=== PATIENT | female | born 1950 | race Caucasian/White ===

== ENCOUNTER → 2017-10-21 12:17 | Outpatient (CLI) | payer MEDICARE, OTHER, SELFPAY ==
[2017-10-21 15:00] LABS: Appearance Urine UA CLEAR; Bilirubin Urine UA NEGATIVE (NEGATIVE); Color Urine UA YELLOW; Glucose Urine UA NEGATIVE (Normal); Ketones Urine UA NEGATIVE (NEGATIVE); Leukocyte Esterase Urine UA 1+ (NEGATIVE); Nitrite Urine UA POSITIVE (Negative); Occult Blood Urine UA 1+ (Negative); Protein Urine UA NEGATIVE (Negative); Urobilinogen Urine UA 0.2 E.U./dL (0.2); pH Urine UA 7.5 (4.5-8.0)
[2017-10-21 15:32] LABS: Bacteria Urine Moderate (10-30); Culture Indicated Urine Specimen Cultured; RBC Urine 5-10/HPF (0-5/HPF); WBC Urine 10-30/HPF (0-5/HPF)
== END ==
PROVIDERS: Family Provider Family Medicine; PCP Family Medicine; Visit Provider Internal Medicine
DX: N39.0 Urinary tract infection, site not specified (principal)
CPT/HCPCS: 81001; 87086; 87186

== ENCOUNTER → 2017-11-11 15:23 | Outpatient (CLI) | payer MEDICARE, OTHER, SELFPAY ==
[2017-11-11 19:38] LABS: Bacteria Urine None Seen; RBC Urine None Seen (0-5/HPF); WBC Urine None Seen (0-5/HPF)
[2017-11-11 19:46] LABS: Appearance Urine UA CLEAR; Bilirubin Urine UA NEGATIVE (NEGATIVE); Color Urine UA YELLOW; Glucose Urine UA NEGATIVE (Normal); Ketones Urine UA NEGATIVE (NEGATIVE); Leukocyte Esterase Urine UA NEGATIVE (NEGATIVE); Nitrite Urine UA Negative (Negative); Occult Blood Urine UA NEGATIVE (Negative); Protein Urine UA NEGATIVE (Negative); Specific Gravity Urine UA <=1.005 (1.000-1.035); Urobilinogen Urine UA 0.2 E.U./dL (0.2); pH Urine UA 6.5 (4.5-8.0)
[2017-11-11 19:57] LABS: Culture Indicated Urine Cult Not Indicated; Squamous Epithelial Cell Urine 0-1 /HPF
== END ==
PROVIDERS: Family Provider Family Medicine; PCP Family Medicine; Visit Provider Internal Medicine
DX: N39.0 Urinary tract infection, site not specified (principal)
CPT/HCPCS: 81001

== ENCOUNTER → 2018-03-19 14:42 | Outpatient (CLI) | payer MEDICARE, OTHER, SELFPAY ==
--- NOTE | 2018-03-19 14:51 | DI.MG.S_ITS ---
BILATERAL DIGITAL DIAGNOSTIC MAMMOGRAM 3D/2D: 03/19/2018 CLINICAL: Right breast lump and pain. Comparison is made to exams dated: 04/26/2017 mammogram - [facility], 03/14/2015 mammogram - [facility], and 02/15/2014 mammogram - [facility]. The tissue of both breasts is heterogeneously dense. This may lower the sensitivity of mammography. There is a square marker overlying the skin of the lower inner right breast at the site of the patient's reported focal pain and palpable abnormality. There is no underlying mammographic abnormality. There is a 1.5 cm oval focal asymmetry in the right breast at the 12 o'clock position middle to posterior depth. There is a subcentimeter asymmetry in the right retroareolar region central to the nipple, which largely resolves with spot compression and likely represents superimposed benign fibroglandular tissue. There is a circular mole marker overlying the left breast. IMPRESSION: INCOMPLETE: NEEDS ADDITIONAL IMAGING EVALUATION 1) No mammographic abnormality to correlate with the site of the patient's reported focal breast pain and palpable abnormality. Targeted diagnostic ultrasound recommended for further evaluation, which will be performed immediately following this exam. 2) Right breast asymmetries as described above. Targeted diagnostic ultrasound recommended for further evaluation, which will be performed immediately following this exam. This exam was interpreted at Station ID: [id number]. NOTE: For mammograms, a report in lay terms will be sent to the patient. Approximately 15% of breast malignancies will not be visualized mammographically. In the management of a palpable breast mass, a negative mammogram must not discourage biopsy of a clinically suspicious lesion. Electronically Signed By: Tobi Chow M.D. ecl/:03/20/2018 09:37:59 copy to: MARA GARRISON letter sent: Additional Imaging Needed ACR BI-RADS Category 0: Incomplete [id number]
--- NOTE | 2018-03-19 14:51 | DI.US.S_ITS ---
LIMITED ULTRASOUND OF RIGHT BREAST: 03/19/2018 CLINICAL: Palpable right breast lump and focal pain. Comparison is made to exams dated: 03/19/2018 mammogram, 04/26/2017 mammogram - [facility], and 03/14/2015 mammogram - [facility]. Real-time and Doppler ultrasound of the right breast lower inner quadrant, 12 o'clock, 6 o'clock, and retroareolar regions were performed. Nick scale images of the real-time examination were reviewed. There is no ultrasound correlate for the previously noted 1.5 cm oval focal asymmetry at 12 o'clock position middle to posterior depth seen on comparison screening mammograms. There is no ultrasound correlate for the previously noted suncentimeter asymmetry in the right retroareolar region on comparison screening mammograms, which also resolved on additional diagnostic mammogram views performed earlier today and likely represented benign superimposed tissues. Targeted ultrasound was performed in the region of the patient's reported focal painful palpable abnormality in the right breast lower inner quadrant. No underlying breast mass or abnormality is identified. IMPRESSION: PROBABLY BENIGN 1) No ultrasound correlate for the 1.5 cm oval focal asymmetry in the right breast seen on screening and diagnostic mammography. A follow-up mammogram and possible ultrasound in 6 months is recommended to demonstrate stability. The patient is advised to monitor her breasts and to return sooner for re-evaluation should she feel anything grow or change. 2) No ultrasound findings to explain patient's reported focal painful palpable abnormality in the right lower inner quadrant. Recommend clinical follow-up for further evaluation and management of the patient's reported symptoms. This area can also be reevaluated on the follow-up imaging recommended above. Electronically Signed By: Tobi Chow M.D. ecl/:03/20/2018 09:46:27 copy to: MARA GARRISON letter sent: Followup Recommended Ultrasound BI-RADS: 3 Probably benign
== END ==
PROVIDERS: Family Provider Family Medicine; PCP Family Medicine
DX: R92.8 Other abnormal and inconclusive findings on diagnostic imaging of breast (principal); N64.4 Mastodynia; N64.89 Other specified disorders of breast
CPT/HCPCS: 76642; 77066; G0279

== ENCOUNTER 2018-03-25 07:02 | Day surgery (SDC) | payer MEDICARE, OTHER, SELFPAY ==
[2018-03-25 07:32] VITALS: BP 105/74; PULSE 74; RESP 14; TEMP 36.3; O2SAT 96; BMI 20.6
[2018-03-25] MEDS: PROPARACAINE 0.5% OPHTH SOL 2 DROPS EYE-RIGHT (07:46)
--- NOTE | 2018-03-25 07:55 | SUR.PREOP ---
Confirmed with patient that her hearing aids are removed and secured.
--- NOTE | 2018-03-25 08:11 | PM.PREOP ---
Pre-operative Note Interval Note History & Physical reviewed/Exam performed by Physician: No Changes to H&P: No
--- NOTE | 2018-03-25 08:11 | PM.OP.1 ---
Operative Date/Time/Diagnoses Pre-op diagnosis: Nuclear cataract right eye Procedure & Clinicians Procedure: Cataract Surgery Same procedure as scheduled: Yes Surgeon: Sumanth Tellez Anesthesia Type: MAC +/- and Sedation Operative Notes Procedure in detail: Patient brought to the operating suite. Tetracaine drops placed in the right eye. The marking instrument was used to luna the vertical and horizontal meridian. Patient was prepped and draped in sterile manner. Wire lid speculum was placed in the eye. The 60 degree meridian was marked. Betadine drops were placed on the eye. This was irrigated. Lidocaine jelly was placed on the eye. A paracentesis port was created with a side-port blade. 0.1 mL 1% preservative free lidocaine was injected into the anterior chamber. The anterior chamber was deepened with viscoelastic. 2.6 mm keratome was used to create a temporal clear corneal incision. Cystotome and Utrata forceps were used to create continuous tear capsulorrhexis. Balanced salt solution was used to hydro dissect the nucleus. The phacoemulsification handpiece was inserted and the nucleus was removed using the stop and chop technique. The irrigation aspiration handpiece was inserted and the remaining cortex was removed. Anterior chamber was deepened with viscoelastic. An Felix [id number] intraocular lens with a power of 25.5 was injected into the capsular bag. Irrigation aspiration handpiece was inserted and the remaining viscoelastic was removed. The lens was rotated to the 60 degree meridian. Incision was hydrated with balanced salt solution and found to be leak free with pressure with Weck-Hillary sponges. 0.1 mL Vigamox injected anterior chamber. 0.3 mL Kenalog 10 mg was injected subconjunctivally. Lid speculum was removed. The patient left the operating room in excellent condition. Complications: none Condition: stable Disposition: same day surgery
[2018-03-25] MEDS: CATARACT EYE COMPOUND (10 DROPS/SYRINGE) 3 DROPS EYE-OP (08:13)
[2018-03-25] MEDS: MOXIFLOXACIN OPHTH DROPS 3 ML BOTTLE 2 DROPS INJ (08:19)
[2018-03-25] MEDS: PHENYLEPHRINE/LIDOCAINE VIAL (OR) 0.2 ML EYE-OP (08:19)
[2018-03-25] MEDS: TRIAMCINOLONE 50 MG/5 ML VIAL INJ (08:19)
[2018-03-25] MEDS: CHONDROIDTIN/SOD HYALURONATE 1.05 ML SYRINGE INTRAOCULA (08:20)
[2018-03-25] MEDS: LIDOCAINE JELLY 2% 5 ML 1 APPLIC TOP (08:20)
[2018-03-25] MEDS: BALANCED SALT IRRIG SOLN NO.2 500 ML, EPINEPHrine 1 MG IRR (08:21)
[2018-03-25] MEDS: TETRACAINE 0.5% OPHTH DROPS 4 ML 2 DROPS EYE-OP (08:21)
[2018-03-25 08:45] VITALS: BP 98/64; PULSE 68; RESP 18; TEMP 36.4; O2SAT 95
== END 2018-03-25 09:03 ==
PROVIDERS: Family Provider Family Medicine; PCP Family Medicine; Visit Provider Ophthalmology
DX: H25.11 Age-related nuclear cataract, right eye (principal)
CPT/HCPCS: J0171; J2250; J3010; J3301; V2787

== ENCOUNTER 2018-04-08 08:59 | Day surgery (SDC) | payer MEDICARE, OTHER, SELFPAY ==
[2018-04-08] MEDS: PROPARACAINE 0.5% OPHTH SOL 2 DROPS EYE-OP (09:47)
[2018-04-08] MEDS: CATARACT EYE COMPOUND (10 DROPS/SYRINGE) 3 DROPS EYE-OP (09:50)
[2018-04-08 09:52] VITALS: BP 117/71; PULSE 64; RESP 15; TEMP 36.6; O2SAT 98; BMI 20.6
--- NOTE | 2018-04-08 10:22 | PM.PREOP ---
Pre-operative Note Interval Note History & Physical reviewed/Exam performed by Physician: No Changes to H&P: No
--- NOTE | 2018-04-08 10:23 | PM.OP.1 ---
Operative Date/Time/Diagnoses Pre-op diagnosis: Nuclear Cataract Left eye Post-op diagnosis: same Procedure & Clinicians Surgeon: Sumanth Tellez Anesthesia Type: MAC +/- and Sedation Operative Notes Procedure in detail: Patient brought to the operating suite. Tetracaine drops placed in the left eye. The marking instrument was used to luna the vertical and horizontal meridians. Patient was prepped and draped in sterile manner. Wire lid speculum was placed in the eye. Betadine drops were placed on the eye. This was irrigated. Lidocaine jelly was placed on the eye. A paracentesis port was created with a side-port blade. 0.1 mL 1% preservative free lidocaine was injected into the anterior chamber. The anterior chamber was deepened with viscoelastic. 2.6 mm keratome was used to create a temporal clear corneal incision. Cystotome and Utrata forceps were used to create continuous tear capsulorrhexis. Balanced salt solution was used to hydro dissect the nucleus. The phacoemulsification handpiece was inserted and the nucleus was removed using the stop and chop technique. The irrigation aspiration handpiece was inserted and the remaining cortex was removed. Anterior chamber was deepened with viscoelastic. An Felix [id number] intraocular lens with a power of 26.5 was injected into the capsular bag. Irrigation aspiration handpiece was inserted and the remaining viscoelastic was removed. The lens was rotated to the 90 degree meridian. Incision was hydrated with balanced salt solution and found to be leak free with pressure with Weck-Hillary sponges. 0.1 mL Vigamox injected anterior chamber. 0.3 mL Kenalog 10 mg was injected subconjunctivally. Lid speculum was removed. The patient left the operating room in excellent condition. Complications: none Condition: stable Disposition: same day surgery
[2018-04-08] MEDS: MOXIFLOXACIN OPHTH DROPS 3 ML BOTTLE 2 DROPS INJ (10:34)
[2018-04-08] MEDS: PHENYLEPHRINE/LIDOCAINE VIAL (OR) 0.2 ML EYE-OP (10:34)
[2018-04-08] MEDS: CHONDROIDTIN/SOD HYALURONATE 1.05 ML SYRINGE INTRAOCULA (10:34)
[2018-04-08] MEDS: TRIAMCINOLONE 50 MG/5 ML VIAL INJ (10:34)
[2018-04-08] MEDS: TETRACAINE 0.5% OPHTH DROPS 4 ML 2 DROPS EYE-OP (10:35)
[2018-04-08] MEDS: LIDOCAINE JELLY 2% 5 ML 1 APPLIC TOP (10:35)
[2018-04-08] MEDS: BALANCED SALT IRRIG SOLN NO.2 500 ML, EPINEPHrine 1 MG IRR (10:35)
[2018-04-08 10:50] VITALS: BP 102/69; PULSE 73; RESP 18; O2SAT 95
== END 2018-04-08 11:18 ==
PROVIDERS: Family Provider Family Medicine; PCP Family Medicine; Visit Provider Ophthalmology
DX: H25.12 Age-related nuclear cataract, left eye (principal)
CPT/HCPCS: J0171; J2250; J3301; V2787

== ENCOUNTER → 2018-09-30 11:49 | Outpatient (CLI) | payer MEDICARE, OTHER, SELFPAY ==
--- NOTE | 2018-09-30 11:52 | DI.RAD.S_ITS ---
PROCEDURE: XR LUMBAR SPINE MIN 4V INDICATIONS: New onset low back pain TECHNIQUE: 5 views of the lumbar spine acquired. COMPARISON: [facility], , L-SPINE WITHOUT CONTRAST, 03/05/2014, 11:12. FINDINGS: Bones: 5 [id number] vertebrae are present. There is severe levoscoliosis. No vertebral body compression fractures. No suspicious bony lesions. Severe degenerative disc disease is present at L1-L2, L2-L3, and L3-L4. There is moderate to severe facet arthropathy at L4-L5 and L5-S1. On flexion and extension, there is limited range of motion. There is osteopenia. Soft tissues: Overlying bowel gas pattern is normal. No suspicious soft tissue calcifications. Flexion/extension: There is normal range of motion, with preserved normal alignment. IMPRESSION: 1. Severe levoscoliosis. 2. Severe degenerative disc disease. 3. Moderate to severe facet arthropathy in the lower lumbar spine. 4. Reduced range of motion on flexion and extension. 5. Osteopenia. Dictated by: Med Butt M.D. on 09/30/2018 at 17:00 Approved by: Med Butt M.D. on 09/30/2018 at 17:03
== END ==
PROVIDERS: Family Provider Family Medicine; PCP Family Medicine; Visit Provider Family Medicine
DX: M54.5 Low back pain (principal); M41.86 Other forms of scoliosis, lumbar region; M51.36 Other intervertebral disc degeneration, lumbar region; M47.816 Spondylosis without myelopathy or radiculopathy, lumbar region; M85.88 Other specified disorders of bone density and structure, other site; Z78.0 Asymptomatic menopausal state; M81.0 Age-related osteoporosis without current pathological fracture
CPT/HCPCS: 72110; 77080

== ENCOUNTER → 2018-11-26 13:54 | Outpatient (CLI) | payer MEDICARE, OTHER, SELFPAY ==
--- NOTE | 2018-11-26 13:59 | DI.MRI.S_ITS ---
PROCEDURE: MR LUMBAR SPINE WO CON INDICATIONS: Low back pain TECHNIQUE: Noncontrast sagittal T1 spin echo and T2 fast echo, sagittal STIR, axial T1 and T2 fast spin echo through the lumbar spine. In cases with scoliosis, additional coronal T2 fast spin echo may be performed. COMPARISON: [facility], MR, L-SPINE WITHOUT CONTRAST, 03/05/2014, 11:12. [facility], CR, XR LUMBAR SPINE MIN 4V, 09/30/2018, 12:04. FINDINGS: Image quality: Excellent. Alignment and Curvature: There is severe leftward curvature of the upper lumbar spine, as before. 5 lumbar type vertebral bodies are present by plain film. Mild grade 1 retrolisthesis of T12 on L1, L1 on L2 and L2 on L3. Mild grade 1 anterolisthesis of L3 on L4. Mild grade 1 retrolisthesis of L4 on L5. Mild grade 1 anterolisthesis of L5 on S1. Bone Marrow: Marrow is of normal overall signal. No acute vertebral body compression fractures. Mild reactive signal within the endplates adjacent to the T9-T10, T10-T11, T11-T12, and L4-L5 intervertebral discs. There is moderate reactive signal within the endplates adjacent to the 1 L2, L2-L3, and L3-L4 intervertebral discs. Spinal Cord: Conus medullaris terminates at the L1-L2 disc space level. Visualized cord demonstrates normal signal and size. Paraspinous Soft Tissues: No paravertebral masses. T10-T11: Mild disc height loss and desiccation. Mild diffuse disc bulge. Mild bilateral facet hypertrophy. Mild canal stenosis. Moderate left and mild right foraminal stenosis. No change. T11-T12: Mild disc height loss and desiccation. Mild diffuse disc bulge. Mild facet hypertrophy and ligament flavum hypertrophy bilaterally. Mild canal stenosis. Mild bilateral foraminal stenosis. T12-L1: Moderate disc desiccation. Mild disc height loss. Mild diffuse disc bulge. Mild facet and ligament flavum hypertrophy bilaterally. Mild canal stenosis. Mild bilateral foraminal stenosis. No change. L1-L2: Severe disc height loss and desiccation. Mild diffuse disc bulge with small superimposed right far lateral protrusion. Mild bilateral facet and ligamentum flavum hypertrophy. Mild canal stenosis. Mild right greater than left foraminal stenosis. No change. L2-L3: Severe disc height loss and desiccation. Mild diffuse disc bulge/osteophyte. Mild facet and ligament flavum hypertrophy. Mild canal stenosis. Mild right greater than left foraminal stenosis. No change. L3-L4: Severe disc height loss and desiccation. Mild diffuse disc bulge/osteophyte. Mild facet hypertrophy bilaterally. Mild canal stenosis. Moderate right and mild left foraminal stenosis. No change. L4-L5: Mild disc height loss. Moderate disc desiccation. Moderate diffuse disc bulge with superimposed left far lateral broad-based protrusion. Moderate bilateral facet hypertrophy. Moderate ligament flavum hypertrophy. Increased, mild canal stenosis. Increased, severe left foraminal stenosis. No change in mild right foraminal stenosis. There is new compression of the left L4 nerve root. There is increased left lateral recess stenosis with left L5 nerve root compression. L5-S1: Mild disc height loss. Moderate disc desiccation. Mild diffuse disc bulge. Mild bilateral facet hypertrophy. Mild canal stenosis. Mild subarticular foraminal stenosis bilaterally. No change. IMPRESSION: 1. Severe leftward curvature of the upper lumbar spine. 2. Multilevel degenerative disc and facet disease, as well as ligamentum flavum hypertrophy and epidural lipomatosis. 3. Mild multilevel canal stenoses. 4. Multilevel foraminal stenoses, worst at L4-L5 on the left, where there is associated L4 nerve root compression. 5. Increased left lateral recess stenosis L4-L5 associated with left L5 nerve root compression. 6. Recommend correlation with clinical symptoms to ascertain relevance of these findings. Dictated by: Luigi Haley M.D. on 11/26/2018 at 16:35 Approved by: Luigi Haley M.D. on 11/26/2018 at 16:43
--- NOTE | 2018-11-26 13:59 | DI.MG.S_ITS ---
UNILATERAL RIGHT DIGITAL DIAGNOSTIC MAMMOGRAM 3D/2D: 11/26/2018 CLINICAL: Short term follow up right breast. Comparison is made to exams dated: 03/19/2018 mammogram, 04/26/2017 mammogram - [facility], 03/14/2015 mammogram - [facility], and 03/19/2018 ultrasound - [facility]. The tissue of right breast is heterogeneously dense. This may lower the sensitivity of mammography. Previously identified 1.5 cm oval focal asymmetry in the right breast at the 12 o'clock position middle to posterior depth remains stable. This demonstrated no ultrasound correlate on comparison right breast ultrasound of 03/19/2018. Previously identified subcentimeter asymmetry in the right retroareolar region central to the nipple remains stable. This demonstrated no ultrasound correlate on comparison right breast ultrasound of 03/19/2018. IMPRESSION: PROBABLY BENIGN 1) Previously identified 1.5 cm oval focal asymmetry in the right breast at the 12 o'clock position middle to posterior depth remains stable. A follow-up diagnostic mammogram (with possible ultrasound if indicated) in 6 months is recommended to demonstrate continued stability. The patient is advised to monitor her breasts and to return sooner for reevaluation if she feels anything grow or change in her breasts. 2) Previously identified subcentimeter asymmetry in the right retroareolar region central to the nipple remains stable. This demonstrated no ultrasound correlate on comparison right breast ultrasound of 03/19/2018. A follow-up diagnostic mammogram (with possible ultrasound if indicated) in 6 months is recommended to demonstrate continued stability. The patient is advised to monitor her breasts and to return sooner for reevaluation if she feels anything grow or change in her breasts. This exam was interpreted at Station ID: [id number]. NOTE: For mammograms, a report in lay terms will be sent to the patient. Approximately 15% of breast malignancies will not be visualized mammographically. In the management of a palpable breast mass, a negative mammogram must not discourage biopsy of a clinically suspicious lesion. Electronically Signed By: Tobi Chow M.D. ecl/:11/26/2018 15:32:54 copy to: MARA GARRISON letter sent: Followup Recommended ACR BI-RADS Category 3: Probably benign [id number]
== END ==
PROVIDERS: Family Provider Family Medicine; PCP Family Medicine; Visit Provider Physical Medicine & Rehabilitation
DX: R92.8 Other abnormal and inconclusive findings on diagnostic imaging of breast (principal); N64.89 Other specified disorders of breast; M54.5 Low back pain; M51.16 Intervertebral disc disorders with radiculopathy, lumbar region; M51.17 Intervertebral disc disorders with radiculopathy, lumbosacral region; M48.061 Spinal stenosis, lumbar region without neurogenic claudication; M48.07 Spinal stenosis, lumbosacral region; M47.27 Other spondylosis with radiculopathy, lumbosacral region; E88.2 Lipomatosis, not elsewhere classified
CPT/HCPCS: 72148; 77065; G0279

== ENCOUNTER 2019-02-05 12:12 | Outpatient (CLI) | payer MEDICARE, OTHER, SELFPAY ==
[2019-02-05] VITALS (9 sets, daily range): BP systolic 102–161; BP diastolic 62–93; PULSE 71–121; RESP 16; O2SAT 96–98
--- NOTE | 2019-02-05 12:15 | DI.RAD.S_ITS ---
PROCEDURE: PAIN L/S FACET INJ/BLK 1ST MALIK COMPARISON: None. INDICATIONS: SPONDYLOSIS FINDINGS: 6 intraoperative fluoroscopy images demonstrate needle localization at L2-L3 and L3-L4 facet joints bilaterally. Note is made of moderate to severe levoscoliosis. Large bridging osteophytes are present. IMPRESSION: Fluoroscopy for pain management. Dictated by: Med Butt M.D. on 02/05/2019 at 14:30 Approved by: Med Butt M.D. on 02/05/2019 at 14:31
[2019-02-05] MEDS: MIDAZOLAM 5 MG/5 ML VIAL IV (13:42)
[2019-02-05] MEDS: fentaNYL 100 MCG/2 ML INJ 50 MCG IV (13:42)
[2019-02-05] MEDS: BETAMETHASONE 30 MG/5 ML MDV 6 MG INJ (13:47)
[2019-02-05] MEDS: LIDOCAINE 1% 20 ML 10 ML INJ (13:47)
[2019-02-05] MEDS: IOPAMIDOL 15 ML VIAL 3 ML INJ (13:47)
[2019-02-05] MEDS: BUPIVACAINE 0.5% (PF) VIAL 2 ML INJ (13:47)
--- NOTE | 2019-02-05 14:00 | P.PCN_ITS ---
Procedures Date/Time Date of procedure: 02/05/19 Time of procedure: 14:00 General Procedure description: PREOP DIAGNOSIS 1. FACET ARTHROPATHY, 2. AXIAL LBP, 3. MULTILEVEL DDD, POST OP DIAGNOSIS 1. FACET ARTHROPATHY, 2. AXIAL LBP, 3. MULTILEVEL DDD, PROCEDURES 1. FLUORSCOPICALLY GUIDED CONTRAST CONTROLLED FACET JOINT INJECTIONS BILATERAL L2/3, L3/4 SURGEON: Paul Knight, INDICATION Abby is referred by Dr. Pinto is referred for treatment of Axial LBP FINDINGS Multilevel Facet Arthropathy with Clinically significant axial LBP DESCRIPTION OF PROCEDURE Fluoroscopically guided, contrast-controlled bilateral L2/3, L3/4 facet joint injections. Following review of allergy and review of potential side effects and complications, including, but not necessarily limited to, infection, allergic reaction, local tissue breakdown, stroke, temporary or permanent nerve injury, paralysis, and possible , the patient indicated that the patient understood and agreed to proceed. An informed consent document was signed by the patient, witnessed by a nurse, and placed in the patient's chart. Additionally, other treatment options including medications, modalities, and physical therapy were reviewed with the patient. After review of previous anaesthesic history and IV conscious sedation the patient was deemed safe to proceed with todays procedure with IV conscious sedation as ASA class II designation. Safety time-out was performed to confirm patient ID, procedure to be performed and site of procedure. IV sedation was accomplished with a combination of 4mg of Versed and 50mcg of Fentanyl administered by the RN after DO order, titrated to patient comfort during the course of the procedure while the patient remained responsive to all verbal commands In the prone position, following sterile prep and drape of the lumbar region, the posterior aspect of the L2/3, L3/4 facet joints were identified fluoroscopically. The skin was anesthetized via a 25-gauge 1.5-inch needle with 1% lidocaine solution into the corresponding facet joints. At this point, a 22- gauge 3.5-inch spinal needle was atraumatically introduced and advanced under fluoroscopic guidance into the corresponding facet joints. Following negative aspiration, injections of approximately 0.2-cc of Isovue 200 confirmed interarticular placement without vascular uptake. The identical procedure was then performed at the L2/3, L3/4 facet joints on the left. Radiological data, including multiple fluoroscopic views of the lumbosacral spine, reveal a spinal needle at the L2/3, L3/4 facet joints bilaterally. Subsequent views show flow of contrast material both superiorly and inferiorly within the joint space without vascular or intrathecal uptake. At this point, a total of 0.5 cc including a mixture of 0.25cc Marcaine and 0.25cc betamethasone was injected without complication into each of the corresponding facet joints. The patient tolerated the procedure well without signs or symptoms of complications prior to transfer to the recovery area continued monitoring without incident. The patient was then transferred to the recovery area where they were observed for an appropriate period of time after the injection. The patient reported a VAS score of 7 prior to the procedure and a post-procedure VAS of 0. Total Fluoroscopy Time: 20.3 seconds Total Conscious Sedation Time: 24min POST OP INSTRUCTIONS The patient was provided a Pain Log to continue to record their response to the target-specific procedure prior to follow-up visit with their referring physician. Additionally, specific post-injection care instructions and a contact number to our office were provided if concerns arise regarding possible complications associated with the procedure are suspected. Paul Knight DO Complications: none
--- NOTE | 2019-02-05 14:48 | PC.NURSE ---
Post procedure note: Medicated per providers orders. Patient tolerated procedure well. VSS throughout. Able to sit up and transfer to /c without any difficulties. Handoff report given to Regis Jones RN @[id number] Pain level 0/10. No unusual numbness or tingling to lower extremities.
== END 2019-02-05 14:32 | disposition home or self-care (01) ==
LOC: RAD 12:14
PROVIDERS: Family Provider Family Medicine; PCP Family Medicine; Visit Provider Physical Medicine & Rehabilitation
DX: M47.816 Spondylosis without myelopathy or radiculopathy, lumbar region (principal); M54.5 Low back pain; M51.36 Other intervertebral disc degeneration, lumbar region
CPT/HCPCS: 64493; 64494; 99152; J0702; J2250; J3010

== ENCOUNTER → 2019-02-11 14:33 | Outpatient (CLI) | payer MEDICARE, OTHER, SELFPAY ==
--- NOTE | 2019-02-11 14:35 | DI.RAD.S_ITS ---
PROCEDURE: XR ANKLE RT MIN 3V INDICATIONS: R ankle injury/pain TECHNIQUE: 3 views of the ankle were acquired. COMPARISON: None. FINDINGS: Bones: No fractures or dislocations. Ankle mortise is normally aligned. No suspicious bony lesions. Soft tissues: No tibiotalar joint effusion. Achilles tendon appears normal. IMPRESSION: No trauma found. Incidental note is made of a partially visualized osteotomy fixation screw first metatarsal distally. Dictated by: Dick Pugh M.D. on 02/11/2019 at 15:02 Approved by: Dick Pugh M.D. on 02/11/2019 at 15:03
== END ==
PROVIDERS: PCP Family Medicine; Visit Provider Family Medicine
DX: M25.571 Pain in right ankle and joints of right foot (principal); S99.911A Unspecified injury of right ankle, initial encounter; X58.XXXA Exposure to other specified factors, initial encounter
CPT/HCPCS: 73610

== ENCOUNTER → 2019-04-21 16:14 | Outpatient (CLI) | payer MEDICARE, OTHER, SELFPAY ==
--- NOTE | 2019-04-21 16:16 | DI.MRI.S_ITS ---
PROCEDURE: MR ANKLE RT WO CON INDICATIONS: right ankle injury/pain TECHNIQUE: Noncontrast sagittal T1 spin echo and T2 fast spin echo with fat saturation, axial proton density fast spin echo and T2 fast spin echo with fat saturation, coronal T1 spin echo and T2 fast spin echo with fat saturation through the ankle/hindfoot. COMPARISON: [facility], CR, XR ANKLE RT MIN 3V, 02/11/2019, 14:32. FINDINGS: Image quality: Diagnostic. Bones and joints: No acute fracture, dislocation, or suspicious osseous lesion is identified involving the osseous structures of the midfoot or hindfoot. The alignment of the ankle mortise is anatomic. There are no osteochondral defects identified involving the tibial plafond toward the talar dome. There are mild degenerative changes identified involving the posterior subtalar joint. No significant joint effusions of the midfoot or hindfoot are appreciated. Medial structures: The deltoid and spring ligaments appear to be intact. The posterior tibialis tendon demonstrates moderate focal enlargement along the medial aspect of the body of the talus with associated moderate grade intrasubstance partial thickness tearing and fluid contained within its corresponding tendon sheath. The flexor digitorum longus and flexor hallucis longus tendons appear to be within normal limits. The posterior tibial nerve through the region of the tarsal tunnel is unremarkable. Lateral structures: The anterior and posterior distal tibiofibular ligaments are intact. The anterior and posterior talofibular ligaments are also intact. The calcaneofibular ligament is not well-seen, but probably is intact. The peroneus brevis and peroneus longus tendons are noted to be intact. There is mild flattening involving the peroneus brevis tendon and slight increased signal involving the peroneus longus tendon. No significant fluid is contained within their corresponding tendon sheaths. Normal fatty signal is seen within the sinus tarsi. Anterior structures: The tibialis anterior, extensor hallucis longus, and extensor digitorum longus tendons appear intact. Posterior and plantar structures: Achilles tendon is intact. Medial and lateral bands of the plantar fascia are of normal thickness. IMPRESSION: 1. Moderate grade intrasubstance partial thickness tearing and tendinopathy of the tibialis posterior tendon with corresponding tenosynovitis. 2. Probable mild peroneus brevis and peroneus longus tendinopathy without significant tearing. 3. Mild degenerative changes involving the posterior subtalar joint. Dictated by: David Casper M.D. on 04/21/2019 at 16:27 Approved by: David Casper M.D. on 04/21/2019 at 16:30
== END ==
PROVIDERS: PCP Family Medicine; Referring Provider Family Medicine; Visit Provider Family Medicine
DX: S99.911A Unspecified injury of right ankle, initial encounter (principal); S96.811A Strain of other specified muscles and tendons at ankle and foot level, right foot, initial encounter; M25.571 Pain in right ankle and joints of right foot; M65.871 Other synovitis and tenosynovitis, right ankle and foot
CPT/HCPCS: 73721

== ENCOUNTER 2019-04-24 13:33 | Outpatient (CLI) | payer MEDICARE, OTHER, SELFPAY ==
[2019-04-24] VITALS (10 sets, daily range): BP systolic 114–139; BP diastolic 78–95; PULSE 65–81; RESP 16; TEMP 36.4; O2SAT 97–99
--- NOTE | 2019-04-24 13:36 | DI.RAD.S_ITS ---
PROCEDURE: PAIN L/S FACET INJ/BLK 1ST MALIK COMPARISON: [facility], XA, PAIN L/S FACET INJ/BLK 1ST MALIK, 02/05/2019, 13:39. INDICATIONS: SPONDYLOSIS FINDINGS: Needle tip localizations are appropriate for L2, L3, and L4 bilateral medial branch blocks. IMPRESSION: Normal needle tip positioning for medial branch block procedures, 6 total, discussed above. Dictated by: Dick Pugh M.D. on 04/24/2019 at 15:42 Approved by: Dick Pugh M.D. on 04/24/2019 at 15:43
[2019-04-24] MEDS: MIDAZOLAM 5 MG/5 ML VIAL IV (14:07)
[2019-04-24] MEDS: fentaNYL 100 MCG/2 ML INJ 50 MCG IV (14:08)
[2019-04-24] MEDS: LIDOCAINE 1% 20 ML 5 ML INJ (14:17)
[2019-04-24] MEDS: IOPAMIDOL 15 ML VIAL 3 ML INJ (14:17)
[2019-04-24] MEDS: BUPIVACAINE 0.5% (PF) VIAL 2 ML INJ (14:17)
--- NOTE | 2019-04-24 14:25 | PC.NURSE ---
ASSISTING PT OFF TABLE AND TRANSPORTING TO POST PROC AREA IN STABLE CONDITION. PASSING RN CARE OF PT OFF TO KIMBERLY Iglesias RN.
--- NOTE | 2019-04-24 14:30 | PM.PROC.1 ---
Procedures Date/Time Date of procedure: 04/24/19 Time of procedure: 14:30 General Procedure description: POST OP DIAGNOSIS 1. FACET ARTHROPATHY PROCEDURES 1. BILATERAL L2, L3, L4 DIAGNOSTIC MB BLOCKS PHYSICIAN: DO ADOLFO Ding Abby is referred by Dr. Pinto for treatment of Bilateral Axial LBP. DESCRIPTION OF PROCEDURE Fluoroscopically guided, contrast-controlled bilateral L2, L3, L4 medial branch blocks with 0.5cc of 0.5% Marcaine. Following review of allergy and review of potential side effects and complications, including, but not necessarily limited to, infection, allergic reaction, local tissue breakdown, nerve injury, paralysis, stroke and possible , the patient indicated that the patient understood and agreed to proceed. An informed consent document was signed by the patient, witnessed by a nurse, and placed in the patient's chart. After review of previous anaesthesic history and IV conscious sedation the patient was deemed safe to proceed with todays procedure with IV conscious sedation as ASA class II designation. Safety time-out was performed to confirm patient ID, procedure to be performed and site of procedure. IV sedation was accomplished with a combination of 2mg of Versed and 50mcg of Fentantyl was administered by the RN after DO order, titrated to patient comfort during the course of the procedure while the patient remained responsive to all verbal commands In the prone position, following sterile prep and drape of the lumbar region, the right L2, L3, L4 anatomical location of the medial branch of the dorsal ramus was identified fluoroscopically. Subsequently an anesthetic skin wheal using 1% lidocaine solution was initiated at each of the anatomical spots. Subsequently then a 22-gauge 3.5-inch spinal needle was atraumatically introduced and advanced under fluoroscopic guidance at each of the corresponding sites at the right L2, L3, L4 MB. After negative aspiration, 0.2cc of Isovue 200 was injected, confirming placement without vascular or intrathecal uptake. Subsequently then 0.5cc of 0.5% Marcaine solution was injected at each of the corresponding sites at the right L2, L3, L4 medial branch locations. The identical procedure was replicated on the left. The patient tolerated the procedure well without signs or symptoms of complications. The patient tolerated the procedure well without signs or symptoms of complications prior to transfer to the recovery area continued monitoring without incident. Post-procedure, the patient was monitored initiating provocative activities to measure the amount of relief from block of the facetogenic pain. The patient reported a VAS of 7 prior to the procedure and a post-procedure VAS of 1. It has been a pleasure to assist in the diagnostic and therapeutic care of your patient. Total Fluoroscopy Time: 12 seconds Total Conscious Sedation Time: 24min POST OP INSTRUCTIONS The patient was provided with a Pain Log to complete over the next several hours and subsequent days prior to the patient's follow up with the ordering physician. If the patient has kaiako kura kaupapa maori relief to the solution applied, then they may be a candidate for medial branch rhizotomy. The patient is aware, was provided, once again, with a Pain Log and will follow up with the referring physician for review and clinical correlation Paul Knight DO Complications: none
--- NOTE | 2019-04-24 15:02 | PC.NURSE ---
patient arrived at 1429 via w/c from procedure, able to transfer self to chair, pt states pain free at this time, snacks and water given and tolerated. Assuming care from Maria Del Carmen
== END 2019-04-24 14:57 | disposition home or self-care (01) ==
LOC: RAD 13:36
PROVIDERS: PCP Family Medicine; Referring Provider Physical Medicine & Rehabilitation; Visit Provider Physical Medicine & Rehabilitation
DX: M47.816 Spondylosis without myelopathy or radiculopathy, lumbar region (principal); M54.5 Low back pain
CPT/HCPCS: 64493; 64494; 99152; J2250; J3010

== ENCOUNTER → 2019-07-25 09:58 | Outpatient (CLI) | payer MEDICARE, OTHER, SELFPAY ==
[2019-07-26 08:19] LABS: COVID19 Sendout Not Detected (Not Detect)
== END ==
PROVIDERS: PCP Family Medicine; Visit Provider Physician Assistant
DX: Z01.818 Encounter for other preprocedural examination (principal)
CPT/HCPCS: 87635

== ENCOUNTER 2019-07-28 09:53 | Outpatient (CLI) | payer MEDICARE, OTHER, SELFPAY ==
[2019-07-28] VITALS (14 sets, daily range): BP systolic 123–155; BP diastolic 69–94; PULSE 67–84; RESP 14–16; TEMP 36.4; O2SAT 96–100
--- NOTE | 2019-07-28 09:56 | DI.RAD.S_ITS ---
PROCEDURE: PAIN L/S MED/LAT N RFA BILAT INDICATIONS: SPONDYLOSIS FINDINGS: Fluoroscopic spot filming was performed to verify placement of spinal needles at the L2, L3, L4 level(s), as labeled on the films. Appropriate location(s) of the needle tip(s) was confirmed by injection of iodinated contrast. Dictated by: Colton Souza M.D. on 07/28/2019 at 14:52 Approved by: Colton Souza M.D. on 07/28/2019 at 14:52
[2019-07-28] MEDS: fentaNYL 100 MCG/2 ML INJ 50 MCG IV (11:34)
[2019-07-28] MEDS: MIDAZOLAM 5 MG/5 ML VIAL IV (11:50)
[2019-07-28] MEDS: LIDOCAINE 1% 20 ML 10 ML INJ (11:51)
[2019-07-28] MEDS: BUPIVACAINE 0.5% (PF) VIAL 5 ML INJ (11:51)
--- NOTE | 2019-07-28 12:20 | PC.NURSE ---
ASSISTING PT OFF TABLE AND TRANSPORTING TO POST PROC AREA IN STABLE CONDITION. PASSING RN CARE OF PT OFF TO STEVEN MCGOWAN.
--- NOTE | 2019-07-28 12:26 | P.PCN_ITS ---
Procedures Date/Time Date of procedure: 07/28/19 Time of procedure: 12:26 General Procedure description: PREOP DIAGNOSIS 1. RECALCITRANT FACET ARTHROPATHY, POST OP DIAGNOSIS 1. RECALCITRANT FACET ARTHROPATHY PROCEDURES 1. BILATERAL L2, L3 AND L4 MEDIAL BRANCH RADIOFREQUENCY NEUROTOMY PHYSICIAN: Paul Knight DO INDICATIONS: Abby is referred by for treatment of facet arthropathy. DESCRIPTION OF PROCEDURE Bilateral L2, L3 and L4 medial branch radio-frequency neurotomy The patient is well known to this clinic having undergone previous facet injections with good but temporary relief. The patient has experienced appropriate, concordant relief with previous facet and median branch blocks but the patient's pain has been recalcitrant to further conservative measures. Therefore, based upon the patient's relief and persistent symptoms, the patient is considered an appropriate candidate for facet rhizotomy. All of the patient's questions regarding the risks versus benefits of the procedure, including, but not limited to, bleeding, infection, temporary as well as lasting nerve injury, paralysis, stroke, and , as well treatment alternatives were answered to satisfaction. After obtaining informed consent, denial of pertinent drug allergies, as well as being made aware of the potential risks of bleeding, infection, spinal cord trauma, paralysis, temporary and permanent nerve damage, seizure, stroke, and possible , the patient was brought to the fluoroscopy suite and positioned prone on the fluoroscopy table. The lumbar region was prepped with Betadine and covered with a fenestrated drape in the usual sterile fashion. Appropriate monitors applied including pulse oximeter, pulse, and blood pressure for regular monitoring throughout the procedure. After review of previous anaesthesic history and IV conscious sedation the patient was deemed safe to proceed with todays procedure with IV conscious sedation as ASA class II designation. Safety time-out was performed to confirm patient ID, procedure to be performed and site of procedure. IV sedation was accomplished with a combination of 5mg of Versed and 50mcg of Fentanyl administered by the RN after DO order, titrated to patient comfort during the course of the procedure while the patient remained responsive to all verbal commands. After local infiltration using 1% lidocaine, under fluoroscopic guidance, a 10- cm RF insulated needle with a 10-mm active tip was positioned parallel to the junction of the left the superior articulating process where the L2 medial branch resides. Needle placement was confirmed with sensory stimulation at 50 Hz, with motor stimulation of .5v on the left which produced local stimulation without radicular component. The stimulation was then increased to 1.5v with, once again, only local multifidus stimulation without radicular component. This was then followed by two discreet lesions performed at 80 degrees Celsius for 90 seconds each. The needle was then removed and the identical procedure was performed along the length of the left L3 medial branch with motor stimulation at .7v on the left. The needle was then removed and identical procedure was once again performed along the length of the left [id number] branch with motor stimulation of .5v. Attention was then refocused to the right where the identical procedure was replicated. The patient tolerated the procedure well without signs or symptoms of complications prior to transfer to the recovery area continued monitoring without incident. The patient was then transferred to the recovery area where they were observed for an appropriate period of time after the injection. The patient reported a VAS score of 7 prior to the procedure and a post-procedure VAS of 1. Total Fluoroscopy Time: 26 seconds Total Conscious Sedation Time: 34min POST OP INSTRUCTIONS The patient was provided a Pain Log to continue to record the patient's response to the target-specific procedure prior to the patient's follow-up visit with the referring physician. Additionally, specific post-injection care instructions and a contact number to our office were provided if concerns arise regarding possible complications associated with the procedure are suspected. Paul Knight DO Complications: none
--- NOTE | 2019-07-28 12:40 | PC.NURSE ---
Returned to post procedural room via . Stable transfer from to chair with only 1PA. Resumed monitoring from STEVEN Joyce
== END 2019-07-28 12:43 | disposition home or self-care (01) ==
LOC: RAD 09:54
PROVIDERS: PCP Family Medicine; Referring Provider Physical Medicine & Rehabilitation; Visit Provider Physical Medicine & Rehabilitation
DX: M47.816 Spondylosis without myelopathy or radiculopathy, lumbar region (principal)
CPT/HCPCS: 64635; 64636; 99152; 99153; J2250; J3010

== ENCOUNTER → 2019-09-23 17:49 | Outpatient (CLI) | payer MEDICARE, OTHER, SELFPAY ==
--- NOTE | 2019-09-23 | DI.MRI.S_ITS ---
PROCEDURE: MR KNEE LT WO CON INDICATIONS: Unilateral primary osteoarthritis, left knee TECHNIQUE: Noncontrast sagittal PD fast spin echo and T2 fast spin echo with fat saturation, sagittal 3-D FLASH with fat saturation; coronal T1 spin echo and PD fast spin echo with fat saturation, and axial PD fast spin echo with fat saturation through the knee. COMPARISON: [facility], CR, XR KNEE ARTHRITIC SERIES LT, 03/11/2019, 10:20. FINDINGS: Image quality: Excellent. Menisci: Ill-defined macerated tear of the medial meniscal body is seen. There is marked truncation of the free margin. Lateral meniscus tear also noted with involvement of the body, anterior and posterior horns. There is abnormal signal extending to the free margin and inferior articular surface, and partial extrusion. Cruciate ligaments: Anterior cruciate ligament appears intact. Posterior cruciate ligament appears intact. Medial structures: The medial collateral ligament appears intact. Semimembranosus tendon appears intact. Visualized portions of the pes anserinus tendons appear normal. No abnormal bursal fluid. Lateral structures: The lateral collateral ligament intact. Biceps femoris tendon appears intact. Popliteus tendon grossly unremarkable. Iliotibial band appears intact. Anterior structures: Quadriceps tendon intact. Medial and lateral patellofemoral ligaments intact. Mild patellar tendinopathy. Ill-defined T2 hyperintensity present within Hoffa's fat pad. There is also prominent curvilinear structure extending from the inferior pole of the patella to the intercondylar notch possibly the cruciate ligaments suggestive of incidental ligamentum mucosum. Bones and cartilage: No focal marrow contusion or discrete low signal fracture line. Within the medial compartment, no focal cartilage defect identified. Within the lateral compartment, diffuse partial thickness loss of the femoral cartilage. There is also surface fraying mild partial thickness loss of the tibial cartilage. Within the patellofemoral compartment, diffuse partial-thickness loss of the patellar and femoral trochlear cartilage with areas of full-thickness involvement at the median patellar ridge Joint space: Small joint effusion. No Messina's cyst. No specific evidence of intra-articular loose body. IMPRESSION: Medial meniscal tear involving the body. Circumferential macerated lateral meniscal tear with partial extrusion as above Osteoarthritis, most pronounced in the lateral and patellofemoral compartments Small joint effusion Hoffa's fat pad T2 hyperintensity/edema, raising the possibility of Hoffa's syndrome. Prominent curvilinear structure within Hoffa's fat pad could represent incidental ligamentum mucosum. Recommend correlation to clinical exam to determine actual significance Dictated by: Colton Souza M.D. on 09/24/2019 at 9:31 Approved by: Colton Souza M.D. on 09/24/2019 at 9:51
== END ==
PROVIDERS: PCP Family Medicine; Referring Provider Orthopaedic Surgery; Visit Provider Orthopaedic Surgery
DX: M17.12 Unilateral primary osteoarthritis, left knee (principal); S83.282A Other tear of lateral meniscus, current injury, left knee, initial encounter; S83.242A Other tear of medial meniscus, current injury, left knee, initial encounter; M25.462 Effusion, left knee
CPT/HCPCS: 73721

== ENCOUNTER → 2019-11-02 15:34 | Outpatient (CLI) | payer MEDICARE, OTHER, SELFPAY ==
[2019-11-03 10:13] LABS: COVID19 Sendout Not Detected (Not Detect)
== END ==
PROVIDERS: PCP Family Medicine; Visit Provider Physician Assistant
DX: Z11.59 Encounter for screening for other viral diseases (principal)
CPT/HCPCS: 87635

== ENCOUNTER 2019-11-05 12:34 | Outpatient (CLI) | payer MEDICARE, OTHER, SELFPAY ==
[2019-11-05] VITALS (9 sets, daily range): BP systolic 133–158; BP diastolic 70–94; PULSE 65–78; RESP 10–17; TEMP 36.4; O2SAT 97–100
--- NOTE | 2019-11-05 12:37 | DI.RAD.S_ITS ---
PROCEDURE: PAIN L INTERLAMINAR/CAUDAL INJ INDICATIONS: SPONDYLOSIS COMPARISON: None. FINDINGS: Fluoroscopic spot filming was performed to verify placement of spinal needles at the L4-L5 level(s), as labeled on the films. Appropriate location(s) of the needle tip(s) was confirmed by injection of iodinated contrast. IMPRESSION: Successful needle tip localization for interlaminar L4-5 injection presumably for steroid administration. Dictated by: Dick Pugh M.D. on 11/05/2019 at 14:05 Approved by: Dick Pugh M.D. on 11/05/2019 at 14:05
[2019-11-05] MEDS: fentaNYL 100 MCG/2 ML INJ 50 MCG IV (13:22)
[2019-11-05] MEDS: MIDAZOLAM 5 MG/5 ML VIAL IV (13:25)
[2019-11-05] MEDS: DEXAMETHASONE 10 MG/ML VIAL 20 MG INJ (13:28)
[2019-11-05] MEDS: BETAMETHASONE 30 MG/5 ML MDV 6 MG INJ (13:28)
[2019-11-05] MEDS: BUPIVACAINE 0.25% (PF) VIAL 2 ML INJ (13:28)
[2019-11-05] MEDS: IOPAMIDOL 15 ML VIAL 3 ML INJ (13:28)
--- NOTE | 2019-11-05 13:40 | P.PCN_ITS ---
Date/Time/Diagnoses Date of procedure: 11/05/19 Time of procedure: 13:40 Pre-procedure diagnosis: 1. HNP WITH RADICULAR FEATURES, 2. MULTILEVEL CENTRAL STENOSIS, Post-procedure diagnosis: same Procedure Notes Procedure: 1. FLUOROSCOPICALLY GUIDED CONTRAST CONTROLLED INTERLAMINAR EPIDURAL STEROID INJECTION -L4/5 Indications: Abby is referred by Dr. Pinto for treatment of Bilateral Foraminal Stenosis R>L LE symptoms. Physician: Paul Knight Total Fluoroscopy time (seconds): 7 Total sedation minutes: 12 Complications: none Procedure in detail & Post-procedure care: FINDINGS Multilevel Central Spinal Stenosis with Nerve Root Compression DESCRIPTION OF PROCEDURE Fluoroscopically guided, contrast-controlled L4/5 translaminar epidural steroid injection. Following review of allergy and review of potential side effects and complications, including, but not necessarily limited to, infection, allergic reaction, local tissue breakdown, temporary as well as permanent nerve injury, paralysis, stroke and possible , the patient indicated that the patient understood and agreed to proceed. An informed consent document was signed by the patient, witnessed by a nurse, and placed in the patient's chart. Additionally, other treatment options including modalities, medications, and physical therapy were reviewed with the patient. After review of previous anaesthesic history and IV conscious sedation the patient was deemed safe to proceed with today?s procedure with IV conscious sedation as ASA class II designation. Safety time-out was performed to confirm patient ID, procedure to be performed and site of procedure. IV sedation was accomplished with a combination of 3mg of Versed and 50mcg of Fentanyl was administered by the RN after DO order, titrated to patient comfort during the course of the procedure while the patient remained responsive to all verbal commands In the prone position, following sterile prep and drape of the lumbar region, the L4/5 translaminar space was identified fluoroscopically. The skin was anesthetized via a 25-gauge, 1.5inch needle with 1% lidocaine solution. At this point, a 22-gauge short bevel spinal needle was atraumatically introduced and advanced under fluoroscopic guidance into the region of the L4/5 translaminar space. Depth was confirmed on lateral view. Radiological data, including multiple fluoroscopic views of the lumbar spine, reveal a spinal needle at the L4/5 translaminar space. Lateral views then show placement of the needle in the epidural space. Subsequent views show contrast material flowing superiorly and inferiorly in the epidural space. No vascular or intrathecal uptake is observed. At this point, using loss of resistance technique with saline and air, the epidural space was entered. This was confirmed following negative aspiration with injection of approximately 1.5cc of Isovue 200, showing excellent epidural flow without vascular or intrathecal uptake. At this point, 1cc of 1% lidocaine solution combined with 3cc or 20mg of dexamethasone and 6mg betamethasone was injected without incident. The patient tolerated the procedure well without signs or symptoms of complic ations prior to transfer to the recovery area continued monitoring without incident. The patient was then transferred to the recovery area where they were observed for an appropriate period of time after the injection. The patient reported a VAS score of 6 prior to the procedure and a post- procedure VAS of 0. POST OP INSTRUCTIONS The patient was provided a Pain Log to continue to record their response to the target-specific procedure prior to follow-up visit with their referring physician. Additionally, specific post-injection care instructions and a contact number to our office were provided if concerns arise regarding possible complications associated with the procedure are suspected.
== END 2019-11-05 14:00 | disposition home or self-care (01) ==
LOC: RAD 12:37
PROVIDERS: PCP Family Medicine; Referring Provider Physical Medicine & Rehabilitation; Visit Provider Physical Medicine & Rehabilitation
DX: M51.16 Intervertebral disc disorders with radiculopathy, lumbar region (principal); M48.061 Spinal stenosis, lumbar region without neurogenic claudication
CPT/HCPCS: 62323; 99152; J0702; J1100; J2250; J3010

== ENCOUNTER → 2019-11-28 14:48 | Outpatient (CLI) | payer MEDICARE, OTHER, SELFPAY ==
--- NOTE | 2019-11-28 | DI.MG.S_ITS ---
BILATERAL DIGITAL SCREENING MAMMOGRAM 3D/2D WITH CAD: 11/28/2019 CLINICAL: Routine screening. Comparison is made to exams dated: 11/26/2018 mammogram, 04/26/2017 mammogram - [facility], 03/14/2015 mammogram - [facility], and 02/15/2014 mammogram - [facility]. The tissue of both breasts is heterogeneously dense. This may lower the sensitivity of mammography. Current study was also evaluated with a Computer Aided Detection (CAD) system. Focal asymmetry in the right breast at the 12 o'clock posterior depth is less prominent. No prior ultrasound correlate. Finding first evaluated on 03/19/2018. Asymmetry in the right retroareolar breast is less prominent. No prior ultrasound correlate. Finding first evaluated on 03/19/2018. No significant masses, calcifications, or other findings are seen in either breast. Prior breast reduction. IMPRESSION: INCOMPLETE: NEEDS ADDITIONAL IMAGING EVALUATION Diagnostic mammogram was previously recommended on 11/26/2018. Patient requested screening mammogram which was preformed. 1) Focal asymmetry in the right breast at the 12 o'clock posterior depth is less prominent. This may represent overlapping fibroglandular tissue. -Additional views are recommended as before. Finding would demonstrate 2 year stability in March 2020. 2) Asymmetry in the right retroareolar breast is less prominent. This may represent overlapping fibroglandular tissue. -Additional views are recommended as before. Finding would demonstrate 2 year stability in March 2020. 3) No new mammographic findings. Patient should technically come back for additional views to complete diagnostic mammogram. Alternatively, if the patient does not want to complete diagnostic mammogram, the patient can return in approximately 6 months for diagnostic mammogram given the low suspicion for the prior mammographic findings and previously demonstrated 18 months stability. Situation was explained to the medical receptionist in Dr. Idania Pinto's office by Dr. Torres. This exam was interpreted at Station ID: [id number]. NOTE: For mammograms, a report in lay terms will be sent to the patient. Approximately 15% of breast malignancies will not be visualized mammographically. In the management of a palpable breast mass, a negative mammogram must not discourage biopsy of a clinically suspicious lesion. Electronically Signed By: Dean Torres M.D. [facility] [place]:11/30/2019 10:29:25 copy to: MARA P. MELI letter sent: Additional Imaging Needed ACR BI-RADS Category 0: Incomplete 8110F
== END ==
PROVIDERS: Family Provider Family Medicine; PCP Family Medicine; Referring Provider Family Medicine; Visit Provider Family Medicine
DX: Z12.31 Encounter for screening mammogram for malignant neoplasm of breast (principal)
CPT/HCPCS: 77063; 77067

== ENCOUNTER → 2019-12-07 15:12 | Outpatient (CLI) | payer MEDICARE, OTHER, SELFPAY ==
--- NOTE | 2019-12-07 15:14 | DI.MG.S_ITS ---
UNILATERAL RIGHT DIGITAL DIAGNOSTIC MAMMOGRAM 3D/2D WITH ADDITIONAL VIEWS: 12/07/2019 CLINICAL: Additional evaluation requested from prior study. Comparison is made to exams dated: 11/28/2019 mammogram, 11/26/2018 mammogram, 03/19/2018 ultrasound, 03/19/2018 mammogram, and 04/26/2017 mammogram - [facility]. The tissue of right breast is heterogeneously dense. This may lower the sensitivity of mammography. No significant masses, calcifications, or other findings are seen in the breast. IMPRESSION: BENIGN The asymmetries on the previous mammogram likely represent superimposed breast tissue and are benign. There is no mammographic evidence of malignancy. A 1 year screening mammogram is recommended. This exam was interpreted at Station ID: [id number]. NOTE: For mammograms, a report in lay terms will be sent to the patient. Approximately 15% of breast malignancies will not be visualized mammographically. In the management of a palpable breast mass, a negative mammogram must not discourage biopsy of a clinically suspicious lesion. Electronically Signed By: Rosa Rasmussen M.D. lk/:12/07/2019 15:39:58 copy to: MARA GARRISON letter sent: Normal Exam ACR BI-RADS Category 2: Benign Finding(s) [id number]
== END ==
PROVIDERS: Family Provider Family Medicine; PCP Family Medicine; Referring Provider Family Medicine; Visit Provider Family Medicine
DX: R92.8 Other abnormal and inconclusive findings on diagnostic imaging of breast (principal); N64.89 Other specified disorders of breast
CPT/HCPCS: 77065; G0279

== ENCOUNTER → 2020-01-15 15:10 | Outpatient (CLI) | payer MEDICARE, OTHER, SELFPAY ==
--- NOTE | 2020-01-15 15:11 | DI.RAD.S_ITS ---
PROCEDURE: XR LUMBAR SPINE MIN 4V INDICATIONS: update imaging TECHNIQUE: 5 views of the lumbar spine were acquired. COMPARISON: [facility], , XR LUMBAR SPINE MIN 4V, 09/30/2018, 12:04. FINDINGS: Bones: No fracture. Severe levoscoliosis. Multilevel degenerative endplate sclerosis and spurring. Diffuse facet arthropathy. Moderate narrowing of the T12-L1, L4-L5 and L5-S1 disc spaces. There is severe narrowing of the remaining lumbar disc spaces. Moderate bilateral hip joint degeneration. Soft tissues: Overlying bowel gas pattern is normal. No suspicious soft tissue calcifications. Oblique images: No pars defects. IMPRESSION: Severe levoscoliosis slightly progressed since the prior study. Severe lumbar spondylosis and facet arthropathy, grossly unchanged. Dictated by: Colton Souza M.D. on 01/15/2020 at 16:41 Approved by: Colton Souza M.D. on 01/15/2020 at 16:43
== END ==
PROVIDERS: Family Provider Family Medicine; PCP Family Medicine; Referring Provider Physical Medicine & Rehabilitation; Visit Provider Physical Medicine & Rehabilitation
DX: M47.27 Other spondylosis with radiculopathy, lumbosacral region (principal); M51.26 Other intervertebral disc displacement, lumbar region; M41.80 Other forms of scoliosis, site unspecified
CPT/HCPCS: 72110

== ENCOUNTER → 2020-01-26 11:28 | Outpatient (CLI) | payer MEDICARE, OTHER, SELFPAY ==
[2020-01-26 12:43] LABS: Add Manual Diff / Slide Review NO; Basophils Absolute Auto 0 /uL (0-100); Basophils Percent Auto 0.5 % (0-2); Eosinophils Absolute Auto 100 /uL (0-450); Eosinophils Percent Auto 1.6 % (2-4); Hematocrit 43.5 % (36-46); Hemoglobin 14.8 g/dL (12.0-16.0); Lymphocytes Absolute Auto 1400 /uL (1100-4500); Lymphocytes Percent Auto 26.5 % (25-40); Mean Corpuscular HGB Conc 34.1 % (30-36); Mean Corpuscular Hemoglobin 31.1 PG (26-34); Mean Corpuscular Volume 91.5 fL (80-100); Monocytes Absolute Auto 500 /uL (0-900); Monocytes Percent Auto 9.1 % (3-14); Neutrophils Absolute Auto 3200 /uL (1500-7000); Neutrophils Percent Auto 62.3 % (50-75); Platelet Count 258 X10^3/uL (150-400); Red Blood Cell Count 4.76 X10^6/uL (4.0-5.2); Red Cell Distribution Width 12.7 % (11.6-14.8); White Blood Cell Count 5.1 X10^3/uL (4.5-11.0)
[2020-01-26 13:33] LABS: Free T3, Triiodothyronine Free 7.87 pg/mL (2.77-5.27); Free T4, Direct Thyroxine 0.75 ng/dL (0.78-2.19)
[2020-01-26 13:46] LABS: TSH w/ Reflex to FT4 0.09 uIU/mL (0.47-4.68)
== END ==
PROVIDERS: Family Provider Family Medicine; PCP Family Medicine; Referring Provider Family Medicine; Visit Provider Family Medicine
DX: E03.9 Hypothyroidism, unspecified (principal); R59.1 Generalized enlarged lymph nodes
CPT/HCPCS: 36415; 84439; 84443; 84481; 85025

== ENCOUNTER → 2020-02-02 10:16 | Outpatient (CLI) | payer MEDICARE, OTHER, SELFPAY ==
[2020-02-02 11:31] LABS: COVID19 -Nasal RAPID Negative (Negative)
== END ==
PROVIDERS: Family Provider Family Medicine; PCP Family Medicine; Visit Provider Physical Medicine & Rehabilitation
DX: Z01.812 Encounter for preprocedural laboratory examination (principal); Z11.59 Encounter for screening for other viral diseases
CPT/HCPCS: 87635; C9803

== ENCOUNTER 2020-02-04 12:37 | Outpatient (CLI) | payer MEDICARE, OTHER, SELFPAY ==
[2020-02-04] VITALS (11 sets, daily range): BP systolic 113–165; BP diastolic 73–87; PULSE 69–87; RESP 12–21; TEMP 36.2; O2SAT 95–100
--- NOTE | 2020-02-04 12:38 | DI.RAD.S_ITS ---
PROCEDURE: PAIN L/SI FACET INJ/BLK 1STL INDICATIONS: BILATERAL L4/5, L5/S1 PSEUDOARTHROSIS INJECTION COMPARISON: None. FINDINGS: Fluoroscopic spot filming was performed to verify placement of spinal needles at the right L4-5 and L5-S1 level(s), as labeled on the films. Appropriate location(s) of the needle tip(s) was confirmed by injection of iodinated contrast. IMPRESSION: Successful needle tip localization on the right at the L4-5 and L5-S1 neural foramen levels. Dictated by: Dick Pugh M.D. on 02/04/2020 at 14:07 Approved by: Dick Pugh M.D. on 02/04/2020 at 14:08
[2020-02-04] MEDS: MIDAZOLAM 5 MG/5 ML VIAL IV (13:26)
[2020-02-04] MEDS: fentaNYL 100 MCG/2 ML INJ 50 MCG IV (13:26)
[2020-02-04] MEDS: IOPAMIDOL 15 ML VIAL 3 ML INJ (13:32)
[2020-02-04] MEDS: BETAMETHASONE 30 MG/5 ML MDV 12 MG INJ (13:32)
[2020-02-04] MEDS: BUPIVACAINE 0.5% (PF) VIAL 5 ML INJ (13:32)
[2020-02-04] MEDS: LIDOCAINE 1% 20 ML 10 ML INJ (13:32)
--- NOTE | 2020-02-04 13:50 | P.PCN_ITS ---
Date/Time/Diagnoses Date of procedure: 02/04/20 Time of procedure: 13:50 Pre-procedure diagnosis: 1. FACET ARTHROPATHY 2. AXIAL LBP 3. MULTILEVEL DDD Post-procedure diagnosis: same Procedure Notes Procedure: 1. FLUOROSCOPICALLY GUIDED CONTRAST CONTROLLED FACET JOINT INJECTIONS BILATERAL L4/5, L5/S1 and Left L5/S1 Pseudoarthrosis Indications: Abby is referred by Dr. Louis for treatment of Axial LBP Physician: Paul Knight Total Fluoroscopy time (seconds): 22 Total sedation minutes: 22 Complications: none Procedure in detail & Post-procedure care: FINDINGS Multilevel Facet Arthropathy with Clinically significant axial LBP DESCRIPTION OF PROCEDURE Fluoroscopically guided, contrast-controlled bilateral L4/5, L5/S1 facet joint and left L5/S1 pseudoarthosis injections. Following review of allergy and review of potential side effects and complications, including, but not necessarily limited to, infection, allergic reaction, local tissue breakdown, stroke, temporary or permanent nerve injury, paralysis, and possible , the patient indicated that the patient understood and agreed to proceed. An informed consent document was signed by the patient, witnessed by a nurse, and placed in the patient's chart. Additionally, other treatment options including medications, modalities, and physical therapy were reviewed with the patient. After review of previous anaesthesic history and IV conscious sedation the patient was deemed safe to proceed with today?s procedure with IV conscious sedation as ASA class II designation. Safety time-out was performed to confirm patient ID, procedure to be performed and site of procedure. IV sedation was accomplished with a combination of 2mg of Versed and 50mcg of Fentanyl was administered by the RN after DO order, titrated to patient comfort during the course of the procedure while the patient remained responsive to all verbal commands In the prone position, following sterile prep and drape of the lumbar region, th e posterior aspect of the L4/5, L5/S1 facet joints were identified fluoroscopically. The skin was anesthetized via a 25-gauge 1.5inch needle with 1% lidocaine solution into the corresponding facet joints. At this point, a 22- gauge 3.5-inch spinal needle was atraumatically introduced and advanced under fluoroscopic guidance into the corresponding facet joints. Following negative aspiration, injections of approximately 0.2cc of Isovue 200 confirmed interarticular placement without vascular uptake. The identical procedure was then performed at the L4/5, L5/S1 facet joints on the left as well as the left L5/S1 pseudoarthrosis. Radiological data, including multiple fluoroscopic views of the lumbosacral spine, reveal a spinal needle at the L4/5, L5/S1 facet joints bilaterally and left L5/S1 pseudoarthrosis. Subsequent views show flow of contrast material both superiorly and inferiorly within the joint space without vascular or intrathecal uptake. At this point, a total of 0.5cc including a mixture of 0.25cc Marcaine and 0.25cc betamethasone was injected without complication into each of the corresponding facet joints. The patient tolerated the procedure well without signs or symptoms of complications prior to transfer to the recovery area continued monitoring without incident. The patient was then transferred to the recovery area where they were observed for an appropriate period of time after the injection. The patient reported a VAS score of 7 prior to the procedure and a post- procedure VAS of 0. POST OP INSTRUCTIONS The patient was provided a Pain Log to continue to record their response to the target-specific procedure prior to follow-up visit with their referring physician. Additionally, specific post-injection care instructions and a contact number to our office were provided if concerns arise regarding possible complications associated with the procedure are suspected.
== END 2020-02-04 14:24 | disposition home or self-care (01) ==
LOC: RAD 12:38
PROVIDERS: Family Provider Family Medicine; PCP Family Medicine; Referring Provider Family Medicine; Visit Provider Physical Medicine & Rehabilitation
DX: M47.816 Spondylosis without myelopathy or radiculopathy, lumbar region (principal); M47.817 Spondylosis without myelopathy or radiculopathy, lumbosacral region; M54.5 Low back pain; M51.36 Other intervertebral disc degeneration, lumbar region; M51.37 Other intervertebral disc degeneration, lumbosacral region
CPT/HCPCS: 64493; 64494; 99152; J0702; J2250; J3010

== ENCOUNTER → 2020-04-11 13:13 | Outpatient (CLI) | payer MEDICARE, OTHER, SELFPAY ==
[2020-04-11 15:38] LABS: COVID19 -Nasal RAPID Negative (Negative)
== END ==
PROVIDERS: Family Provider Family Medicine; PCP Family Medicine; Visit Provider Physical Medicine & Rehabilitation
DX: Z20.822 Contact with and (suspected) exposure to COVID-19 (principal)
CPT/HCPCS: 87635; C9803

== ENCOUNTER 2020-04-12 10:40 | Outpatient (CLI) | payer MEDICARE, OTHER, SELFPAY ==
[2020-04-12] VITALS (13 sets, daily range): BP systolic 111–139; BP diastolic 65–86; PULSE 60–88; RESP 10–18; TEMP 36.8; O2SAT 97–100
--- NOTE | 2020-04-12 10:43 | DI.RAD.S_ITS ---
PROCEDURE: PAIN L/S MED/LAT N RFA BILAT INDICATIONS: SPONDYLOSIS COMPARISON: [facility], , PAIN L/S MED/LAT N RFA BILAT, 07/28/2019, 10:34. FINDINGS: Fluoroscopic spot filming was performed to verify placement of spinal needles at the L4, L5, and S1 levels on both sides, as labeled on the films. IMPRESSION: Intraprocedural examination within normal limits. Dictated by: Jd Austin M.D. on 04/12/2020 at 12:35 Approved by: Jd Austin M.D. on 04/12/2020 at 12:40
[2020-04-12] MEDS: fentaNYL 100 MCG/2 ML INJ 50 MCG IV (11:42)
[2020-04-12] MEDS: LIDOCAINE 1% 20 ML INJ (11:46)
[2020-04-12] MEDS: BUPIVACAINE 0.5% (PF) VIAL 5 ML INJ (11:46)
[2020-04-12] MEDS: MIDAZOLAM 5 MG/5 ML VIAL IV (11:51)
--- NOTE | 2020-04-12 12:26 | P.PCN_ITS ---
Date/Time/Diagnoses Date of procedure: 04/12/20 Time of procedure: 12:26 Pre-procedure diagnosis: 1. RECALCITRANT FACET ARTHROPATHY Post-procedure diagnosis: same Procedure Notes Procedure: 1. BILATERAL L4 AND L5 MEDIAL BRANCH RADIOFREQUENCY NEUROTOMY AND S1 DORSAL RAMUS BRANCH RADIOFREQUENCY NEUROTOMY Indications: Abby is referred by Dr. Louis for treatment of facet arthropathy. Physician: Paul Knight Total Fluoroscopy time (seconds): 24 Total sedation minutes: 36 Complications: none Procedure in detail & Post-procedure care: DESCRIPTION OF PROCEDURE Bilateral L4 and L5 medial branch radiofrequency neurotomy and bilateral S1 dorsal ramus radiofrequency neurotomy under fluoroscopy with conscious sedation. The patient is well known to this clinic having undergone previous facet injections with good but temporary relief. The patient has experienced appropriate, concordant relief with previous facet and median branch blocks but the patient's pain has been recalcitrant to further conservative measures. Therefore, based upon the patient's relief and persistent symptoms, the patient is considered an appropriate candidate for facet rhizotomy. All of the patient's questions regarding the risks versus benefits of the procedure, including, but not limited to, bleeding, infection, temporary as well as lasting nerve injury, paralysis, stroke, and , as well treatment alternatives were answered to satisfaction. After obtaining informed consent, denial of pertinent drug allergies, as well as being made aware of the potential risks of bleeding, infection, spinal cord trauma, paralysis, temporary and permanent nerve damage, seizure, stroke, and possible , the patient was brought to the fluoroscopy suite and positioned prone on the fluoroscopy table. The lumbar region was prepped with chlorhexadine and covered with a fenestrated drape in the usual sterile fashion. Appropriate monitors applied including pulse oximeter, pulse, and blood pressure for regular monitoring throughout the procedure. After review of previous anaesthesic history and IV conscious sedation the patient was deemed safe to proceed with today's procedure with IV conscious sedation as ASA class II designation. Safety time-out was performed to confirm patient ID, procedure to be performed and site of procedure. IV sedation was accomplished with a combination of 4mg of Versed and 50mcg of Fentanyl administered by the RN after DO order, titrated to patient comfort during the course of the procedure while the patient remained responsive to all verbal commands. After local infiltration using 1% lidocaine, under fluoroscopic guidance, a 10- cm RF insulated needle with a 10-mm active tip was positioned parallel to the junction of the right sacral ala and the superior articulating process where the S1 dorsal ramus resides. Needle placement was confirmed with motor stimulation of .5v on the right which produced local stimulation without radicular component. The stimulation was then increased to 2v with, once again, only local multifidus stimulation without radicular component. The needle was then removed and the identical procedure was performed along the length of the right L5 medial branch with motor stimulation at .7v on the right. The identical procedure was once again performed along the length of the right L4 medial branch with motor stimulation of .5v on the right. The medial branches were then anesthetised with 0.5% Marcaine. This was then followed by two discreet lesions performed at 80 degrees Celsius for 90 seconds each. The identical procedure was repeated on the left. The patient tolerated the procedure well without signs or symptoms of complications prior to transfer to the recovery area continued monitoring without incident. The patient was then transferred to the recovery area where they were observed for an appropriate period of time after the injection. The patient reported a VAS score of 9 prior to the procedure and a post-procedure VAS of 0. POST OP INSTRUCTIONS The patient was provided a Pain Log to continue to record the patient's response to the target-specific procedure prior to the patient's follow-up visit with the referring physician. Additionally, specific post-injection care instructions and a contact number to our office were provided if concerns arise regarding possible complications associated with the procedure are suspected.
== END 2020-04-12 12:57 | disposition home or self-care (01) ==
LOC: RAD 10:42
PROVIDERS: Family Provider Family Medicine; PCP Family Medicine; Referring Provider Physical Medicine & Rehabilitation; Visit Provider Physical Medicine & Rehabilitation
DX: M47.816 Spondylosis without myelopathy or radiculopathy, lumbar region (principal); M47.817 Spondylosis without myelopathy or radiculopathy, lumbosacral region
CPT/HCPCS: 64635; 64636; 99152; 99153; J2250; J3010

== ENCOUNTER → 2020-05-10 11:55 | Outpatient (CLI) | payer MEDICARE, OTHER, SELFPAY ==
[2020-05-10 13:10] LABS: C-Reactive Protein Quant 0.5 mg/dL (<1.0); Cholesterol 239 mg/dL (140-199); HDL Cholesterol 78 mg/dL (40-60); LDL Cholesterol Calculated 149 mg/dL (<100); Triglycerides 62 mg/dL (35-150)
[2020-05-10 13:47] LABS: TSH w/ Reflex to FT4 0.49 uIU/mL (0.47-4.68)
[2020-05-10 16:14] LABS: Estradiol, Total 26.7 pg/mL
[2020-05-14 15:08] LABS: Percent Free Testosterone 1.22 % (0.50-2.80); Testosterone Free 0.15 ng/dL (0.10-0.85); Testosterone Total 12.4 ng/dL (7.0-40.0)
[2020-05-15 15:22] LABS: Estrogen 51 pg/mL (.)
[2020-05-18 17:33] LABS: % Free Progesterone 2.4 % (.); Progesterone, Serum 25 ng/dL (.)
== END ==
PROVIDERS: Family Provider Family Medicine; PCP Family Medicine; Referring Provider Family Medicine; Visit Provider Family Medicine
DX: M81.0 Age-related osteoporosis without current pathological fracture (principal); Z78.0 Asymptomatic menopausal state; E03.9 Hypothyroidism, unspecified; Z13.220 Encounter for screening for lipoid disorders; M54.40 Lumbago with sciatica, unspecified side; G89.29 Other chronic pain
CPT/HCPCS: 36415; 77080; 80061; 82670; 82672; 84144; 84402; 84403; 84443; 84999; 86140

== ENCOUNTER 2020-06-23 16:00 | Outpatient (RCR) | payer MEDICARE, OTHER, SELFPAY ==
--- NOTE | 2020-01-10 13:39 | PT.OIE ---
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) Cataract (lens) fragments in eye following cataract surgery, right eye (Acute) Chronic back pain (Chronic 1998) Colon polyps (Resolved 1995) Degenerative joint disease of both hips (Acute) Depression (Resolved 2007) GERD (gastroesophageal reflux disease) (Resolved 1995) Hearing loss (Chronic 2009) Herniated nucleus pulposus, L4-5 (Acute) Hypothyroidism (Resolved 2011) 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 (Acute) Lumbosacral spondylosis with radiculopathy (Acute) Measles (Resolved 1957) Osteoporosis (Acute) Scarlet fever (Resolved 1955) Scoliosis (Chronic 1948) Past Surgical History (Last Reviewed 09/14/19 @ 12:42 by Paul Knight DO) Anesthesia (Resolved) Finger joint replacement of left hand (Resolved 2011) History of lung surgery (Resolved 06/2009) History of meniscectomy of left knee (Resolved 06/18/16) Visit Care Team Role Provider Type Andre Louis MD Primary Care Provider Physician Specialty: Family Practice Address: [address] [place] [address] Email: [email or web address] Idania Pinto MD Family Provider Physician Other Providers Specialty: Family Practice Address: [address] [place] [address], [facility] Email: [email or web address] Attending Provider Referring Provider Specialty: Address: Phone: Fax: Email: Physical Therapy Initial Evaluation PT-OP-A Visit Information Start: 01/05/20 08:58 Freq: Status: Active Protocol: Document 01/05/20 18:06 [facility] (Rec: 01/05/20 18:07 [facility] [id number]) Out-Patient Physical Therapy Visit Information Visit Information Visit Type Initial Evaluation Visit Start Time 11:15 Visit Stop Time 12:00 Total Visit Minutes 45 Visit Number 1 Evaluation Information Evaluation Date 01/05/20 PT-OP-B Current Condition Start: 01/05/20 08:58 Freq: Status: Active Protocol: Document 01/05/20 13:08 [facility] (Rec: 01/10/20 13:25 [facility] [email or web address]) Current Condition History of Current Condition Onset Date 5 years Current Complaints dyspareunia History of Current Condition Abby is a 69 year old female who is here with c/o dyspareunia. Abby reports she hasn't been able to have intercourse since her pain began 5 years ago. She has been using a dialator called a ngoc vaginal dilator in which she pumps it up to tolerance. Abby notes she does not like to use the dilator and she doesn't feel she is making progress. She is referred to PT to help stretch her tissue and decrease tightness prior to trying a laser treatment in February. Past medical history includes history of lumbar pain and L2-3 and 4 medial branch rhizotomy 2019, bronchiolo-alveolar carcinoma, scoliosis, osteoporosis, DJD both hips, left meniscal tear. Abby has been seen in PT previously . Treatment included manual therapy techniques to decrease tightnesss in the pelvic floor and introitus, stretches for pelvic pain, vaginal dilator instructions. She is using a estriol cream. Treatment Goals Patient/Caregiver Goals Abby's goals include decreasing tightness in her pelvic floor to be able to have intercourse with her PT-OP-C Subjective Start: 01/05/20 08:58 Freq: Status: Active Protocol: Document 01/05/20 13:08 [facility] (Rec: 01/10/20 13:25 [facility] [email or web address]) OP-PT Pain Assessment Pain Assessment Grid Paper Pain Assessment Grid Completed Yes Location pelvic floor Pain Location Details pelvic floor introitus Intensity 9 Scale Used Numeric (0 - 10) PT-OP-I Pelvic Floor Start: 01/05/20 08:58 Freq: Status: Active Protocol: Document 01/05/20 13:08 [facility] (Rec: 01/10/20 13:25 [facility] [email or web address]) Pelvic Floor Assessment Urine Pelvic Floor Surgery No Pelvic Clock Pelvic Clock 12-3 Guarding Pelvic Clock 3-6 Guarding Pelvic Clock 6-9 Guarding Pelvic Clock 9-12 Atrophy Pelvic Clock Other pain with pelvic floor examination in the introitus, muscle guarding and tightness in the lateral teixeira of the levator ani Prolapse Uterine Prolapse Grade 2 Comments Pelvic Floor Comments Tightness noted at the introital opening and guarding of the lateral teixeira of the levator ani PT-OP-J Posture/Palpation/Skin Start: 01/05/20 08:58 Freq: Status: Active Protocol: Document 01/05/20 13:08 [facility] (Rec: 01/10/20 13:25 [facility] [email or web address]) Palpation Assessment Location adductors B Palpation Location adductors bilaterally Palpation Findings Soft Tissue Tightness,Muscle Guarding PT-OP-Q Treatments Start: 01/05/20 08:58 Freq: Status: Active Protocol: Document 01/05/20 13:08 [facility] (Rec: 01/10/20 13:25 [facility] [email or web address]) Therapeutic Exercises Supine Exercises adductor stretch with strap Supine Exercise Name adductor stretch with strap Other Exercises happy baby Other Exercise Name happy baby stretch Manual Therapy Treatment Soft Tissue Mobilization manual release of the levator ani Body Location levator ani Mobilization Type Myofascial Release Comments Cross body MFR of the levator ani PT-OP-T Assessment and Plan Start: 01/05/20 08:58 Freq: Status: Active Protocol: Document 01/05/20 13:25 [facility] (Rec: 01/10/20 13:38 [facility] [email or web address]) Physical Therapy Assessment Rehab Potential Rehabilitation Potential Good Evaluation Complexity Number of Personal Factors/Comorbidities 0 Number of Body Systems Impaired 1-2 Clinical Presentation at Evaluation Stable Impairments Impairments Activity Tolerance,Pain,Soft Tissue Mobility,Tone Goals adductor tightness B Impairment Adductor tightness bilaterally Short Term Goal (STG) Abby is given a home exercise program for her adductors and levator ani to improve muscle flexiblity and decrease pain STG Duration 4 weeks Tightness of the levator ani Impairment tightness of the levator ani B Prison Goal (LTG) With manual therapy techniques we are able to relax the lateral teixeira of the levator ani and reduce pelvic floor tightness and pain. Abby is able to demonstrate resting tone at 0 on EMG biofeedback LTG Duration 8 weeks pain with intercourse Impairment c/o dyspareunia and unable to have intercourse with her Sewage Reticulation Drafting Officer Goal (LTG) [place] manual therapy techniques, dilator use, stretches, and laser treatment Abby is able to resume intercourse with her LTG Duration 8 weeks Assessment Summary Assessment Abby is a 69 year old female who presents to Physical therapytoday with chief complaints of dyspareunia. She has been seen in our clinic before for relaxation of her pelvic floor muscles and she has a dilator at home. She has been experiencing her pain for 5 years and previous PT did not help with reducing pain with intercourse . At this time she is awaiting a laser treatment in her vaginal wall to improve circulation and decrease pain. SHe is being referred to PT for 12 weeks for pelvic floor relaxation. Abby is using a ngoc dilator that inflates to help stretch her vaginal wall . She reports she does not like using the dilator but is trying to use it a few times per week. With examination today Abby is tight at the introitus. She has guarding of the levator ani on the lateral teixeira. She is also tight and guarded in the adductor musculature B. Past medical history includes leftward curvature of the upper lumbar spine, multilevel DDD and facet disease, mild multi level foraminal stenosis , increased left lateral recess stenosis of L4-5 associated weith left nerve root compression. She has undergone a L2-3 and 4 medial branch rhizotomy. I reviewed dilator instructions to and educated Abby in stretches for her adductors and pelvic floor. Manual therapy/MFR was initiated for the levator ani and Abby tolerated this well. She is a good candidate for PT. Physical Therapy Plan Frequency and Duration Frequency of Treatment 1x/Week Duration of Treatment 12 Plan of Care Start Date 01/05/20 Plan of Care End Date 03/29/20 Therapeutic Interventions Therapeutic Interventions Home Exercise Program,Manual Therapy,Neuromuscular Re- education,Patient/Caregiver Education,Self-Care/Home Management,Soft Tissue Mobilization,Therapeutic Exercises Modalities Biofeedback Next Visit Focus/Plan Next Note Type Treatment Note Next Visit Plan review stretches for pelvic pain, manual therapy techniques to reduce tightness of the levator ani, gentle contract and relax exercises for the pelvic floor.
--- NOTE | 2020-01-10 13:40 | PT.OPPOC ---
Physical, Occupational & Speech Therapy At [facility] Current Diagnoses Unspecified dyspareunia (01/05/20) Visit Care Team Role Provider Type Andre Louis MD Primary Care Provider Physician Specialty: Family Practice Address: [address] [place] [address] Email: [email or web address] Idania Pinto MD Family Provider Physician Other Providers Specialty: Family Practice Address: [address] [place] [address], [id number] Email: [email or web address] Attending Provider Referring Provider Specialty: Address: Phone: Fax: Email: Plan Of Care PT-OP-T Assessment and Plan Start: 01/05/20 08:58 Freq: Status: Active Protocol: Document 01/05/20 13:25 [facility] (Rec: 01/10/20 13:38 [facility] [email or web address]) Physical Therapy Assessment Rehab Potential Rehabilitation Potential Good Evaluation Complexity Number of Personal Factors/Comorbidities 0 Number of Body Systems Impaired 1-2 Clinical Presentation at Evaluation Stable Impairments Impairments Activity Tolerance,Pain,Soft Tissue Mobility,Tone Goals adductor tightness B Impairment Adductor tightness bilaterally Short Term Goal (STG) Abby is given a home exercise program for her adductors and levator ani to improve muscle flexibility and decrease pain STG Duration 4 weeks Tightness of the levator ani Impairment tightness of the levator ani B Bioinformatics Programmer Goal (LTG) With manual therapy techniques we are able to relax the lateral teixeira of the levator ani and reduce pelvic floor tightness and pain. Abby is able to demonstrate resting tone at 0 on EMG biofeedback LTG Duration 8 weeks pain with intercourse Impairment c/o dyspareunia and unable to have intercourse with her Bioinformatics Programmer Goal (LTG) With manual therapy techniques, dilator use, stretches, and laser treatment Abby is able to resume intercourse with her LTG Duration 8 weeks Assessment Summary Assessment Abby is a 69 year old female who presents to Physical therapy today with chief complaints of dyspareunia. She has been seen in our clinic before for relaxation of her pelvic floor muscles and she has a dilator at home. She has been experiencing her pain for 5 years and previous PT did not help with reducing pain with intercourse . At this time she is awaiting a laser treatment in her vaginal wall to improve circulation and decrease pain. She is being referred to PT for 12 weeks for pelvic floor relaxation. Abby is using a ngoc dilator that inflates to help stretch her vaginal wall . She reports she does not like using the dilator but is trying to use it a few times per week. With examination today Abby is tight at the introitus. She has guarding of the levator ani on the lateral teixeira. She is also tight and guarded in the adductor musculature B. Past medical history includes leftward curvature of the upper lumbar spine, multilevel DDD and facet disease, mild multi level foraminal stenosis , increased left lateral recess stenosis of L4-5 associated with left nerve root compression. She has undergone a L2-3 and 4 medial branch rhizotomy. I reviewed dilator instructions to and educated Abby in stretches for her adductors and pelvic floor. Manual therapy/MFR was initiated for the levator ani and Abby tolerated this well. She is a good candidate for PT. Physical Therapy Plan Frequency and Duration Frequency of Treatment 1x/Week Duration of Treatment 12 Plan of Care Start Date 01/05/20 Plan of Care End Date 03/29/20 Therapeutic Interventions Therapeutic Interventions Home Exercise Program,Manual Therapy,Neuromuscular Re- education,Patient/Caregiver Education,Self-Care/Home Management,Soft Tissue Mobilization,Therapeutic Exercises Modalities Biofeedback Next Visit Focus/Plan Next Note Type Treatment Note Next Visit Plan review stretches for pelvic pain, manual therapy techniques to reduce tightness of the levator ani, gentle contract and relax exercises for the pelvic floor. Plan of Care Dates Plan of Care Start Date 01/05/20 Plan of Care End Date 03/29/20 Electronically Signed by: Larisa Sepulveda, PT 01/10/20 9730 Please Sign and Return: I have reviewed this Plan of Care and certify that the skilled therapy services above are required to meet the patient?s needs. Physician Signature Date Printed Name and Credentials Clinical Instructor Signature Printed Name and Credentials
--- NOTE | 2020-01-21 11:07 | PT.OTN ---
Current Diagnoses Unspecified dyspareunia (01/19/20) Physical Therapy Treatment Note PT-OP-A Visit Information Start: 01/05/20 08:58 Freq: Status: Active Protocol: Document 01/19/20 11:20 [facility] (Rec: 01/21/20 11:02 [facility] [email or web address]) Out-Patient Physical Therapy Visit Information Visit Information Visit Type Treatment Note Visit Start Time 11:20 Visit Stop Time 12:00 Total Visit Minutes 40 Visit Number 2 PT-OP-B Current Condition Start: 01/05/20 08:58 Freq: Status: Active Protocol: Document 01/05/20 13:08 [facility] (Rec: 01/10/20 13:25 [facility] [email or web address]) Current Condition History of Current Condition Onset Date 5 years Current Complaints dyspareunia History of Current Condition Abby is a 69 year old female who is here with c/o dyspareunia. Abby reports she hasn't been able to have intercourse since her pain began 5 years ago. She has been using a dialator called a ngoc vaginal dilator in which she pumps it up to tolerance. Abby notes she does not like to use the dilator and she doesn't feel she is making progress. She is referred to PT to help stretch her tissue and decrease tightness prior to trying a laser treatment in February. Past medical history includes history of lumbar pain and L2-3 and 4 medial branch rhizotomy 2019, bronchiolo-alveolar carcinoma, scoliosis, osteoporosis, DJD both hips, left meniscal tear. Abby has been seen in PT previously . Treatment included manual therapy techniques to decrease tightnesss in the pelvic floor and introitus, stretches for pelvic pain, vaginal dilator instructions. She is using a estriol cream. Treatment Goals Patient/Caregiver Goals Abby's goals include decreasing tightness in her pelvic floor to be able to have intercourse with her PT-OP-C Subjective Start: 01/05/20 08:58 Freq: Status: Active Protocol: Document 01/19/20 11:20 [facility] (Rec: 01/21/20 11:02 [facility] [email or web address]) OP-PT Subjective Patient Comments Patient Comments Pt reports her dialator that inflates is not working so she hasn't been able to use it. PT-OP-I Pelvic Floor Start: 01/05/20 08:58 Freq: Status: Active Protocol: Document 01/05/20 13:08 [facility] (Rec: 01/10/20 13:25 [facility] [email or web address]) Pelvic Floor Assessment Urine Pelvic Floor Surgery No Pelvic Clock Pelvic Clock 12-3 Guarding Pelvic Clock 3-6 Guarding Pelvic Clock 6-9 Guarding Pelvic Clock 9-12 Atrophy Pelvic Clock Other pain with pelvic floor examination in the introitus, muscle guarding and tightness in the lateral teixeira of the levator ani Prolapse Uterine Prolapse Grade 2 Comments Pelvic Floor Comments Tightness noted at the introital opening and guarding of the lateral teixeira of the levator ani PT-OP-J Posture/Palpation/Skin Start: 01/05/20 08:58 Freq: Status: Active Protocol: Document 01/05/20 13:08 [facility] (Rec: 01/10/20 13:25 [facility] [email or web address]) Palpation Assessment Location adductors B Palpation Location adductors bilaterally Palpation Findings Soft Tissue Tightness,Muscle Guarding PT-OP-Q Treatments Start: 01/05/20 08:58 Freq: Status: Active Protocol: Document 01/19/20 11:20 [facility] (Rec: 01/21/20 11:02 [facility] [email or web address]) Therapeutic Exercises Supine Exercises EMG biofeedback Supine Exercise Name Pelvic floor long holds x 10 reps Side bilateral Reps/Minutes 10 reps x 10 second holds Other Exercises happy baby Other Exercise Name happy baby Side bilateral Manual Therapy Treatment Soft Tissue Mobilization tissue work at the introitus Body Location introutis Mobilization Type Myofascial Release Comments worked on the tissue near the introitus as it appears D Rugated and tight manual release of the levator ani Body Location levator ani left side Mobilization Type Myofascial Release Comments Cross body MFR of the levator ani on the left side of the pelvic clock PT-OP-T Assessment and Plan Start: 01/05/20 08:58 Freq: Status: Active Protocol: Document 01/19/20 11:20 [facility] (Rec: 01/21/20 11:02 [facility] [email or web address]) Physical Therapy Assessment Assessment Summary Assessment Vaginal tissue appears D Rugated and I worked on the introitus with stretching today as well as worked into the left levator ani. We began EMG biofeedback to help with pelvic floor strengthening and improved blood flow. Physical Therapy Plan Frequency and Duration Frequency of Treatment 1x/Week Duration of Treatment 12 Plan of Care Start Date 01/05/20 Plan of Care End Date 03/29/20 Therapeutic Interventions Therapeutic Interventions Home Exercise Program,Manual Therapy,Neuromuscular Re- education,Patient/Caregiver Education,Self-Care/Home Management,Soft Tissue Mobilization,Therapeutic Exercises Modalities Biofeedback Next Visit Focus/Plan Next Note Type Treatment Note Next Visit Plan review stretches for pelvic pain, manual therapy techniques to reduce tightness of the levator ani, gentle contract and relax exercises for the pelvic floor.
--- NOTE | 2020-01-26 13:19 | PT.OTN ---
Current Diagnoses Unspecified dyspareunia (01/26/20) Physical Therapy Treatment Note PT-OP-A Visit Information Start: 01/05/20 08:58 Freq: Status: Active Protocol: Document 01/26/20 10:33 [facility] (Rec: 01/26/20 10:40 [facility] [id number]) Out-Patient Physical Therapy Visit Information Visit Information Visit Type Treatment Note Visit Start Time 10:33 Visit Stop Time 11:15 Total Visit Minutes 42 Visit Number 3 PT-OP-B Current Condition Start: 01/05/20 08:58 Freq: Status: Active Protocol: Document 01/05/20 13:08 [facility] (Rec: 01/10/20 13:25 [facility] [email or web address]) Current Condition History of Current Condition Onset Date 5 years Current Complaints dyspareunia History of Current Condition Abby is a 69 year old female who is here with c/o dyspareunia. Abby reports she hasn't been able to have intercourse since her pain began 5 years ago. She has been using a dialator called a ngoc vaginal dilator in which she pumps it up to tolerance. Abby notes she does not like to use the dilator and she doesn't feel she is making progress. She is referred to PT to help stretch her tissue and decrease tightness prior to trying a laser treatment in February. Past medical history includes history of lumbar pain and L2-3 and 4 medial branch rhizotomy 2019, bronchiolo-alveolar carcinoma, scoliosis, osteoporosis, DJD both hips, left meniscal tear. Abby has been seen in PT previously . Treatment included manual therapy techniques to decrease tightnesss in the pelvic floor and introitus, stretches for pelvic pain, vaginal dilator instructions. She is using a estriol cream. Treatment Goals Patient/Caregiver Goals Abby's goals include decreasing tightness in her pelvic floor to be able to have intercourse with her PT-OP-C Subjective Start: 01/05/20 08:58 Freq: Status: Active Protocol: Document 01/26/20 10:33 [facility] (Rec: 01/26/20 10:40 [facility] [id number]) OP-PT Subjective Patient Comments Patient Comments pt reports the dilator worked well this past week. She was able to use it. PT-OP-I Pelvic Floor Start: 01/05/20 08:58 Freq: Status: Active Protocol: Document 01/05/20 13:08 [facility] (Rec: 01/10/20 13:25 [facility] [email or web address]) Pelvic Floor Assessment Urine Pelvic Floor Surgery No Pelvic Clock Pelvic Clock 12-3 Guarding Pelvic Clock 3-6 Guarding Pelvic Clock 6-9 Guarding Pelvic Clock 9-12 Atrophy Pelvic Clock Other pain with pelvic floor examination in the introitus, muscle guarding and tightness in the lateral teixeira of the levator ani Prolapse Uterine Prolapse Grade 2 Comments Pelvic Floor Comments Tightness noted at the introital opening and guarding of the lateral teixeira of the levator ani PT-OP-J Posture/Palpation/Skin Start: 01/05/20 08:58 Freq: Status: Active Protocol: Document 01/05/20 13:08 [facility] (Rec: 01/10/20 13:25 [facility] [email or web address]) Palpation Assessment Location adductors B Palpation Location adductors bilaterally Palpation Findings Soft Tissue Tightness,Muscle Guarding PT-OP-Q Treatments Start: 01/05/20 08:58 Freq: Status: Active Protocol: Document 01/26/20 13:13 [facility] (Rec: 01/26/20 13:19 [facility] [email or web address]) Therapeutic Exercises Supine Exercises pelvic floor quick contractions Reps/Minutes x 10 reps 2 seconds on 2 seconds off EMG biofeedback Supine Exercise Name Pelvic floor long holds x 10 reps Side bilateral Reps/Minutes 10 reps x 10 second holds Manual Therapy Treatment Soft Tissue Mobilization tissue work at the introitus Body Location introutis Mobilization Type Myofascial Release Comments worked on the tissue near the introitus as it appears D Rugated and tight manual release of the levator ani Body Location levator ani left side Mobilization Type Myofascial Release Comments Cross body MFR of the levator ani on the left side of the pelvic clock PT-OP-T Assessment and Plan Start: 01/05/20 08:58 Freq: Status: Active Protocol: Document 01/26/20 13:13 [facility] (Rec: 01/26/20 13:19 [facility] [email or web address]) Physical Therapy Assessment Assessment Summary Assessment Abby is tolerating tissue work well and has been using her dilator. She has a good resting tone on EMG biofeedback. I worked primarily on the introitus and the left side of the levator ani Physical Therapy Plan Frequency and Duration Frequency of Treatment 1x/Week Duration of Treatment 12 Plan of Care Start Date 01/05/20 Plan of Care End Date 03/29/20 Therapeutic Interventions Therapeutic Interventions Home Exercise Program,Manual Therapy,Neuromuscular Re- education,Patient/Caregiver Education,Self-Care/Home Management,Soft Tissue Mobilization,Therapeutic Exercises Modalities Biofeedback Next Visit Focus/Plan Next Note Type Treatment Note Next Visit Plan continue working on tissue work to allow Abby to move up in size of dilators.
--- NOTE | 2020-02-02 16:44 | PT.OTN ---
Current Diagnoses Unspecified dyspareunia (02/02/20) Physical Therapy Treatment Note PT-OP-A Visit Information Start: 01/05/20 08:58 Freq: Status: Active Protocol: Document 02/02/20 11:23 [facility] (Rec: 02/02/20 11:26 [facility] [id number]) Out-Patient Physical Therapy Visit Information Visit Information Visit Type Re-Evaluation Visit Start Time 11:22 Visit Stop Time 12:00 Total Visit Minutes 38 Visit Number 4 PT-OP-B Current Condition Start: 01/05/20 08:58 Freq: Status: Active Protocol: Document 01/05/20 13:08 [facility] (Rec: 01/10/20 13:25 [facility] [id number]) Current Condition History of Current Condition Onset Date 5 years Current Complaints dyspareunia History of Current Condition Abby is a 69 year old female who is here with c/o dyspareunia. Abby reports she hasn't been able to have intercourse since her pain began 5 years ago. She has been using a dialator called a ngoc vaginal dilator in which she pumps it up to tolerance. Abby notes she does not like to use the dilator and she doesn't feel she is making progress. She is referred to PT to help stretch her tissue and decrease tightness prior to trying a laser treatment in February. Past medical history includes history of lumbar pain and L2-3 and 4 medial branch rhizotomy 2019, bronchiolo-alveolar carcinoma, scoliosis, osteoporosis, DJD both hips, left meniscal tear. Abby has been seen in PT previously . Treatment included manual therapy techniques to decrease tightnesss in the pelvic floor and introitus, stretches for pelvic pain, vaginal dilator instructions. She is using a estriol cream. Treatment Goals Patient/Caregiver Goals Abby's goals include decreasing tightness in her pelvic floor to be able to have intercourse with her PT-OP-C Subjective Start: 01/05/20 08:58 Freq: Status: Active Protocol: Document 02/02/20 11:23 [facility] (Rec: 02/02/20 11:26 [facility] [id number]) OP-PT Subjective Patient Comments Patient Comments Only used the dilator one time this week, ended up massaging the areas the areas that were tight with her finger and the estrogen cream PT-OP-I Pelvic Floor Start: 01/05/20 08:58 Freq: Status: Active Protocol: Document 01/05/20 13:08 [facility] (Rec: 01/10/20 13:25 [facility] [email or web address]) Pelvic Floor Assessment Urine Pelvic Floor Surgery No Pelvic Clock Pelvic Clock 12-3 Guarding Pelvic Clock 3-6 Guarding Pelvic Clock 6-9 Guarding Pelvic Clock 9-12 Atrophy Pelvic Clock Other pain with pelvic floor examination in the introitus, muscle guarding and tightness in the lateral teixeira of the levator ani Prolapse Uterine Prolapse Grade 2 Comments Pelvic Floor Comments Tightness noted at the introital opening and guarding of the lateral teixeira of the levator ani PT-OP-J Posture/Palpation/Skin Start: 01/05/20 08:58 Freq: Status: Active Protocol: Document 01/05/20 13:08 [facility] (Rec: 01/10/20 13:25 [facility] [email or web address]) Palpation Assessment Location adductors B Palpation Location adductors bilaterally Palpation Findings Soft Tissue Tightness,Muscle Guarding PT-OP-Q Treatments Start: 01/05/20 08:58 Freq: Status: Active Protocol: Document 02/02/20 16:38 [facility] (Rec: 02/02/20 16:44 [facility] [id number]) Therapeutic Exercises Other Exercises 1 Other Exercise Name modified pigeon pose figure 4 stretch Other Exercise Name figure 4 stretch happy baby Other Exercise Name happy baby Side bilateral Manual Therapy Treatment Soft Tissue Mobilization tissue work at the introitus Body Location introutis Mobilization Type Myofascial Release Comments worked on the tissue near the introitus as it appears D Rugated and tight manual release of the levator ani Body Location levator ani left side Mobilization Type Myofascial Release Comments Cross body MFR of the levator ani on the left side of the pelvic clock PT-OP-T Assessment and Plan Start: 01/05/20 08:58 Freq: Status: Active Protocol: Document 02/02/20 16:38 [facility] (Rec: 02/02/20 16:44 [facility] [id number]) Physical Therapy Assessment Assessment Summary Assessment I moved Abby up to the size medium dilator today. The laser treatment probe is a little bigger than the large size dilator so she needs to work up to this Physical Therapy Plan Frequency and Duration Frequency of Treatment 1x/Week Duration of Treatment 12 Plan of Care Start Date 01/05/20 Plan of Care End Date 03/29/20 Therapeutic Interventions Therapeutic Interventions Home Exercise Program,Manual Therapy,Neuromuscular Re- education,Patient/Caregiver Education,Self-Care/Home Management,Soft Tissue Mobilization,Therapeutic Exercises Modalities Biofeedback Next Visit Focus/Plan Next Note Type Treatment Note Next Visit Plan continue working on tissue work to allow Abby to move up in size of dilators.
--- NOTE | 2020-02-09 18:06 | PT.OTN ---
Current Diagnoses Unspecified dyspareunia (02/09/20) Physical Therapy Treatment Note PT-OP-A Visit Information Start: 01/05/20 08:58 Freq: Status: Active Protocol: Document 02/09/20 18:03 [facility] (Rec: 02/09/20 18:06 [facility] [email or web address]) Out-Patient Physical Therapy Visit Information Visit Information Visit Type Treatment Note Visit Start Time 11:20 Visit Stop Time 12:00 Total Visit Minutes 40 Visit Number 5 PT-OP-B Current Condition Start: 01/05/20 08:58 Freq: Status: Active Protocol: Document 01/05/20 13:08 [facility] (Rec: 01/10/20 13:25 [facility] [id number]) Current Condition History of Current Condition Onset Date 5 years Current Complaints dyspareunia History of Current Condition Abby is a 69 year old female who is here with c/o dyspareunia. Abby reports she hasn't been able to have intercourse since her pain began 5 years ago. She has been using a dialator called a ngoc vaginal dilator in which she pumps it up to tolerance. Abby notes she does not like to use the dilator and she doesn't feel she is making progress. She is referred to PT to help stretch her tissue and decrease tightness prior to trying a laser treatment in February. Past medical history includes history of lumbar pain and L2-3 and 4 medial branch rhizotomy 2019, bronchiolo-alveolar carcinoma, scoliosis, osteoporosis, DJD both hips, left meniscal tear. Abby has been seen in PT previously . Treatment included manual therapy techniques to decrease tightnesss in the pelvic floor and introitus, stretches for pelvic pain, vaginal dilator instructions. She is using a estriol cream. Treatment Goals Patient/Caregiver Goals Abby's goals include decreasing tightness in her pelvic floor to be able to have intercourse with her PT-OP-C Subjective Start: 01/05/20 08:58 Freq: Status: Active Protocol: Document 02/09/20 11:18 [facility] (Rec: 02/09/20 11:29 [facility] [id number]) OP-PT Subjective Patient Comments Patient Comments pt reports she used the medium saturday night and stretched the vaginal canal a little bit . She has experienced some leakage. She also had her cortisone injection on and wonders if it had anything to do with it. PT-OP-I Pelvic Floor Start: 01/05/20 08:58 Freq: Status: Active Protocol: Document 01/05/20 13:08 [facility] (Rec: 01/10/20 13:25 [facility] [email or web address]) Pelvic Floor Assessment Urine Pelvic Floor Surgery No Pelvic Clock Pelvic Clock 12-3 Guarding Pelvic Clock 3-6 Guarding Pelvic Clock 6-9 Guarding Pelvic Clock 9-12 Atrophy Pelvic Clock Other pain with pelvic floor examination in the introitus, muscle guarding and tightness in the lateral teixeira of the levator ani Prolapse Uterine Prolapse Grade 2 Comments Pelvic Floor Comments Tightness noted at the introital opening and guarding of the lateral teixeira of the levator ani PT-OP-J Posture/Palpation/Skin Start: 01/05/20 08:58 Freq: Status: Active Protocol: Document 01/05/20 13:08 [facility] (Rec: 01/10/20 13:25 [facility] [email or web address]) Palpation Assessment Location adductors B Palpation Location adductors bilaterally Palpation Findings Soft Tissue Tightness,Muscle Guarding PT-OP-Q Treatments Start: 01/05/20 08:58 Freq: Status: Active Protocol: Document 02/09/20 18:03 [facility] (Rec: 02/09/20 18:06 [facility] [email or web address]) Therapeutic Exercises Supine Exercises pelvic floor quick contractions Reps/Minutes x 10 reps 2 seconds on 2 seconds off EMG biofeedback Supine Exercise Name Pelvic floor long holds x 10 reps Side bilateral Reps/Minutes 10 reps x 10 second holds Manual Therapy Treatment Soft Tissue Mobilization tissue work at the introitus Body Location introutis Mobilization Type Myofascial Release Comments worked on the tissue near the introitus as it appears D Rugated and tight manual release of the levator ani Body Location levator ani left side Mobilization Type Myofascial Release Comments Cross body MFR of the levator ani on the left side of the pelvic clock PT-OP-T Assessment and Plan Start: 01/05/20 08:58 Freq: Status: Active Protocol: Document 02/09/20 18:03 [facility] (Rec: 02/09/20 18:06 [facility] [email or web address]) Physical Therapy Assessment Assessment Summary Assessment I talked with Abby about how the constipation may have contributed to her leakage. She had difficulty with bowel movements for a few days after her cortisone injection last week. Recheck in with this next visit Physical Therapy Plan Frequency and Duration Frequency of Treatment 1x/Week Duration of Treatment 12 Plan of Care Start Date 01/05/20 Plan of Care End Date 03/29/20 Therapeutic Interventions Therapeutic Interventions Home Exercise Program,Manual Therapy,Neuromuscular Re- education,Patient/Caregiver Education,Self-Care/Home Management,Soft Tissue Mobilization,Therapeutic Exercises Modalities Biofeedback
--- NOTE | 2020-02-16 17:23 | PT.OTN ---
Current Diagnoses Unspecified dyspareunia (02/16/20) Physical Therapy Treatment Note PT-OP-A Visit Information Start: 01/05/20 08:58 Freq: Status: Active Protocol: Document 02/16/20 17:21 [facility] (Rec: 02/16/20 17:23 [facility] [email or web address]) Out-Patient Physical Therapy Visit Information Visit Information Visit Type Treatment Note Visit Start Time 11:15 Visit Stop Time 12:00 Total Visit Minutes 45 Visit Number 6 PT-OP-B Current Condition Start: 01/05/20 08:58 Freq: Status: Active Protocol: Document 01/05/20 13:08 [facility] (Rec: 01/10/20 13:25 [facility] [email or web address]) Current Condition History of Current Condition Onset Date 5 years Current Complaints dyspareunia History of Current Condition Abby is a 69 year old female who is here with c/o dyspareunia. Abby reports she hasn't been able to have intercourse since her pain began 5 years ago. She has been using a dialator called a ngoc vaginal dilator in which she pumps it up to tolerance. Abby notes she does not like to use the dilator and she doesn't feel she is making progress. She is referred to PT to help stretch her tissue and decrease tightness prior to trying a laser treatment in February. Past medical history includes history of lumbar pain and L2-3 and 4 medial branch rhizotomy 2019, bronchiolo-alveolar carcinoma, scoliosis, osteoporosis, DJD both hips, left meniscal tear. Abby has been seen in PT previously . Treatment included manual therapy techniques to decrease tightnesss in the pelvic floor and introitus, stretches for pelvic pain, vaginal dilator instructions. She is using a estriol cream. Treatment Goals Patient/Caregiver Goals Abby's goals include decreasing tightness in her pelvic floor to be able to have intercourse with her PT-OP-C Subjective Start: 01/05/20 08:58 Freq: Status: Active Protocol: Document 02/16/20 17:21 [facility] (Rec: 02/16/20 17:23 [facility] [email or web address]) OP-PT Subjective Patient Comments Patient Comments pt reports she did not experience any leaking this past week. She has used only the size small dilator PT-OP-I Pelvic Floor Start: 01/05/20 08:58 Freq: Status: Active Protocol: Document 01/05/20 13:08 [facility] (Rec: 01/10/20 13:25 [facility] [email or web address]) Pelvic Floor Assessment Urine Pelvic Floor Surgery No Pelvic Clock Pelvic Clock 12-3 Guarding Pelvic Clock 3-6 Guarding Pelvic Clock 6-9 Guarding Pelvic Clock 9-12 Atrophy Pelvic Clock Other pain with pelvic floor examination in the introitus, muscle guarding and tightness in the lateral teixeira of the levator ani Prolapse Uterine Prolapse Grade 2 Comments Pelvic Floor Comments Tightness noted at the introital opening and guarding of the lateral teixeira of the levator ani PT-OP-J Posture/Palpation/Skin Start: 01/05/20 08:58 Freq: Status: Active Protocol: Document 01/05/20 13:08 [facility] (Rec: 01/10/20 13:25 [facility] [email or web address]) Palpation Assessment Location adductors B Palpation Location adductors bilaterally Palpation Findings Soft Tissue Tightness,Muscle Guarding PT-OP-Q Treatments Start: 01/05/20 08:58 Freq: Status: Active Protocol: Document 02/16/20 17:21 [facility] (Rec: 02/16/20 17:23 [facility] [email or web address]) Manual Therapy Treatment Soft Tissue Mobilization tissue work at the introitus Body Location introutis Mobilization Type Myofascial Release Comments worked on the tissue near the introitus as it appears D Rugated and tight manual release of the levator ani Body Location levator ani left side Mobilization Type Myofascial Release Comments Cross body MFR of the levator ani on the left side of the pelvic clock PT-OP-T Assessment and Plan Start: 01/05/20 08:58 Freq: Status: Active Protocol: Document 02/16/20 17:21 [facility] (Rec: 02/16/20 17:23 [facility] [email or web address]) Physical Therapy Assessment Assessment Summary Assessment left side of the levator ani was sore today. I encouraged Abby to continue with the size medium dilator for home. Physical Therapy Plan Frequency and Duration Frequency of Treatment 1x/Week Duration of Treatment 12 Plan of Care Start Date 01/05/20 Plan of Care End Date 03/29/20 Therapeutic Interventions Therapeutic Interventions Home Exercise Program,Manual Therapy,Neuromuscular Re- education,Patient/Caregiver Education,Self-Care/Home Management,Soft Tissue Mobilization,Therapeutic Exercises Modalities Biofeedback Next Visit Focus/Plan Next Note Type Treatment Note Next Visit Plan continue working on tissue work to allow Abby to move up in size of dilators.
--- NOTE | 2020-02-23 17:18 | PT.OTN ---
Current Diagnoses Unspecified dyspareunia (02/23/20) Physical Therapy Treatment Note PT-OP-A Visit Information Start: 01/05/20 08:58 Freq: Status: Active Protocol: Document 02/23/20 16:50 [facility] (Rec: 02/23/20 16:51 [facility] [id number]) Out-Patient Physical Therapy Visit Information Visit Information Visit Type Treatment Note Visit Start Time 11:20 Visit Stop Time 12:00 Total Visit Minutes 45 PT-OP-B Current Condition Start: 01/05/20 08:58 Freq: Status: Active Protocol: Document 01/05/20 13:08 [facility] (Rec: 01/10/20 13:25 [facility] [email or web address]) Current Condition History of Current Condition Onset Date 5 years Current Complaints dyspareunia History of Current Condition Abby is a 69 year old female who is here with c/o dyspareunia. Abby reports she hasn't been able to have intercourse since her pain began 5 years ago. She has been using a dialator called a ngoc vaginal dilator in which she pumps it up to tolerance. Abby notes she does not like to use the dilator and she doesn't feel she is making progress. She is referred to PT to help stretch her tissue and decrease tightness prior to trying a laser treatment in February. Past medical history includes history of lumbar pain and L2-3 and 4 medial branch rhizotomy 2019, bronchiolo-alveolar carcinoma, scoliosis, osteoporosis, DJD both hips, left meniscal tear. Abby has been seen in PT previously . Treatment included manual therapy techniques to decrease tightnesss in the pelvic floor and introitus, stretches for pelvic pain, vaginal dilator instructions. She is using a estriol cream. Treatment Goals Patient/Caregiver Goals Abby's goals include decreasing tightness in her pelvic floor to be able to have intercourse with her PT-OP-C Subjective Start: 01/05/20 08:58 Freq: Status: Active Protocol: Document 02/23/20 17:15 [facility] (Rec: 02/23/20 17:16 [facility] [id number]) OP-PT Subjective Patient Comments Patient Comments Abby reports she has used the dilator x 3 times this past week PT-OP-I Pelvic Floor Start: 01/05/20 08:58 Freq: Status: Active Protocol: Document 01/05/20 13:08 [facility] (Rec: 01/10/20 13:25 [facility] [email or web address]) Pelvic Floor Assessment Urine Pelvic Floor Surgery No Pelvic Clock Pelvic Clock 12-3 Guarding Pelvic Clock 3-6 Guarding Pelvic Clock 6-9 Guarding Pelvic Clock 9-12 Atrophy Pelvic Clock Other pain with pelvic floor examination in the introitus, muscle guarding and tightness in the lateral teixeira of the levator ani Prolapse Uterine Prolapse Grade 2 Comments Pelvic Floor Comments Tightness noted at the introital opening and guarding of the lateral teixeira of the levator ani PT-OP-J Posture/Palpation/Skin Start: 01/05/20 08:58 Freq: Status: Active Protocol: Document 01/05/20 13:08 [facility] (Rec: 01/10/20 13:25 [facility] [email or web address]) Palpation Assessment Location adductors B Palpation Location adductors bilaterally Palpation Findings Soft Tissue Tightness,Muscle Guarding PT-OP-Q Treatments Start: 01/05/20 08:58 Freq: Status: Active Protocol: Document 02/23/20 16:52 [facility] (Rec: 02/23/20 16:52 [facility] [id number]) Manual Therapy Treatment Soft Tissue Mobilization tissue work at the introitus Body Location introutis Mobilization Type Myofascial Release Comments worked on the tissue near the introitus as it appears D Rugated and tight manual release of the levator ani Body Location levator ani left side Mobilization Type Myofascial Release Comments Cross body MFR of the levator ani on the left side of the pelvic clock PT-OP-T Assessment and Plan Start: 01/05/20 08:58 Freq: Status: Active Protocol: Document 02/23/20 16:53 [facility] (Rec: 02/23/20 16:55 [facility] [id number]) Physical Therapy Assessment Assessment Summary Assessment Abby has been able to use the size medium dillator now successfully. We will work her up to the size large to enable her to be able to use the laser by the end of March 
--- NOTE | 2020-04-05 13:26 | PT.OTN ---
Current Diagnoses Unspecified dyspareunia (04/05/20) Physical Therapy Treatment Note PT-OP-A Visit Information Start: 01/05/20 08:58 Freq: Status: Active Protocol: Document 04/05/20 11:19 [facility] (Rec: 04/05/20 11:28 [facility] [id number]) Out-Patient Physical Therapy Visit Information Visit Information Visit Type Progress Note Visit Start Time 11:20 Visit Stop Time 12:00 Total Visit Minutes 40 PT-OP-B Current Condition Start: 01/05/20 08:58 Freq: Status: Active Protocol: Document 01/05/20 13:08 [facility] (Rec: 01/10/20 13:25 [facility] [id number]) Current Condition History of Current Condition Onset Date 5 years Current Complaints dyspareunia History of Current Condition Abby is a 69 year old female who is here with c/o dyspareunia. Abby reports she hasn't been able to have intercourse since her pain began 5 years ago. She has been using a dialator called a ngoc vaginal dilator in which she pumps it up to tolerance. Abby notes she does not like to use the dilator and she doesn't feel she is making progress. She is referred to PT to help stretch her tissue and decrease tightness prior to trying a laser treatment in February. Past medical history includes history of lumbar pain and L2-3 and 4 medial branch rhizotomy 2019, bronchiolo-alveolar carcinoma, scoliosis, osteoporosis, DJD both hips, left meniscal tear. Abby has been seen in PT previously . Treatment included manual therapy techniques to decrease tightnesss in the pelvic floor and introitus, stretches for pelvic pain, vaginal dilator instructions. She is using a estriol cream. Treatment Goals Patient/Caregiver Goals Abby's goals include decreasing tightness in her pelvic floor to be able to have intercourse with her PT-OP-C Subjective Start: 01/05/20 08:58 Freq: Status: Active Protocol: Document 04/05/20 11:19 [facility] (Rec: 04/05/20 11:28 [facility] [id number]) OP-PT Subjective Patient Comments Patient Comments Pt is here after her ankle surgery. She is in a walking boot and crutches. 04/28/20 is the date she will get her laser. Mar 01 was her ankle surgery. She hasn't used the diator since then. PT-OP-I Pelvic Floor Start: 01/05/20 08:58 Freq: Status: Active Protocol: Document 01/05/20 13:08 [facility] (Rec: 01/10/20 13:25 [facility] [email or web address]) Pelvic Floor Assessment Urine Pelvic Floor Surgery No Pelvic Clock Pelvic Clock 12-3 Guarding Pelvic Clock 3-6 Guarding Pelvic Clock 6-9 Guarding Pelvic Clock 9-12 Atrophy Pelvic Clock Other pain with pelvic floor examination in the introitus, muscle guarding and tightness in the lateral teixeira of the levator ani Prolapse Uterine Prolapse Grade 2 Comments Pelvic Floor Comments Tightness noted at the introital opening and guarding of the lateral teixeira of the levator ani PT-OP-J Posture/Palpation/Skin Start: 01/05/20 08:58 Freq: Status: Active Protocol: Document 01/05/20 13:08 [facility] (Rec: 01/10/20 13:25 [facility] [email or web address]) Palpation Assessment Location adductors B Palpation Location adductors bilaterally Palpation Findings Soft Tissue Tightness,Muscle Guarding PT-OP-Q Treatments Start: 01/05/20 08:58 Freq: Status: Active Protocol: Document 04/05/20 13:11 [facility] (Rec: 04/05/20 13:16 [facility] [email or web address]) Manual Therapy Treatment Soft Tissue Mobilization tissue work at the introitus Body Location introutis Mobilization Type Myofascial Release Comments worked on the tissue near the introitus as it appears D Rugated and tight manual release of the levator ani Body Location levator ani left side Mobilization Type Myofascial Release Comments Cross body MFR of the levator ani on the left side of the pelvic clock PT-OP-T Assessment and Plan Start: 01/05/20 08:58 Freq: Status: Active Protocol: Document 04/05/20 13:11 [facility] (Rec: 04/05/20 13:16 [facility] [email or web address]) Physical Therapy Assessment Goals adductor tightness B Impairment Adductor tightness bilaterally Short Term Goal (STG) Abby is given a home exercise program for her adductors and levator ani to improve muscle flexiblity and decrease pain GOOD PROGRESS STG Duration 4 weeks Tightness of the levator ani Impairment tightness of the levator ani B [employer] Operator Goal (LTG) With manual therapy techniques we are able to relax the lateral teixeira of the levator ani and reduce pelvic floor tightness and pain. Abby is able to demonstrate resting tone at 0 on EMG biofeedback Good progress. Abby has been able to rest to baseline on EMG biofeedback. LTG Duration 8 weeks pain with intercourse Impairment c/o dyspareunia and unable to have intercourse with her Intermediate Goal (LTG) [place] manual therapy techniques, dilator use, stretches, and laser treatment Abby is able to resume intercourse with her Good progress, on size medium dilator LTG Duration 8 weeks Assessment Summary Assessment Abby had ankle surgery so hasn't been back to PT and she moved her appointment for her laser to the end of April. She reports she has not used the dilator since her surgery or the estrogen cream. We talked about returning to the dilator today . She is still in a walking boot and it was difficult for her to lay with right leg in a comfortable position. I did work on releasing the introitus and levator ani. I did talk to Abby about resuming her estrogen cream. She would benefit from continued PT to work up to her laser treatment. Physical Therapy Plan Frequency and Duration Frequency of Treatment 1x/Week Duration of Treatment 8 Plan of Care Start Date 04/05/20 Plan of Care End Date 05/31/20
--- NOTE | 2020-04-05 13:27 | PT.OPPOC ---
Physical, Occupational & Speech Therapy At [facility] Current Diagnoses Unspecified dyspareunia (04/05/20) Visit Care Team Role Provider Type Andre Louis MD Primary Care Provider Physician Specialty: Family Practice Address: [address] [place] [address], [facility] Email: [email or web address] Idania Pinto MD Family Provider Physician Other Providers Specialty: Family Practice Address: [address] [place] [address], [place], [address] Email: [email or web address] Daina Yan ND Attending Provider Non-Staff Referring Provider Specialty: Naturopathy Address: [address] [place] [address], [facility] Email: Plan Of Care PT-OP-T Assessment and Plan Start: 01/05/20 08:58 Freq: Status: Active Protocol: Document 04/05/20 13:11 [facility] (Rec: 04/05/20 13:16 [facility] [email or web address]) Physical Therapy Assessment Goals adductor tightness B Impairment Adductor tightness bilaterally Short Term Goal (STG) Abby is given a home exercise program for her adductors and levator ani to improve muscle flexibility and decrease pain GOOD PROGRESS STG Duration 4 weeks Tightness of the levator ani Impairment tightness of the levator ani B Halfway Goal (LTG) With manual therapy techniques we are able to relax the lateral teixeira of the levator ani and reduce pelvic floor tightness and pain. Abby is able to demonstrate resting tone at 0 on EMG biofeedback Good progress. Abby has been able to rest to baseline on EMG biofeedback. LTG Duration 8 weeks pain with intercourse Impairment c/o dyspareunia and unable to have intercourse with her Halfway Goal (LTG) [place] manual therapy techniques, dilator use, stretches, and laser treatment Abby is able to resume intercourse with her Good progress, on size medium dilator LTG Duration 8 weeks Assessment Summary Assessment Abby had ankle surgery so hasn't been back to PT and she moved her appointment for her laser to the end of April. She reports she has not used the dilator since her surgery or the estrogen cream. We talked about returning to the dilator today . She is still in a walking boot and it was difficult for her to lay with right leg in a comfortable position. I did work on releasing the introitus and levator ani. I did talk to Abby about resuming her estrogen cream. She would benefit from continued PT to work up to her laser treatment. Physical Therapy Plan Frequency and Duration Frequency of Treatment 1x/Week Duration of Treatment 8 Plan of Care Start Date 04/05/20 Plan of Care End Date 05/31/20 Plan of Care Dates Plan of Care Start Date 04/05/20 Plan of Care End Date 05/31/20 Electronically Signed by: Larisa Sepulveda, PT 04/05/20 2771 Please Sign and Return: I have reviewed this Plan of Care and certify that the skilled therapy services above are required to meet the patient?s needs. Physician Signature Date Printed Name and Credentials Clinical Instructor Signature Printed Name and Credentials
--- NOTE | 2020-04-19 15:53 | PT.OTN ---
Current Diagnoses Unspecified dyspareunia (04/19/20) Physical Therapy Treatment Note PT-OP-A Visit Information Start: 01/05/20 08:58 Freq: Status: Active Protocol: Document 04/19/20 11:29 [facility] (Rec: 04/19/20 11:34 [facility] [id number]) Out-Patient Physical Therapy Visit Information Visit Information Visit Type Treatment Note Visit Start Time 11:25 Visit Stop Time 12:10 Total Visit Minutes 45 Visit Number 9 PT-OP-B Current Condition Start: 01/05/20 08:58 Freq: Status: Active Protocol: Document 01/05/20 13:08 [facility] (Rec: 01/10/20 13:25 [facility] [email or web address]) Current Condition History of Current Condition Onset Date 5 years Current Complaints dyspareunia History of Current Condition Abby is a 69 year old female who is here with c/o dyspareunia. Abby reports she hasn't been able to have intercourse since her pain began 5 years ago. She has been using a dialator called a ngoc vaginal dilator in which she pumps it up to tolerance. Abby notes she does not like to use the dilator and she doesn't feel she is making progress. She is referred to PT to help stretch her tissue and decrease tightness prior to trying a laser treatment in February. Past medical history includes history of lumbar pain and L2-3 and 4 medial branch rhizotomy 2019, bronchiolo-alveolar carcinoma, scoliosis, osteoporosis, DJD both hips, left meniscal tear. Abby has been seen in PT previously . Treatment included manual therapy techniques to decrease tightnesss in the pelvic floor and introitus, stretches for pelvic pain, vaginal dilator instructions. She is using a estriol cream. Treatment Goals Patient/Caregiver Goals Abby's goals include decreasing tightness in her pelvic floor to be able to have intercourse with her PT-OP-C Subjective Start: 01/05/20 08:58 Freq: Status: Active Protocol: Document 04/19/20 11:29 [facility] (Rec: 04/19/20 11:34 [facility] [id number]) OP-PT Subjective Patient Comments Patient Comments Pt reports she got her walking boot off just yesterday. She gets her laser on may 01. The medium dilator is comfotable now. PT-OP-I Pelvic Floor Start: 01/05/20 08:58 Freq: Status: Active Protocol: Document 01/05/20 13:08 [facility] (Rec: 01/10/20 13:25 [facility] [email or web address]) Pelvic Floor Assessment Urine Pelvic Floor Surgery No Pelvic Clock Pelvic Clock 12-3 Guarding Pelvic Clock 3-6 Guarding Pelvic Clock 6-9 Guarding Pelvic Clock 9-12 Atrophy Pelvic Clock Other pain with pelvic floor examination in the introitus, muscle guarding and tightness in the lateral teixeira of the levator ani Prolapse Uterine Prolapse Grade 2 Comments Pelvic Floor Comments Tightness noted at the introital opening and guarding of the lateral teixeira of the levator ani PT-OP-J Posture/Palpation/Skin Start: 01/05/20 08:58 Freq: Status: Active Protocol: Document 01/05/20 13:08 [facility] (Rec: 01/10/20 13:25 [facility] [email or web address]) Palpation Assessment Location adductors B Palpation Location adductors bilaterally Palpation Findings Soft Tissue Tightness,Muscle Guarding PT-OP-Q Treatments Start: 01/05/20 08:58 Freq: Status: Active Protocol: Document 04/19/20 15:49 [facility] (Rec: 04/19/20 15:53 [facility] [email or web address]) Manual Therapy Treatment Soft Tissue Mobilization tissue work at the introitus Body Location introutis Mobilization Type Myofascial Release Comments worked on the tissue near the introitus as it appears D Rugated and tight manual release of the levator ani Body Location levator ani left side Mobilization Type Myofascial Release Comments Cross body MFR of the levator ani on the left side of the pelvic clock Self-Care/Home Management Treatment Education Patient Education Home Exercise Program Other Education pt was given a size large dilator to work up to PT-OP-T Assessment and Plan Start: 01/05/20 08:58 Freq: Status: Active Protocol: Document 04/19/20 15:49 [facility] (Rec: 04/19/20 15:53 [facility] [email or web address]) Physical Therapy Assessment Assessment Summary Assessment Abby was a little guarded left side of the levator ani today but it could also be due to her gait right now after her ankle surgery. I worked on the tissue at the introitus which still feels restricted. She has been able to move to the size medium dilator and this feels comfortable now. I gave her a large dialator for home use today. Physical Therapy Plan Frequency and Duration Frequency of Treatment 1x/Week Duration of Treatment 8 Plan of Care Start Date 04/05/20 Plan of Care End Date 05/31/20
--- NOTE | 2020-05-05 09:17 | PT.OTN ---
Current Diagnoses Unspecified dyspareunia (05/03/20) Physical Therapy Treatment Note PT-OP-A Visit Information Start: 01/05/20 08:58 Freq: Status: Active Protocol: Document 05/03/20 13:50 [facility] (Rec: 05/03/20 13:51 [facility] [id number]) Out-Patient Physical Therapy Visit Information Visit Information Visit Type Treatment Note Visit Start Time 13:45 Visit Stop Time 14:30 Total Visit Minutes 45 Visit Number 10 PT-OP-B Current Condition Start: 01/05/20 08:58 Freq: Status: Active Protocol: Document 01/05/20 13:08 [facility] (Rec: 01/10/20 13:25 [facility] [email or web address]) Current Condition History of Current Condition Onset Date 5 years Current Complaints dyspareunia History of Current Condition Abby is a 69 year old female who is here with c/o dyspareunia. Abby reports she hasn't been able to have intercourse since her pain began 5 years ago. She has been using a dialator called a ngoc vaginal dilator in which she pumps it up to tolerance. Abby notes she does not like to use the dilator and she doesn't feel she is making progress. She is referred to PT to help stretch her tissue and decrease tightness prior to trying a laser treatment in February. Past medical history includes history of lumbar pain and L2-3 and 4 medial branch rhizotomy 2019, bronchiolo-alveolar carcinoma, scoliosis, osteoporosis, DJD both hips, left meniscal tear. Abby has been seen in PT previously . Treatment included manual therapy techniques to decrease tightnesss in the pelvic floor and introitus, stretches for pelvic pain, vaginal dilator instructions. She is using a estriol cream. Treatment Goals Patient/Caregiver Goals Abby's goals include decreasing tightness in her pelvic floor to be able to have intercourse with her PT-OP-C Subjective Start: 01/05/20 08:58 Freq: Status: Active Protocol: Document 05/03/20 13:50 [facility] (Rec: 05/03/20 13:51 [facility] [id number]) OP-PT Subjective Patient Comments Patient Comments reports she is in a lot of pain from her back today. She has her appt for her laser next week. Still working on the dilator but not up to size large yet PT-OP-I Pelvic Floor Start: 01/05/20 08:58 Freq: Status: Active Protocol: Document 01/05/20 13:08 [facility] (Rec: 01/10/20 13:25 [facility] [email or web address]) Pelvic Floor Assessment Urine Pelvic Floor Surgery No Pelvic Clock Pelvic Clock 12-3 Guarding Pelvic Clock 3-6 Guarding Pelvic Clock 6-9 Guarding Pelvic Clock 9-12 Atrophy Pelvic Clock Other pain with pelvic floor examination in the introitus, muscle guarding and tightness in the lateral teixeira of the levator ani Prolapse Uterine Prolapse Grade 2 Comments Pelvic Floor Comments Tightness noted at the introital opening and guarding of the lateral teixeira of the levator ani PT-OP-J Posture/Palpation/Skin Start: 01/05/20 08:58 Freq: Status: Active Protocol: Document 01/05/20 13:08 [facility] (Rec: 01/10/20 13:25 [facility] [email or web address]) Palpation Assessment Location adductors B Palpation Location adductors bilaterally Palpation Findings Soft Tissue Tightness,Muscle Guarding PT-OP-Q Treatments Start: 01/05/20 08:58 Freq: Status: Active Protocol: Document 05/03/20 10:30 [facility] (Rec: 05/05/20 09:17 [facility] [email or web address]) Manual Therapy Treatment Soft Tissue Mobilization tissue work at the introitus Body Location introutis Mobilization Type Myofascial Release Comments worked on the tissue near the introitus as it appears D Rugated and tight manual release of the levator ani Body Location levator ani B release Mobilization Type Myofascial Release Comments Cross body MFR of the levator ani on the left side of the pelvic clock. Pt has been using one crutch and this has changed her gait. She was tighter in her pelvic floor today. PT-OP-T Assessment and Plan Start: 01/05/20 08:58 Freq: Status: Active Protocol: Document 05/03/20 10:30 [facility] (Rec: 05/05/20 09:17 [facility] [email or web address]) Physical Therapy Assessment Goals adductor tightness B Impairment Adductor tightness bilaterally Short Term Goal (STG) Abby is given a home exercise program for her adductors and levator ani to improve muscle flexiblity and decrease pain GOOD PROGRESS STG Duration 4 weeks Tightness of the levator ani Impairment tightness of the levator ani B [employer] Coupler Goal (LTG) With manual therapy techniques we are able to relax the lateral teixeira of the levator ani and reduce pelvic floor tightness and pain. Abby is able to demonstrate resting tone at 0 on EMG biofeedback Good progress. Abby has been able to rest to baseline on EMG biofeedback. LTG Duration 8 weeks pain with intercourse Impairment c/o dyspareunia and unable to have intercourse with her Mcfp Goal (LTG) [place] manual therapy techniques, dilator use, stretches, and laser treatment Abby is able to resume intercourse with her Good progress, on size medium dilator LTG Duration 8 weeks Assessment Summary Assessment Abby was still guarded today and she is in a lot of back pain. The ankle surgery and walking with one crutch has changed her gait. She has her appt next week with her MD in [place] for the laser Physical Therapy Plan Frequency and Duration Frequency of Treatment 1x/Week Duration of Treatment 8 Plan of Care Start Date 04/05/20 Plan of Care End Date 05/31/20 Next Visit Focus/Plan Next Note Type Treatment Note Next Visit Plan continue working on tissue work to allow Abby to move up in size of dilators. Check in on laser treatment next visit
--- NOTE | 2020-05-11 11:58 | PT.OTN ---
Current Diagnoses Unspecified dyspareunia (05/10/20) Physical Therapy Treatment Note PT-OP-A Visit Information Start: 01/05/20 08:58 Freq: Status: Active Protocol: Document 05/10/20 18:19 [facility] (Rec: 05/10/20 18:19 [facility] [email or web address]) Out-Patient Physical Therapy Visit Information Visit Information Visit Type Treatment Note Visit Start Time 13:45 Visit Stop Time 14:30 Total Visit Minutes 45 Visit Number 11 Evaluation Information Evaluation Date 01/05/20 PT-OP-B Current Condition Start: 01/05/20 08:58 Freq: Status: Active Protocol: Document 01/05/20 13:08 [facility] (Rec: 01/10/20 13:25 [facility] [email or web address]) Current Condition History of Current Condition Onset Date 5 years Current Complaints dyspareunia History of Current Condition Abby is a 69 year old female who is here with c/o dyspareunia. Abby reports she hasn't been able to have intercourse since her pain began 5 years ago. She has been using a dialator called a ngoc vaginal dilator in which she pumps it up to tolerance. Abby notes she does not like to use the dilator and she doesn't feel she is making progress. She is referred to PT to help stretch her tissue and decrease tightness prior to trying a laser treatment in February. Past medical history includes history of lumbar pain and L2-3 and 4 medial branch rhizotomy 2019, bronchiolo-alveolar carcinoma, scoliosis, osteoporosis, DJD both hips, left meniscal tear. Abby has been seen in PT previously . Treatment included manual therapy techniques to decrease tightnesss in the pelvic floor and introitus, stretches for pelvic pain, vaginal dilator instructions. She is using a estriol cream. 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 The massage did help her lower back a bit. She has her appt next week in [place] for her laser treatment for the pelvic floor Patient Reported Progress Improving PT-OP-I Pelvic Floor Start: 01/05/20 08:58 Freq: Status: Active Protocol: Document 01/05/20 13:08 [facility] (Rec: 01/10/20 13:25 [facility] [email or web address]) Pelvic Floor Assessment Urine Pelvic Floor Surgery No Pelvic Clock Pelvic Clock 12-3 Guarding Pelvic Clock 3-6 Guarding Pelvic Clock 6-9 Guarding Pelvic Clock 9-12 Atrophy Pelvic Clock Other pain with pelvic floor examination in the introitus, muscle guarding and tightness in the lateral teixeira of the levator ani Prolapse Uterine Prolapse Grade 2 Comments Pelvic Floor Comments Tightness noted at the introital opening and guarding of the lateral teixeira of the levator ani PT-OP-J Posture/Palpation/Skin Start: 01/05/20 08:58 Freq: Status: Active Protocol: Document 01/05/20 13:08 [facility] (Rec: 01/10/20 13:25 [facility] [email or web address]) Palpation Assessment Location adductors B Palpation Location adductors bilaterally Palpation Findings Soft Tissue Tightness,Muscle Guarding PT-OP-Q Treatments Start: 01/05/20 08:58 Freq: Status: Active Protocol: Document 05/10/20 13:45 [facility] (Rec: 05/11/20 11:57 AM[facility] [email or web address]) Manual Therapy Treatment Soft Tissue Mobilization tissue work at the introitus Body Location introutis Mobilization Type Myofascial Release Comments worked on the tissue near the introitus as it appears D Rugated and tight manual release of the levator ani Body Location levator ani B release Mobilization Type Myofascial Release Comments Cross body MFR of the levator ani on the left side of the pelvic clock. Pt has been using one crutch and this has changed her gait. She was tighter in her pelvic floor today. Self-Care/Home Management Treatment Activities Self-Care/Home Management Activities we discussed water walking and using walking poles for walking on land to minimize her limp and decrease strain up to the levator ani. PT-OP-T Assessment and Plan Start: 01/05/20 08:58 Freq: Status: Active Protocol: Document 05/10/20 13:45 [facility] (Rec: 05/11/20 11:57 [facility] [email or web address]) Physical Therapy Assessment Assessment Summary Assessment Abby is doing better with her back this week. I encouraged her to use walking sticks and /or consider pool therapy to help with her gait. Her pelvic floor was not as tight today and she was not as guarded. Physical Therapy Plan Frequency and Duration Frequency of Treatment 1x/Week Duration of Treatment 8 Plan of Care Start Date 04/05/20 Plan of Care End Date 05/31/20 Therapeutic Interventions Therapeutic Interventions Home Exercise Program,Manual Therapy,Neuromuscular Re- education,Patient/Caregiver Education,Self-Care/Home Management,Soft Tissue Mobilization,Therapeutic Exercises Modalities Biofeedback Next Visit Focus/Plan Next Note Type Treatment Note Next Visit Plan continue working on tissue work to allow Abby to move up in size of dilators. Check in on laser treatment next visit
--- NOTE | 2020-05-17 18:04 | PT.OTN ---
Current Diagnoses Unspecified dyspareunia (05/17/20) Physical Therapy Treatment Note PT-OP-A Visit Information Start: 01/05/20 08:58 Freq: Status: Active Protocol: Document 05/17/20 13:45 [facility] (Rec: 05/17/20 18:04 AM[facility] [email or web address]) Out-Patient Physical Therapy Visit Information Visit Information Visit Type Treatment Note Visit Start Time 13:45 Visit Stop Time 14:30 Total Visit Minutes 45 Visit Number 12 PT-OP-B Current Condition Start: 01/05/20 08:58 Freq: Status: Active Protocol: Document 01/05/20 13:08 AM[facility] (Rec: 01/10/20 13:25 AM[facility] [email or web address]) Current Condition History of Current Condition Onset Date 5 years Current Complaints dyspareunia History of Current Condition Abby is a 69 year old female who is here with c/o dyspareunia. Abby reports she hasn't been able to have intercourse since her pain began 5 years ago. She has been using a dialator called a ngoc vaginal dilator in which she pumps it up to tolerance. Abby notes she does not like to use the dilator and she doesn't feel she is making progress. She is referred to PT to help stretch her tissue and decrease tightness prior to trying a laser treatment in February. Past medical history includes history of lumbar pain and L2-3 and 4 medial branch rhizotomy 2019, bronchiolo-alveolar carcinoma, scoliosis, osteoporosis, DJD both hips, left meniscal tear. Abby has been seen in PT previously . Treatment included manual therapy techniques to decrease tightnesss in the pelvic floor and introitus, stretches for pelvic pain, vaginal dilator instructions. She is using a estriol cream. Treatment Goals Patient/Caregiver Goals Abby's goals include decreasing tightness in her pelvic floor to be able to have intercourse with her PT-OP-C Subjective Start: 01/05/20 08:58 Freq: Status: Active Protocol: Document 05/17/20 13:56 [facility] (Rec: 05/17/20 13:57 AMH [id number]) OP-PT Subjective Patient Comments Patient Comments able to get to 15 this past week with the dilator, it felt tight. She has gotten it as high as 16. Sees saturday. Patient Reported Progress Improving PT-OP-I Pelvic Floor Start: 01/05/20 08:58 Freq: Status: Active Protocol: Document 01/05/20 13:08 AM[facility] (Rec: 01/10/20 13:25 AMH [email or web address]) Pelvic Floor Assessment Urine Pelvic Floor Surgery No Pelvic Clock Pelvic Clock 12-3 Guarding Pelvic Clock 3-6 Guarding Pelvic Clock 6-9 Guarding Pelvic Clock 9-12 Atrophy Pelvic Clock Other pain with pelvic floor examination in the introitus, muscle guarding and tightness in the lateral teixeira of the levator ani Prolapse Uterine Prolapse Grade 2 Comments Pelvic Floor Comments Tightness noted at the introital opening and guarding of the lateral teixeira of the levator ani PT-OP-J Posture/Palpation/Skin Start: 01/05/20 08:58 Freq: Status: Active Protocol: Document 01/05/20 13:08 AMH (Rec: 01/10/20 13:25 AMH [email or web address]) Palpation Assessment Location adductors B Palpation Location adductors bilaterally Palpation Findings Soft Tissue Tightness,Muscle Guarding PT-OP-Q Treatments Start: 01/05/20 08:58 Freq: Status: Active Protocol: Document 05/17/20 13:45 AM[facility] (Rec: 05/17/20 18:04 AMH [email or web address]) Manual Therapy Treatment Soft Tissue Mobilization tissue work at the introitus Body Location introutis Mobilization Type Myofascial Release Comments worked on the tissue near the introitus as it appears D Rugated and tight manual release of the levator ani Body Location levator ani B release Mobilization Type Myofascial Release Comments Cross body MFR of the levator ani on the left side of the pelvic clock. Pt has been using one crutch and this has changed her gait. She was tighter in her pelvic floor today. PT-OP-T Assessment and Plan Start: 01/05/20 08:58 Freq: Status: Active Protocol: Document 05/17/20 13:45 AMH (Rec: 05/17/20 18:04 AMH [email or web address]) Physical Therapy Assessment Assessment Summary Assessment able to progress to increased size of inflatable dialator. Pt is doing better this week with her low back and has been able to work on more stretches for the pelvic floor . Physical Therapy Plan Frequency and Duration Frequency of Treatment 1x/Week Duration of Treatment 8 Plan of Care Start Date 04/05/20 Plan of Care End Date 05/31/20 Next Visit Focus/Plan Next Note Type Treatment Note Next Visit Plan continue working on tissue work to allow Abby to move up in size of dilators. Check in on laser treatment next visit
--- NOTE | 2020-06-26 17:41 | PT.OPPOC ---
Physical, Occupational & Speech Therapy At [facility] Current Diagnoses Unspecified dyspareunia (06/23/20) Visit Care Team Role Provider Type Andre Louis MD Primary Care Provider Physician Specialty: Family Practice Address: [address] [place] [address], [facility] Email: [email or web address] Idania Pinto MD Family Provider Physician Other Providers Specialty: Family Practice Address: [address] [place] [address], [id number] Email: [email or web address] Daina Yan [place] Attending Provider Non-Staff Referring Provider Specialty: Naturopathy Address: [address] [place] [address], [facility] Email: Plan Of Care PT-OP-T Assessment and Plan Start: 01/05/20 08:58 Freq: Status: Active Protocol: Document 06/23/20 16:00 AMH (Rec: 06/26/20 17:40 AMH [email or web address]) Physical Therapy Assessment Goals adductor tightness B Impairment Adductor tightness bilaterally Short Term Goal (STG) Abby is given a home exercise program for her adductors and levator ani to improve muscle flexiblity and decrease pain GOAL MET STG Duration 4 weeks Tightness of the levator ani Impairment tightness of the levator ani B Correction Goal (LTG) With manual therapy techniques we are able to relax the lateral teixeira of the levator ani and reduce pelvic floor tightness and pain. Abby is able to demonstrate resting tone at 0 on EMG biofeedback Good progress. Abby has been able to rest to baseline on EMG biofeedback. LTG Duration 8 weeks pain with intercourse Impairment c/o dyspareunia and unable to have intercourse with her Correction Goal (LTG) With manual therapy techniques, dilator use, stretches, and laser treatment Abby is able to resume intercourse with her Good progress, on size medium dilator LTG Duration 8 weeks Assessment Summary Assessment Abby is still working on increasing to her size large dilator. She did not undergo the laser therapy as it was very expensive and she was under the understanding it was more affordable. I did talk to her about the therawand for working on the introitus as well as julvia cream for self massage to her tissue. At this point she will continue working on her own with stretching. Physical Therapy Plan Frequency and Duration Frequency of Treatment 1x/Week Duration of Treatment 1 Plan of Care Start Date 05/17/20 Plan of Care End Date 06/23/20 Discharge Physical Therapy Discharge Reasons Plateau in Progress Plan of Care Dates Plan of Care Start Date 05/17/20 Plan of Care End Date 06/23/20 Electronically Signed by: Larisa Sepulveda, PT 06/26/20 [id number] Please Sign and Return: I have reviewed this Plan of Care and certify that the skilled therapy services above are required to meet the patient?s needs. Physician Signature Date Printed Name and Credentials Clinical Instructor Signature Printed Name and Credentials
--- NOTE | 2020-06-26 17:44 | PT.OTN ---
Current Diagnoses Unspecified dyspareunia (06/23/20) Physical Therapy Treatment Note PT-OP-A Visit Information Start: 01/05/20 08:58 Freq: Status: Active Protocol: Document 06/23/20 16:00 [facility] (Rec: 06/26/20 17:40 AMH [email or web address]) Out-Patient Physical Therapy Visit Information Visit Information Visit Type Treatment Note Visit Start Time 16:07 Visit Stop Time 16:45 Total Visit Minutes 38 Visit Number 13 PT-OP-B Current Condition Start: 01/05/20 08:58 Freq: Status: Active Protocol: Document 01/05/20 13:08 AMH (Rec: 01/10/20 13:25 AMH [email or web address]) Current Condition History of Current Condition Onset Date 5 years Current Complaints dyspareunia History of Current Condition Abby is a 69 year old female who is here with c/o dyspareunia. Abby reports she hasn't been able to have intercourse since her pain began 5 years ago. She has been using a dialator called a ngoc vaginal dilator in which she pumps it up to tolerance. Abby notes she does not like to use the dilator and she doesn't feel she is making progress. She is referred to PT to help stretch her tissue and decrease tightness prior to trying a laser treatment in February. Past medical history includes history of lumbar pain and L2-3 and 4 medial branch rhizotomy 2019, bronchiolo-alveolar carcinoma, scoliosis, osteoporosis, DJD both hips, left meniscal tear. Abby has been seen in PT previously . Treatment included manual therapy techniques to decrease tightnesss in the pelvic floor and introitus, stretches for pelvic pain, vaginal dilator instructions. She is using a estriol cream. Treatment Goals Patient/Caregiver Goals Abby's goals include decreasing tightness in her pelvic floor to be able to have intercourse with her PT-OP-C Subjective Start: 01/05/20 08:58 Freq: Status: Active Protocol: Document 06/23/20 16:10 AMH (Rec: 06/23/20 16:18 AMH [id number]) OP-PT Subjective Patient Comments Patient Comments pt has been using the [place] and has gotten it as high as 16-17 It goes as high as 24. Abby reports she did not undergo the laser treatment as she was under the impression it was something she took home to use and not a in office treatment. PT-OP-I Pelvic Floor Start: 01/05/20 08:58 Freq: Status: Active Protocol: Document 01/05/20 13:08 AMH (Rec: 01/10/20 13:25 [facility] [email or web address]) Pelvic Floor Assessment Urine Pelvic Floor Surgery No Pelvic Clock Pelvic Clock 12-3 Guarding Pelvic Clock 3-6 Guarding Pelvic Clock 6-9 Guarding Pelvic Clock 9-12 Atrophy Pelvic Clock Other pain with pelvic floor examination in the introitus, muscle guarding and tightness in the lateral teixeira of the levator ani Prolapse Uterine Prolapse Grade 2 Comments Pelvic Floor Comments Tightness noted at the introital opening and guarding of the lateral teixeira of the levator ani PT-OP-J Posture/Palpation/Skin Start: 01/05/20 08:58 Freq: Status: Active Protocol: Document 01/05/20 13:08 AMH (Rec: 01/10/20 13:25 AMH [email or web address]) Palpation Assessment Location adductors B Palpation Location adductors bilaterally Palpation Findings Soft Tissue Tightness,Muscle Guarding PT-OP-Q Treatments Start: 01/05/20 08:58 Freq: Status: Active Protocol: Document 06/23/20 16:00 AMH (Rec: 06/26/20 17:40 [facility] [email or web address]) Manual Therapy Treatment Soft Tissue Mobilization tissue work at the introitus Body Location introutis Mobilization Type Myofascial Release Comments worked on the tissue near the introitus as it appears D Rugated and tight manual release of the levator ani Body Location levator ani B release Mobilization Type Myofascial Release PT-OP-T Assessment and Plan Start: 01/05/20 08:58 Freq: Status: Active Protocol: Document 06/23/20 16:00 AMH (Rec: 06/26/20 17:40 [facility] [email or web address]) Physical Therapy Assessment Goals adductor tightness B Impairment Adductor tightness bilaterally Short Term Goal (STG) Abby is given a home exercise program for her adductors and levator ani to improve muscle flexiblity and decrease pain GOAL MET STG Duration 4 weeks Tightness of the levator ani Impairment tightness of the levator ani B Jail Goal (LTG) With manual therapy techniques we are able to relax the lateral teixeira of the levator ani and reduce pelvic floor tightness and pain. Abby is able to demonstrate resting tone at 0 on EMG biofeedback Good progress. Abby has been able to rest to baseline on EMG biofeedback. LTG Duration 8 weeks pain with intercourse Impairment c/o dyspareunia and unable to have intercourse with her Jail Goal (LTG) With manual therapy techniques, dilator use, stretches, and laser treatment Abby is able to resume intercourse with her Good progress, on size medium dilator LTG Duration 8 weeks Assessment Summary Assessment Abby is still working on increasing to her size large dilator. She did not undergo the laser therapy as it was very expensive and she was under the understanding it was more affordable. I did talk to her about the theraband for working on the introitus as well as julvia cream for self massage to her tissue. At this point she will continue working on her own with stretching. Physical Therapy Plan Frequency and Duration Frequency of Treatment 1x/Week Duration of Treatment 1 Plan of Care Start Date 05/17/20 Plan of Care End Date 06/23/20 Discharge Physical Therapy Discharge Reasons Plateau in Progress
== END 2020-06-29 12:01 | disposition home or self-care (01) ==
LOC: PHYS 16:00
PROVIDERS: Family Provider Family Medicine; PCP Family Medicine; Referring Provider Naturopath; Visit Provider Naturopath
DX: N94.10 Unspecified dyspareunia (principal)
CPT/HCPCS: 97110; 97140; 97161

== ENCOUNTER → 2020-06-29 19:10 | Outpatient (ROUT) | payer MEDICARE, SELFPAY ==
[2020-06-29 20:24] LABS: Appearance Urine UA CLEAR; Bilirubin Urine UA NEGATIVE (NEGATIVE); Color Urine UA YELLOW; Glucose Urine UA NEGATIVE (Negative); Ketones Urine UA NEGATIVE (NEGATIVE); Leukocyte Esterase Urine UA 2+ (NEGATIVE); Nitrite Urine UA NEGATIVE (Negative); Occult Blood Urine UA 1+ (Negative); Protein Urine UA NEGATIVE (Negative); Specific Gravity Urine UA <=1.005 (1.000-1.035); Urobilinogen Urine UA 0.2 E.U./dL (0.2)
[2020-06-29 20:50] LABS: pH Urine UA 6.5 (4.5-8.0)
[2020-06-29 20:57] LABS: Bacteria Urine Moderate (10-30); RBC Urine 0-1/HPF (0-5/HPF); Squamous Epithelial Cell Urine 1-5 /HPF (0-5/HPF); Transitional Epi Cells Urine 1-5/HPF (0-5/HPF); WBC Urine 10-30/HPF (0-5/HPF)
[2020-06-29 20:58] LABS: Culture Indicated Urine Specimen Cultured; Hyaline Casts Urine 1-5/LPF
== END ==
PROVIDERS: Family Provider Family Medicine; PCP Family Medicine; Visit Provider Naturopath
DX: N30.90 Cystitis, unspecified without hematuria (principal)
CPT/HCPCS: 81001; 87077; 87086; 87186

== ENCOUNTER → 2020-08-03 15:47 | Outpatient (CLI) | payer MEDICARE, OTHER, SELFPAY ==
[2020-08-03 15:54] LABS: Bacteria Urine None Seen; RBC Urine None Seen (0-5/HPF)
[2020-08-03 16:15] LABS: Appearance Urine UA CLEAR; Bilirubin Urine UA NEGATIVE (NEGATIVE); Color Urine UA YELLOW; Glucose Urine UA NEGATIVE (Negative); Ketones Urine UA NEGATIVE (NEGATIVE); Leukocyte Esterase Urine UA TRACE (NEGATIVE); Nitrite Urine UA NEGATIVE (Negative); Occult Blood Urine UA NEGATIVE (Negative); Protein Urine UA NEGATIVE (Negative); Specific Gravity Urine UA <=1.005 (1.000-1.035); Urobilinogen Urine UA 0.2 E.U./dL (0.2)
[2020-08-03 16:17] LABS: Add Manual Diff / Slide Review NO; Basophils Absolute Auto 0 /uL (0-100); Basophils Percent Auto 0.4 % (0-2); Eosinophils Absolute Auto 0 /uL (0-450); Eosinophils Percent Auto 0.5 % (2-4); Hematocrit 44.6 % (36-46); Hemoglobin 15.2 g/dL (12.0-16.0); Lymphocytes Absolute Auto 1100 /uL (1100-4500); Lymphocytes Percent Auto 19.2 % (25-40); Mean Corpuscular Hemoglobin 30.5 PG (26-34); Mean Corpuscular Volume 89.8 fL (80-100); Monocytes Absolute Auto 400 /uL (0-900); Monocytes Percent Auto 7.7 % (3-14); Neutrophils Absolute Auto 4100 /uL (1500-7000); Neutrophils Percent Auto 72.2 % (50-75); Platelet Count 275 X10^3/uL (150-400); Red Blood Cell Count 4.97 X10^6/uL (4.0-5.2); White Blood Cell Count 5.7 X10^3/uL (4.5-11.0)
[2020-08-03 16:33] LABS: Renal Epithelial Cells Urine 1-5/HPF (0-1/HPF); WBC Urine 0-1/HPF (0-5/HPF)
[2020-08-03 16:34] LABS: Culture Indicated Urine Cult Not Indicated
[2020-08-03 16:57] LABS: Alanine Aminotransferase 13 IU/L (<35); Albumin 4.4 g/dL (3.5-5.0); Albumin Globulin Ratio 1.5 (1.0-2.8); Alkaline Phosphatase 80 U/L (38-126); Aspartate Aminotransferase 22 IU/L (14-36); BUN Creatinine Ratio 12.7 (6-22); Bilirubin Total 0.3 mg/dL (0.2-1.3); Blood Urea Nitrogen 7 mg/dL (7-17); Calcium 9.7 mg/dL (8.4-10.2); Carbon Dioxide 21 mmol/L (22-32); Chloride 105 mmol/L (98-107); Estimated Glomerular Filt Rate > 60.0 mL/min (>60); Globulin 2.9 g/dL (1.7-4.1); Glucose 89 mg/dL (80-110); HEMOLYSIS < 15 (0-50); Potassium 3.9 mmol/L (3.4-5.1); Sodium 135 mmol/L (137-145); Total Protein 7.3 g/dL (6.3-8.2)
[2020-08-03 17:43] LABS: Vitamin B12 Reflex MMA if <400 655 pg/mL (239-931)
[2020-08-03 17:55] LABS: Free T3, Triiodothyronine Free 3.88 pg/mL (2.77-5.27); T4 Total Thyroxine 8.18 ug/dL (5.5-11.0)
[2020-08-03 18:08] LABS: TSH w/ Reflex to FT4 1.05 uIU/mL (0.47-4.68)
== END ==
PROVIDERS: Family Provider Family Medicine; PCP Family Medicine; Referring Provider Family Medicine; Visit Provider Family Medicine
DX: E03.9 Hypothyroidism, unspecified (principal); E78.2 Mixed hyperlipidemia; F41.9 Anxiety disorder, unspecified; F51.01 Primary insomnia
CPT/HCPCS: 36415; 80053; 81001; 82607; 84436; 84443; 84481; 85025

== ENCOUNTER 2020-08-30 10:51 | Emergency (ER) | payer MEDICARE, OTHER, SELFPAY ==
[2020-08-30 11:05] VITALS: BP 129/81; PULSE 72; RESP 16; TEMP 36.7; O2SAT 95
--- NOTE | 2020-08-30 11:12 | DI.RAD.S_ITS ---
PROCEDURE: XR ABDOMEN MIN 2V INDICATIONS: no bm recently/pain TECHNIQUE: 2 views of the abdomen were acquired. COMPARISON: None. FINDINGS: Surgical changes and devices: None. Bowel: No pneumoperitoneum. The bowel gas pattern is abnormal with generalized colonic obstipation. Soft tissues: No masses; visualized solid organ contours appear normal in size. No suspicious abdominal calcifications. Lung volumes are large, COPD is suspected Bones: No suspicious bony abnormalities. Moderate levoscoliosis.. IMPRESSION: Generalized colonic obstipation. Moderate levoscoliosis, suspect COPD. Dictated by: Dick Pugh M.D. on 08/30/2020 at 11:31 Approved by: Dick Pugh M.D. on 08/30/2020 at 11:32
[2020-08-30 13:16] VITALS: BP 174/88; PULSE 67; O2SAT 97
[2020-08-30 14:49] LABS: Add Manual Diff / Slide Review NO; Basophils Absolute Auto 0 /uL (0-100); Basophils Percent Auto 0.5 % (0-2); Eosinophils Absolute Auto 0 /uL (0-450); Eosinophils Percent Auto 0.6 % (2-4); Hematocrit 41.3 % (36-46); Hemoglobin 13.8 g/dL (12.0-16.0); Lymphocytes Absolute Auto 1200 /uL (1100-4500); Lymphocytes Percent Auto 25.6 % (25-40); Mean Corpuscular HGB Conc 33.5 % (30-36); Mean Corpuscular Volume 89.7 fL (80-100); Monocytes Absolute Auto 300 /uL (0-900); Monocytes Percent Auto 7.2 % (3-14); Neutrophils Absolute Auto 3200 /uL (1500-7000); Neutrophils Percent Auto 66.1 % (50-75); Platelet Count 277 X10^3/uL (150-400); Red Cell Distribution Width 12.8 % (11.6-14.8); White Blood Cell Count 4.8 X10^3/uL (4.5-11.0)
[2020-08-30 14:56] LABS: Alanine Aminotransferase 16 IU/L (<35); Albumin 4.1 g/dL (3.5-5.0); Albumin Globulin Ratio 1.5 (1.0-2.8); Alkaline Phosphatase 68 U/L (38-126); Aspartate Aminotransferase 24 IU/L (14-36); Bilirubin Total 0.4 mg/dL (0.2-1.3); Blood Urea Nitrogen 5 mg/dL (7-17); Calcium 9.5 mg/dL (8.4-10.2); Carbon Dioxide 24 mmol/L (22-32); Chloride 106 mmol/L (98-107); Estimated Glomerular Filt Rate > 60.0 mL/min (>60); Globulin 2.8 g/dL (1.7-4.1); Glucose 87 mg/dL (80-110); HEMOLYSIS < 15 (0-50); Lipase 46 U/L (23-300); Potassium 3.8 mmol/L (3.4-5.1); Sodium 138 mmol/L (137-145); Total Protein 6.9 g/dL (6.3-8.2)
--- NOTE | 2020-08-30 16:45 | ED_ITS ---
HPI - Abdominal Pain General Chief Complaint: Abdominal Pain Stated Complaint: have not had a bowel movement for 3 weeks Time Seen by Provider: 08/30/20 16:39 Source: patient Mode of arrival: Ambulatory Limitations: no limitations History of Present Illness HPI narrative: Patient is a 70-year-old female who presents with cough to patient. She says she is suffering from depression right now in her bowel movements have not been very regular. She is taking Metamucil, Colace and prune juice every day. But feels like she has not had a true bowel movement for the last 3 weeks. Although she has had small waldemar. She feels like her abdomen is distended she has no appetite. She is afraid to take anything as such as magnesium citrate or MiraLax because she is afraid of the taste. Related Data Previous Rx's Medication Instructions Recorded fluticasone propionate 50 1 spray INTRANASAL QDAY #1 bot 12/23/15 mcg/actuation nasal spray,suspension (Flonase Allergy Relief) tramadol 50 mg tablet 50 mg PO TID PRN #30 tab 07/29/19 Disabled Parking Permit #1 each 09/14/19 triamcinolone acetonide 0.5 % 1 applictn TOP BID #15 gram 01/14/20 topical cream Bio identical hormone See Rx Instructions TOPICAL DAILY 06/03/20 #1 tube thyroid (pork) 15 mg tablet 15 mg PO DAILY #90 tab 06/10/20 ([place] Thyroid) thyroid (pork) 60 mg tablet 60 mg PO DAILY #90 tab 06/10/20 ([place] Thyroid) desonide 0.05 % topical cream 1 applic TOPICAL BID PRN #15 g 07/08/20 clonazepam 0.5 mg tablet (Klonopin) 0.75 mg PO BEDTIME #45 tab 08/12/20 mirtazapine 15 mg tablet 15 mg PO BEDTIME #30 tab 08/12/20 quetiapine 50 mg tablet (Seroquel) 100 mg PO BEDTIME #60 tab 08/12/20 venlafaxine 150 mg 150 mg PO DAILY #60 cap 08/12/20 capsule,extended release 24 hr (Effexor XR) aripiprazole 5 mg tablet 5 mg PO BEDTIME #30 tab 08/23/20 linaclotide 72 mcg capsule 72 mcg PO DAILY #60 cap 08/24/20 (Linzess) bupropion HCl 75 mg tablet 75 mg PO DAILY #30 tab 08/29/20 magnesium citrate 300 ml PO DAILY PRN #300 ml 08/30/20 Allergies Allergy/AdvReac Type Severity Reaction Status Date / Time No Known Drug Allergies Allergy Verified 08/29/20 13:26 Review of Systems Review of Systems Narrative: GENERAL: Denies chills, fatigue, malaise, fever, sweats, travel HEENT: Denies sinus pain, ear pain, sore throat, difficulty swallowing, neck pain RESPIRATORY: Denies dyspnea, cough, wheezing, hemoptysis, sputum. CARDIOVASCULAR: Denies chest pain, palpitations, orthopnea, edema GASTROINTESTINAL: See HPI : Denies dysuria, frequency, incontinence, hematuria, urinary retention, flank pain. MUSCULOSKELETAL: Denies weakness, joint pain, or bony pain SKIN: No rash, no erythema, no pruritus NEUROLOGIC: Denies weakness, dizziness, headache, numbness, change in speech, confusion PSYCHIATRIC: No concerning psychosocial issues. 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 Insomnia Lumbosacral spondylosis with radiculopathy Measles (1957) Menopause Osteoporosis Scarlet fever (1955) Scoliosis (1948) Scoliosis Unilateral primary osteoarthritis, left knee Surgical History Anesthesia Finger joint replacement of left hand (2011) History of lung surgery (06/2009) History of meniscectomy of left knee (06/18/16) Family History Father Heart disease Heart attack Mother Alcohol abuse Colon cancer Emphysema of lung Sister Mental health problem Colon cancer Liver cancer Lung cancer Ovarian cancer Family history of fraternal twins Social History household members: spouse Smoking Status: Never smoker alcohol intake: current (Maybe 4 glasses of wine a week) substance use type: marijuana (Once in a while) Smoking Status: Never smoker Substance Use Type: does not use Exam Initial Vital Signs Initial Vital Signs: Vital Signs Temperature 98.0 F 08/30/20 11:05 Pulse Rate 72 08/30/20 11:05 Respiratory Rate 16 08/30/20 11:05 Blood Pressure 129/81 08/30/20 11:05 Pulse Oximetry 95 08/30/20 11:05 GENERAL: Alert anxious 70-year-old female HEENT: Head atraumatic,EOMI, pupils reactive, face symmetric, moist mucous membranes CARDIOVASCULAR: Regular rate and rhythm without murmurs, rubs or gallops. RESPIRATORY: Breath sounds equal bilaterally, no wheezes rales or rhonchi. ABDOMEN: Soft, nontender. No distention Normoactive bowel sounds all 4 quadrants. No guarding or rebound. EXTREMITIES: Normal range of motion, no clubbing or edema. Neurovascularly intact NEUROLOGICAL: Alert and oriented x4.Normal gait and speech. SKIN: Warm, dry, no laceration, no petechiae, no rashes or lesions. Course Orders Ordered: ED Orders 08/30/20 14:20 Complete Blood Count AUTO DIFF Stat Comprehensive Metabolic Panel Stat Lipase Stat Discontinued Medications Magnesium Citrate (Magnesium Citrate 300 Ml Solution) 300 ml PO NOW ONE Stop: 08/30/20 16:40 Last Admin: 08/30/20 16:50 Dose: 300 ml Documented by: ADEN Vital Signs Vital signs: Vital Signs - 8 hr 08/30/20 13:16 08/30/20 17:30 Pulse Rate 67 81 Respiratory Rate 18 Blood Pressure 174/88 H 160/88 H Pulse Oximetry 97 98 MDM - Abdominal Pain Lab Data Result diagrams: 08/30/20 14:20 08/30/20 14:20 Labs: Lab Results 08/30/20 08/30/20 Range/Units 14:20 14:20 WBC 4.8 (4.5-11.0) X10^3/uL RBC 4.60 (4.0-5.2) X10^6/uL Hgb 13.8 (12.0-16.0) g/dL Hct 41.3 (36-46) % MCV 89.7 (80-100) fL MCH 30.0 (26-34) PG MCHC 33.5 (30-36) % RDW 12.8 (11.6-14.8) % Plt Count 277 (150-400) X10^3/uL Neut % (Auto) 66.1 (50-75) % Lymph % (Auto) 25.6 (25-40) % [place] % (Auto) 7.2 (3-14) % Eos % (Auto) 0.6 L (2-4) % Baso % (Auto) 0.5 (0-2) % Neut # (Auto) 3200 (2755-6032) /uL Lymph # (Auto) 1200 (4981-2379) /uL [place] # (Auto) 300 (0-900) /uL Eos # (Auto) 0 (0-450) /uL Baso # (Auto) 0 (0-100) /uL Sodium 138 (137-145) mmol/L Potassium 3.8 (3.4-5.1) mmol/L Chloride 106 (98-107) mmol/L Carbon Dioxide 24 (22-32) mmol/L BUN 5 L (7-17) mg/dL Creatinine 0.50 L (0.52-1.04) mg/dL Estimated GFR > 60.0 (>60) mL/min BUN/Creatinine Ratio 10.0 (6-22) Glucose 87 (80-110) mg/dL Calcium 9.5 (8.4-10.2) mg/dL Total Bilirubin 0.4 (0.2-1.3) mg/dL AST 24 (14-36) IU/L ALT 16 (<35) IU/L Alkaline Phosphatase 68 (38-126) U/L Total Protein 6.9 (6.3-8.2) g/dL Albumin 4.1 (3.5-5.0) g/dL Globulin 2.8 (1.7-4.1) g/dL Albumin/Globulin Ratio 1.5 (1.0-2.8) Lipase 46 (23-300) U/L Point of care testing: Urine Dip Bedside Urine Glucose Negative Bedside Urine Bilirubin - Negative Bedside Urine Ketone - Negative Urine Specific [place] 1.015 Bedside Urine Occult Blood - Negative Bedside Urine pH 6.0 Bedside Urine Protein - Negative Bedside Urine Urobilinogen - Negative Bedside Urine Nitrite - Negative Bedside Urine Leukocytes - Negative Esterase Imaging Data Abdominal x-ray: Radiologist's Impression: PROCEDURE: XR ABDOMEN MIN 2V INDICATIONS: no bm recently/pain TECHNIQUE: 2 views of the abdomen were acquired. COMPARISON: None. FINDINGS: Surgical changes and devices: None. Bowel: No pneumoperitoneum. The bowel gas pattern is abnormal with generalized colonic obstipation. Soft tissues: No masses; visualized solid organ contours appear normal in size. No suspicious abdominal calcifications. Lung volumes are large, COPD is suspected Bones: No suspicious bony abnormalities. Moderate levoscoliosis.. IMPRESSION: Generalized colonic obstipation. Moderate levoscoliosis, suspect COPD. Dictated by: Dick Pugh M.D. on 08/30/2020 at 11:31 MDM Narrative Medical decision making narrative: At this time patient's abdomen is relatively soft she has bowel sounds no real tenderness. X-ray does show obstipation and she is complaining of no bowel movement. I have offered her a CT however she has opted not to at this time blood work is overall reassuring. Discussed with her options for constipation which include magnesium citrate, lactulose. At this time she would like to try magnesium citrate but she would like to try the taste of it before I write her a prescription. They are now requesting to leave. At this time she certainly does not meet any admission criteria Discharge Plan Departure Patient Disposition: Home Clinical Impression: Constipation Instructions: DI for Constipation Activity Restrictions/Additional Instructions: *You have been diagnosed with constipation *What to do: Increase fluid intake *Continue to take medications as directed Magnesium citrate 150-300 mL a day or as needed for constipation *Follow up with your primary care provider in 2-3 days *Return to ER if you should have increasing abdominal pain, persistent vomiting, or any new, worsening or concerning symptoms Prescriptions: New magnesium citrate Solution 300 ml PO DAILY PRN (Reason: constipation) Qty: 300 RF: 0 No Action aripiprazole 5 mg tablet 5 mg PO BEDTIME Qty: 30 RF: 3 bupropion HCl 75 mg tablet 75 mg PO DAILY Qty: 30 RF: 3 fluticasone propionate [Flonase Allergy Relief] 9.9 ML spray,suspension 1 spray Intranasal QDAY Qty: 1 RF: 1 tramadol 50 mg tablet 50 mg PO TID PRN (Reason: pain) Qty: 30 RF: 1 Hold Instructions: Home Medication placed on hold at Doctor's office venlafaxine [Effexor XR] 150 mg capsule,extended release 24hr 150 mg PO DAILY Qty: 60 RF: 0 mirtazapine 15 mg tablet 15 mg PO BEDTIME Qty: 30 RF: 0 quetiapine [Seroquel] 50 mg tablet 100 mg PO BEDTIME Qty: 60 RF: 3 Hold Instructions: changing medication clonazepam [Klonopin] 0.5 mg tablet 0.75 mg PO BEDTIME Qty: 45 RF: 0 triamcinolone acetonide 0.5 % cream 1 applictn TOP BID Qty: 15 RF: 0 thyroid (pork) [[place] Thyroid] 15 mg tablet 15 mg PO DAILY Qty: 90 RF: 3 thyroid (pork) [[place] Thyroid] 60 mg tablet 60 mg PO DAILY Qty: 90 RF: 3 Bio identical hormone See Rx Instructions topical DAILY Qty: 1 RF: 3 desonide 0.05 % cream 1 applic topical BID PRN (Reason: dermatitis) Qty: 15 RF: 0 Linzess 72 mcg capsule 72 mcg PO DAILY Qty: 60 RF: 0 (DME) Disabled Parking Permit See Rx Instructions .ROUTE .MEDSUPPLY Qty: 1 RF: 0 Referrals: Andre Louis MD [Primary Care Provider] -
[2020-08-30] MEDS: MAGNESIUM CITRATE 300 ML SOLUTION PO (16:50)
[2020-08-30 17:30] VITALS: BP 160/88; PULSE 81; RESP 18; O2SAT 98
== END 2020-08-30 17:31 | disposition home or self-care (01) ==
PROVIDERS: Emergency Provider Emergency Medicine; Family Provider Family Medicine; PCP Family Medicine
DX: K59.00 Constipation, unspecified (principal)
CPT/HCPCS: 36415; 74019; 80053; 81003; 83690; 85025; 99283; 99284

== ENCOUNTER → 2021-02-14 13:53 | Outpatient (CLI) | payer MEDICARE, OTHER, SELFPAY ==
[2021-02-14 15:03] LABS: Free T3, Triiodothyronine Free 4.54 pg/mL (2.77-5.27); Free T4, Direct Thyroxine 0.86 ng/dL (0.78-2.19)
[2021-02-14 15:16] LABS: TSH w/ Reflex to FT4 1.28 uIU/mL (0.47-4.68)
== END ==
PROVIDERS: Family Provider Family Medicine; PCP Family Medicine; Referring Provider Family Medicine; Visit Provider Family Medicine
DX: E03.9 Hypothyroidism, unspecified (principal); F41.9 Anxiety disorder, unspecified; M54.40 Lumbago with sciatica, unspecified side; G89.29 Other chronic pain; M41.26 Other idiopathic scoliosis, lumbar region; L65.9 Nonscarring hair loss, unspecified
CPT/HCPCS: 36415; 84439; 84443; 84481

== ENCOUNTER → 2021-03-27 17:04 | Outpatient (CLI) | payer MEDICARE, OTHER, SELFPAY ==
--- NOTE | 2021-03-27 17:06 | DI.MG.S_ITS ---
BILATERAL DIGITAL SCREENING MAMMOGRAM 3D/2D WITH CAD: 03/27/2021 CLINICAL: Routine screening. Comparison is made to exams dated: 12/07/2019 mammogram, 11/28/2019 mammogram, 11/26/2018 mammogram, 03/19/2018 ultrasound, 04/26/2017 mammogram, and 03/19/2018 mammogram - [facility]. The tissue of both breasts is heterogeneously dense. This may lower the sensitivity of mammography. Current study was also evaluated with a Computer Aided Detection (CAD) system. There are benign post operative findings in both breasts. No significant masses, calcifications, or other findings are seen in either breast. There has been no significant interval change. IMPRESSION: BENIGN There is no mammographic evidence of malignancy. A 1 year screening mammogram is recommended. This exam was interpreted at Station ID: [id number]. NOTE: For mammograms, a report in lay terms will be sent to the patient. Approximately 15% of breast malignancies will not be visualized mammographically. In the management of a palpable breast mass, a negative mammogram must not discourage biopsy of a clinically suspicious lesion. Electronically Signed By: Lui youngblood/[email or web address]:03/28/2021 09:52:51 copy to: MARA GARRISON letter sent: Normal Exam ACR BI-RADS Category 2: Benign Finding(s) [id number]
== END ==
PROVIDERS: Family Provider Family Medicine; PCP Family Medicine; Referring Provider Family Medicine; Visit Provider Family Medicine
DX: Z12.31 Encounter for screening mammogram for malignant neoplasm of breast (principal)
CPT/HCPCS: 77063; 77067

== ENCOUNTER 2021-04-11 11:15 | Outpatient (RCR) | payer MEDICARE, OTHER, SELFPAY ==
--- NOTE | 2021-02-14 17:29 | PT.OIE ---
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) Cataract (lens) fragments in eye following cataract surgery, right eye Chronic back pain (1998) Chronic low back pain Colon polyps (1995) Degenerative joint disease of both hips Depression (2007) External hemorrhoids Facet arthropathy, lumbar Finger joint replacement of left hand (2011) GERD (gastroesophageal reflux disease) (1995) Hearing loss (2009) Herniated nucleus pulposus, L4-5 History of lung surgery (06/2009) History of meniscectomy of left knee (06/18/16) Hyperlipidemia Hypothyroidism (2011) Hypothyroidism 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 Insomnia Lumbosacral spondylosis with radiculopathy Measles (1957) Menopause Osteoporosis Scarlet fever (1955) Scoliosis (1948) Scoliosis Unilateral primary osteoarthritis, left knee Past Surgical History (Last Reviewed 08/26/20 @ 14:15 by Andre Louis MD) Anesthesia Finger joint replacement of left hand (2011) History of lung surgery (06/2009) History of meniscectomy of left knee (06/18/16) Visit Care Team Role Provider Type Andre Louis MD Attending Provider Physician Family Provider Primary Care Provider Referring Provider Specialty: Family Practice Address: [address] [place] [address] Email: [email or web address] Therapy Initial Evaluation PT-OP-A Visit Information Start: 02/09/21 09:18 Freq: Status: Active Protocol: Document 02/14/21 13:45 AW (Rec: 02/14/21 17:49 AW [email or web address]) Out-Patient Physical Therapy Visit Information Visit Information Visit Type Initial Evaluation Visit Start Time 13:00 Visit Stop Time 13:45 Total Visit Minutes 45 Visit Number 1 Number of RECREATION ATTENDANT Visits 0 Evaluation Information Evaluation Date 02/14/21 Precautions Precautions Anterior hip precautions. Osteoporosis. PT-OP-B Current Condition Start: 02/09/21 09:18 Freq: Status: Active Protocol: Document 02/14/21 13:45 AW (Rec: 02/09/21 09:26 AW [email or web address]) Current Condition History of Current Condition Onset Date 01/11/21 Current Complaints R hip pain s/p 01/11/21 R SILVER with anterior approach History of Current Condition Pt had R anterior SILVER on 01/11. She continues to have pain which is largely localized at her groin. Her surgical site is still very sore although swelling has decreased. She is using 3WW at all times but will take steps without it if she can cruise a countertop. She is not taking pain medication other than occasional ibuprofen. Her pain is sharp. She used cold initially but no longer. Pt has been doing glute sets, quad sets, and heel slides daily but reports that it hurts afterward. PMH includes levoscoliosis, low back pain, hypothyroid, L2-3 L3-4 medial branch rhizotomy 07/28/2019 with no relief. PMH also significant for bronchiolo- alveolar carcinoma and osteoporosis. Pt reports she and her spouse are moving to [facility] in May 2021. Prior Treatments and Tests - Referral from LOUIE Mccabe: 01/24 - initiate gait training and work on pelvic imbalance. Avoid stretching until Future Testing and Treatments Planned None identified. Treatment Goals Patient/Caregiver Goals Walk without assistive device. Be able to manage preparation for moving with less pain. Return to yoga, pilates. Squat without pain. Prior Functional Status Baseline Function- Gait Independent without AD Current Functional Impairments (Reported) Functional Limitations- Mobility/Gait Pt needs 3WW for ambulation and is limited to household or short community distances. PT-OP-C Subjective Start: 02/09/21 09:18 Freq: Status: Active Protocol: Document 02/14/21 13:45 AW (Rec: 02/14/21 17:49 AW [email or web address]) Patient Questionnaires Lower Extremity Functional Scale LEFS Score 17 LEFS Impairment 60 to 79% Impaired (Score 17- 31) OP-PT Pain Assessment Pain Assessment Grid Paper Pain Assessment Grid Completed Yes: Scanned to EMR PT-OP-D Balance Start: 02/09/21 09:18 Freq: Status: Active Protocol: Document 02/14/21 13:45 AW (Rec: 02/15/21 13:33 AW [email or web address]) Balance Tests Single Limb Standing Single Limb- Right unable Single Limb- Left 10 sec with fingertip support on wall PT-OP-E Functional Tests Start: 02/09/21 09:18 Freq: Status: Active Protocol: Document 02/14/21 13:45 AW (Rec: 02/15/21 13:46 AW [email or web address]) Functional Tests 6 Minute Walk Test Distance 840 feet Device Used 3WW Comments 0.7 m/s average speed with consistent split times PT-OP-F Manual Assessment Start: 02/09/21 09:18 Freq: Status: Active Protocol: Document 02/14/21 13:45 AW (Rec: 02/15/21 13:33 AW [email or web address]) Manual Assessments Soft Tissue Assessment Soft Tissue Mobility Assessment Increased tone in right groin/ adductors. Surgical scar is well-healed but with decreased mobility. PT-OP-G Mobility & Gait Start: 02/09/21 09:18 Freq: Status: Active Protocol: Document 02/14/21 13:45 AW (Rec: 02/15/21 13:33 AW [email or web address]) OP Mobility Evaluation Functional Movements Squats unable past 80 degrees due to pain OP Gait Assessment Comments Gait Comments Antalgic gait with need for walker. Pt currently using 3WW PT-OP-K Range of Motion Start: 02/09/21 09:18 Freq: Status: Active Protocol: Document 02/14/21 13:45 AW (Rec: 02/15/21 13:41 AW [email or web address]) Hip Goniometric Range of Motion Hip Right Hip ROM WFL No Testing Position Supine Flexion w/Knee Flexed 80 Comments PROM to 90 with report of pain Left Hip ROM WFL Yes Testing Position Supine Flexion w/Knee Flexed 110 Straight Leg Raise 85 Comments PROM to 125 without pain Hip ROM Limitations Hip ROM Limitations Pain Knee Goniometric Range of Motion Knee bilat Knee ROM WFL Yes Ankle and Foot Goniometric Range of Motion Ankle and Foot bilat Ankle/Foot ROM WFL Yes PT-OP-M Strength Start: 02/09/21 09:18 Freq: Status: Active Protocol: Document 02/14/21 13:45 AW (Rec: 02/15/21 13:41 AW [email or web address]) Hip Strength Hip Manual Muscle Testing Right Flexion (L2) 3+ Fair+ Abduction 3+ Fair+ Comments Extension and rotation not tested due to precautions Left Flexion (L2) 4+ Good+ Extension (S1) 4 Good Abduction 4 Good External Rotation 4+ Good+ Internal Rotation 4+ Good+ Knee Strength Knee Manual Muscle Testing Right Flexion (S2) 4 Good Extension (L3) 4 Good Left Flexion (S2) 4+ Good+ Extension (L3) 5 Normal Ankle/Foot Strength Ankle and Foot Manual Muscle Testing bilat Dorsiflexion (L4) 5 Normal Plantarflexion (S1) 4 Good PT-OP-Q Treatments Start: 02/09/21 09:18 Freq: Status: Active Protocol: Document 02/14/21 13:45 AW (Rec: 02/14/21 17:52 AW [email or web address]) Therapeutic Exercises Supine Exercises heel slide Reps/Minutes x12 Comments increases groin pain quad sets Reps/Minutes 5SH x 12 glute sets Reps/Minutes 5SH x 12 Manual Therapy Treatment Soft Tissue Mobilization scar mobilization Body Location scar mobilization Mobilization Type Cross-Friction Intensity/Depth Superficial Comments instructed pt in cross friction scar mob for home PT-OP-T Assessment and Plan Start: 02/09/21 09:18 Freq: Status: Active Protocol: Document 02/14/21 13:45 AW (Rec: 02/15/21 13:44 AW [email or web address]) Physical Therapy Assessment Rehab Potential Rehabilitation Potential Good Evaluation Complexity Number of Personal Factors/Comorbidities 1-2 Number of Body Systems Impaired 1-2 Clinical Presentation at Evaluation Evolving Impairments Impairments Balance,Gait,Integument,Pain, Posture,ROM,Soft Tissue Mobility,Strength Goals Four Impairment gait Impairment Pt requires 3WW for household and community ambulation Short Term Goal (STG) Pt will ambulate 1000 feet on 6MWT with LRAD as a measure of decreased pain and increased self-efficacy in gait. STG Duration 03/21/21 Retirement Goal (LTG) Pt will ambulate 1250 feet on 6MWT without assistive device as a measure of decreased pain and increased self-efficacy in gait. LTG Duration 04/14/21 Three Impairment balance Short Term Goal (STG) Pt will improve SLS to 10 seconds or greater bilaterally to improve stability in gait. STG Duration 03/21/21 Retirement Goal (LTG) Pt will score 24 or greater on Functional Gait Assessment ( consistent with age-matched peers) as a measure of improved dynamic balance. LTG Duration 04/14/21 Two Impairment impaired right hip ROM Short Term Goal (STG) Pt will improve supine hip AROM (with knee flexed) to 100 degrees for improved safety with stair navigation STG Duration 03/21/21 Retirement Goal (LTG) Pt will improve supine hip AROM (with knee flexed) to 110 degrees or greater for ease with dressing tasks and other ADL's. LTG Duration 04/14/21 One Impairment lacks HEP Short Term Goal (STG) Pt will be instructed in progressive HEP for hip ROM, strength, and stability STG Duration 03/21/21 Record Searcher Goal (LTG) Pt will be independent with progressive HEP for hip ROM, strength, and stability to improve her gait quality and reduce risk of falls. LTG Duration 04/14/21 Assessment Summary Assessment Abby is 1 month s/p R SILVER with anterior approach. She presents to outpatient PT with complaints of limited right hip range of motion and strength. She reports anterior hip/groin pain that is relatively constant. She is using a 3WW for most ambulation. She is expected to benefit from skilled therapy to address strength, ROM, and balance for improved gait quality and to improve her ability to manage household tasks such as preparing for an upcoming international move. Physical Therapy Plan Frequency and Duration Frequency of Treatment 2x/Week Duration of Treatment 12 weeks Plan of Care Start Date 02/14/21 Plan of Care End Date 04/14/21 Therapeutic Interventions Therapeutic Interventions Aquatic Therapy,Balance Training,Gait Training,Home Exercise Program,Joint Mobilizations,Manual Therapy, Neuromuscular Re-education, Self-Care/Home Management,Soft Tissue Mobilization,Taping, Therapeutic Activities, Therapeutic Exercises Modalities Cold Pack/Ice Massage,Electric Stimulation,Hot Packs Next Visit Focus/Plan Next Note Type Treatment Note Next Visit Plan Review initial HEP and progress as able. Consider gait training with SPC. Modalities prn for pain management.
--- NOTE | 2021-02-14 17:29 | PT.OPPOC ---
Physical, Occupational & Speech Therapy At [facility] Current Diagnoses Unilateral primary osteoarthritis, right hip (02/14/21) Difficulty in walking, not elsewhere classified (02/14/21) Visit Care Team Role Provider Type Andre Louis MD Attending Provider Physician Family Provider Primary Care Provider Referring Provider Specialty: Family Practice Address: [address] [place] [address], [facility] Email: [email or web address] Plan Of Care PT-OP-T Assessment and Plan Start: 02/09/21 09:18 Freq: Status: Active Protocol: Document 02/14/21 13:45 AW (Rec: 02/15/21 13:44 AW [email or web address]) Physical Therapy Assessment Rehab Potential Rehabilitation Potential Good Evaluation Complexity Number of Personal Factors/Comorbidities 1-2 Number of Body Systems Impaired 1-2 Clinical Presentation at Evaluation Evolving Impairments Impairments Balance,Gait,Integument,Pain, Posture,ROM,Soft Tissue Mobility,Strength Goals Four Impairment gait Impairment Pt requires 3WW for household and community ambulation Short Term Goal (STG) Pt will ambulate 1000 feet on 6MWT with LRAD as a measure of decreased pain and increased self-efficacy in gait. STG Duration 03/21/21 Vp Transportation Goal (LTG) Pt will ambulate 1250 feet on 6MWT without assistive device as a measure of decreased pain and increased self-efficacy in gait. LTG Duration 04/14/21 Three Impairment balance Short Term Goal (STG) Pt will improve SLS to 10 seconds or greater bilaterally to improve stability in gait. STG Duration 03/21/21 Mcc Goal (LTG) Pt will score 24 or greater on Functional Gait Assessment ( consistent with age-matched peers) as a measure of improved dynamic balance. LTG Duration 04/14/21 Two Impairment impaired right hip ROM Short Term Goal (STG) Pt will improve supine hip AROM (with knee flexed) to 100 degrees for improved safety with stair navigation STG Duration 03/21/21 Mcc Goal (LTG) Pt will improve supine hip AROM (with knee flexed) to 110 degrees or greater for ease with dressing tasks and other ADL's. LTG Duration 04/14/21 One Impairment lacks HEP Short Term Goal (STG) Pt will be instructed in progressive HEP for hip ROM, strength, and stability STG Duration 03/21/21 Mcc Goal (LTG) Pt will be independent with progressive HEP for hip ROM, strength, and stability to improve her gait quality and reduce risk of falls. LTG Duration 04/14/21 Assessment Summary Assessment Abyb is 1 month s/p R SILVER with anterior approach. She presents to outpatient PT with complaints of limited right hip range of motion and strength. She reports anterior hip/groin pain that is relatively constant. She is using a 3WW for most ambulation. She is expected to benefit from skilled therapy to address strength, ROM, and balance for improved gait quality and to improve her ability to manage household tasks such as preparing for an upcoming international move. Physical Therapy Plan Frequency and Duration Frequency of Treatment 2x/Week Duration of Treatment 12 weeks Plan of Care Start Date 02/14/21 Plan of Care End Date 04/14/21 Therapeutic Interventions Therapeutic Interventions Aquatic Therapy,Balance Training,Gait Training,Home Exercise Program,Joint Mobilizations,Manual Therapy, Neuromuscular Re-education, Self-Care/Home Management,Soft Tissue Mobilization,Taping, Therapeutic Activities, Therapeutic Exercises Modalities Cold Pack/Ice Massage,Electric Stimulation,Hot Packs Next Visit Focus/Plan Next Note Type Treatment Note Next Visit Plan Review initial HEP and progress as able. Consider gait training with SPC. Modalities prn for pain management. Plan of Care Dates Plan of Care Start Date 02/14/21 Plan of Care End Date 04/14/21 Electronically Signed by: Katie Alcantara, PT 02/15/21 [id number] Please Sign and Return: I have reviewed this Plan of Care and certify that the skilled therapy services above are required to meet the patient?s needs. Physician Signature Date Printed Name and Credentials Clinical Instructor Signature Printed Name and Credentials
--- NOTE | 2021-02-16 15:47 | PT.OTN ---
Current Diagnoses Unilateral primary osteoarthritis, right hip (02/16/21) Difficulty in walking, not elsewhere classified (02/16/21) Physical Therapy Treatment Note PT-OP-A Visit Information Start: 02/09/21 09:18 Freq: Status: Active Protocol: Document 02/16/21 13:02 AW (Rec: 02/16/21 13:49 AW [id number]) Out-Patient Physical Therapy Visit Information Visit Information Visit Type Treatment Note Visit Start Time 13:00 Visit Stop Time 13:45 Total Visit Minutes 45 Visit Number 2 Number of EMBEDDED SOFTWARE DEVELOPMENT ENGINEER Visits 0 Evaluation Information Evaluation Date 02/14/21 Precautions Precautions Anterior hip precautions. Osteoporosis. PT-OP-B Current Condition Start: 02/09/21 09:18 Freq: Status: Active Protocol: Document 02/14/21 13:45 AW (Rec: 02/09/21 09:26 AW [email or web address]) Current Condition History of Current Condition Onset Date 01/11/21 Current Complaints R hip pain s/p 01/11/21 R SILVER with anterior approach History of Current Condition Pt had R anterior SILVER on 01/11. She continues to have pain which is largely localized at her groin. Her surgical site is still very sore although swelling has decreased. She is using 3WW at all times but will take steps without it if she can cruise a countertop. She is not taking pain medication other than occasional ibuprofen. Her pain is sharp. She used cold initially but no longer. Pt has been doing glute sets, quad sets, and heel slides daily but reports that it hurts afterward. PMH includes levoscoliosis, low back pain, hypothyroid, L2-3 L3-4 medial branch rhizotomy 07/28/2019 with no relief. PMH also significant for bronchiolo- alveolar carcinoma and osteoporosis. Pt reports she and her spouse are moving to [place] in May 2021. Prior Treatments and Tests - Referral from LOUIE Mccabe: 01/24 - initiate gait training and work on pelvic imbalance. Avoid stretching until Future Testing and Treatments Planned None identified. Treatment Goals Patient/Caregiver Goals Walk without assistive device. Be able to manage preparation for moving with less pain. Return to yoga, pilates. Squat without pain. Prior Functional Status Baseline Function- Gait Independent without AD Current Functional Impairments (Reported) Functional Limitations- Mobility/Gait Pt needs 3WW for ambulation and is limited to household or short community distances. PT-OP-C Subjective Start: 02/09/21 09:18 Freq: Status: Active Protocol: Document 02/16/21 13:02 AW (Rec: 02/16/21 13:49 AW [id number]) OP-PT Subjective Patient Comments Patient Comments I went to [place] and did a lot of working yesterday so I' m sore today. PT-OP-D Balance Start: 02/09/21 09:18 Freq: Status: Active Protocol: Document 02/14/21 13:45 AW (Rec: 02/15/21 13:33 AW [email or web address]) Balance Tests Single Limb Standing Single Limb- Right unable Single Limb- Left 10 sec with fingertip support on wall PT-OP-E Functional Tests Start: 02/09/21 09:18 Freq: Status: Active Protocol: Document 02/14/21 13:45 AW (Rec: 02/15/21 13:46 AW [email or web address]) Functional Tests 6 Minute Walk Test Distance 840 feet Device Used 3WW Comments 0.7 m/s average speed with consistent split times PT-OP-F Manual Assessment Start: 02/09/21 09:18 Freq: Status: Active Protocol: Document 02/14/21 13:45 AW (Rec: 02/15/21 13:33 AW [email or web address]) Manual Assessments Soft Tissue Assessment Soft Tissue Mobility Assessment Increased tone in right groin/ adductors. Surgical scar is well-healed but with decreased mobility. PT-OP-G Mobility & Gait Start: 02/09/21 09:18 Freq: Status: Active Protocol: Document 02/14/21 13:45 AW (Rec: 02/15/21 13:33 AW [email or web address]) OP Mobility Evaluation Functional Movements Squats unable past 80 degrees due to pain OP Gait Assessment Comments Gait Comments Antalgic gait with need for walker. Pt currently using 3WW PT-OP-K Range of Motion Start: 02/09/21 09:18 Freq: Status: Active Protocol: Document 02/14/21 13:45 AW (Rec: 02/15/21 13:41 AW [email or web address]) Hip Goniometric Range of Motion Hip Right Hip ROM WFL No Testing Position Supine Flexion w/Knee Flexed 80 Comments PROM to 90 with report of pain Left Hip ROM WFL Yes Testing Position Supine Flexion w/Knee Flexed 110 Straight Leg Raise 85 Comments PROM to 125 without pain Hip ROM Limitations Hip ROM Limitations Pain Knee Goniometric Range of Motion Knee bilat Knee ROM WFL Yes Ankle and Foot Goniometric Range of Motion Ankle and Foot bilat Ankle/Foot ROM WFL Yes PT-OP-M Strength Start: 02/09/21 09:18 Freq: Status: Active Protocol: Document 02/14/21 13:45 AW (Rec: 02/15/21 13:41 AW [email or web address]) Hip Strength Hip Manual Muscle Testing Right Flexion (L2) 3+ Fair+ Abduction 3+ Fair+ Comments Extension and rotation not tested due to precautions Left Flexion (L2) 4+ Good+ Extension (S1) 4 Good Abduction 4 Good External Rotation 4+ Good+ Internal Rotation 4+ Good+ Knee Strength Knee Manual Muscle Testing Right Flexion (S2) 4 Good Extension (L3) 4 Good Left Flexion (S2) 4+ Good+ Extension (L3) 5 Normal Ankle/Foot Strength Ankle and Foot Manual Muscle Testing bilat Dorsiflexion (L4) 5 Normal Plantarflexion (S1) 4 Good PT-OP-Q Treatments Start: 02/09/21 09:18 Freq: Status: Active Protocol: Document 02/16/21 13:02 AW (Rec: 02/16/21 13:49 AW [id number]) Therapeutic Exercises Supine Exercises core stab/TA Supine Exercise Name core stab/TA Resistance w/ alternating hip flexor march Reps/Minutes 8 reps x 2 bridge Supine Exercise Name bridge Reps/Minutes 10 x 2 heel slide Resistance AROM and AAROM Reps/Minutes 1 min x 3 Comments no increase in groin pain today Gait Training Gait Activity gait with SPC Description gait with SPC Device Used SPC Level of Assistance SBA>CGA Surface tile, carpet Distance/Duration 100' x 4 Treatment Focus patterning, stability Comments Pt initially set SPC too close to LLE. Educated pt to set cane slightly farther out to increase PHIL and improve stability. Added for HEP. Pt's cane slightly too tall. Measured in clinic and recommended height of 30. Pt agrees to acquire new cane and practice at home. Manual Therapy Treatment Soft Tissue Mobilization TFL/IT band Body Location TFL/IT band Mobilization Type Strumming,Sustained Pressure Intensity/Depth Moderate Body Position Sidelying scar mobilization Body Location scar mobilization Mobilization Type Cross-Friction Intensity/Depth Superficial Comments continued instruction pt in cross friction scar mob for home PT-OP-T Assessment and Plan Start: 02/09/21 09:18 Freq: Status: Active Protocol: Document 02/16/21 13:45 AW (Rec: 02/16/21 15:46 AW [email or web address]) Physical Therapy Assessment Goals Four Impairment gait Impairment Pt requires 3WW for household and community ambulation Short Term Goal (STG) Pt will ambulate 1000 feet on 6MWT with LRAD as a measure of decreased pain and increased self-efficacy in gait. STG Duration 03/21/21 Senior Care Goal (LTG) Pt will ambulate 1250 feet on 6MWT without assistive device as a measure of decreased pain and increased self-efficacy in gait. LTG Duration 04/14/21 Three Impairment balance Short Term Goal (STG) Pt will improve SLS to 10 seconds or greater bilaterally to improve stability in gait. STG Duration 03/21/21 Senior Care Goal (LTG) Pt will score 24 or greater on Functional Gait Assessment ( consistent with age-matched peers) as a measure of improved dynamic balance. LTG Duration 04/14/21 Two Impairment impaired right hip ROM Short Term Goal (STG) Pt will improve supine hip AROM (with knee flexed) to 100 degrees for improved safety with stair navigation STG Duration 03/21/21 Senior Care Goal (LTG) Pt will improve supine hip AROM (with knee flexed) to 110 degrees or greater for ease with dressing tasks and other ADL's. LTG Duration 04/14/21 One Impairment lacks HEP Short Term Goal (STG) Pt will be instructed in progressive HEP for hip ROM, strength, and stability STG Duration 03/21/21 Senior Care Goal (LTG) Pt will be independent with progressive HEP for hip ROM, strength, and stability to improve her gait quality and reduce risk of falls. LTG Duration 04/14/21 Assessment Summary Assessment Abby tolerated gait training with SPC today, exhibiting improved posture and weightbearing but with slower gait speed. Pt brought her own cane which only reduced to 32 .5 which was too tall. Measured and recommended 30 cane height for pt who agreed to acquire another. Continued with scar mobilization, PT- assisted AAROM. Progressed HEP by adding small range bridge. Pt has good awareness of pelvic position in supine and is able to perform alternating supine march with good core control. Physical Therapy Plan Frequency and Duration Frequency of Treatment 2x/Week Duration of Treatment 12 weeks Plan of Care Start Date 02/14/21 Plan of Care End Date 04/14/21 Therapeutic Interventions Therapeutic Interventions Aquatic Therapy,Balance Training,Gait Training,Home Exercise Program,Joint Mobilizations,Manual Therapy, Neuromuscular Re-education, Self-Care/Home Management,Soft Tissue Mobilization,Taping, Therapeutic Activities, Therapeutic Exercises Modalities Cold Pack/Ice Massage,Electric Stimulation,Hot Packs Next Visit Focus/Plan Next Note Type Treatment Note Next Visit Plan Progress HEP for core stab and hip ROM; Gait training with SPC. Consider A/P and lateral weight shifting with SPC as pre-gait activities.
--- NOTE | 2021-02-20 13:19 | PT-OP ANOTE ---
Pt called, left message on 02/19 to cancel 02/20 and 02/22 appts. HOOKER INSPECTOR called pt and she has a [facility] service to attend, comfirmed next appt on 02/28.
--- NOTE | 2021-03-02 14:08 | PT.OTN ---
Current Diagnoses Unilateral primary osteoarthritis, right hip (03/02/21) Difficulty in walking, not elsewhere classified (03/02/21) Physical Therapy Treatment Note PT-OP-A Visit Information Start: 02/09/21 09:18 Freq: Status: Active Protocol: Document 03/02/21 13:45 AW (Rec: 03/02/21 14:08 AW [id number]) Out-Patient Physical Therapy Visit Information Visit Information Visit Type Treatment Note Visit Start Time 13:02 Visit Stop Time 13:45 Total Visit Minutes 43 Visit Number 3 Number of GREEN CHAIN WORKER Visits 0 Evaluation Information Evaluation Date 02/14/21 Precautions Precautions Anterior hip precautions. Osteoporosis. PT-OP-B Current Condition Start: 02/09/21 09:18 Freq: Status: Active Protocol: Document 02/14/21 13:45 AW (Rec: 02/09/21 09:26 AW [email or web address]) Current Condition History of Current Condition Onset Date 01/11/21 Current Complaints R hip pain s/p 01/11/21 R SILVER with anterior approach History of Current Condition Pt had R anterior SILVER on 01/11. She continues to have pain which is largely localized at her groin. Her surgical site is still very sore although swelling has decreased. She is using 3WW at all times but will take steps without it if she can cruise a countertop. She is not taking pain medication other than occasional ibuprofen. Her pain is sharp. She used cold initially but no longer. Pt has been doing glute sets, quad sets, and heel slides daily but reports that it hurts afterward. PMH includes levoscoliosis, low back pain, hypothyroid, L2-3 L3-4 medial branch rhizotomy 07/28/2019 with no relief. PMH also significant for bronchiolo- alveolar carcinoma and osteoporosis. Pt reports she and her spouse are moving to [place] in May 2021. Prior Treatments and Tests - Referral from LOUIE Mccabe: 01/24 - initiate gait training and work on pelvic imbalance. Avoid stretching until Future Testing and Treatments Planned None identified. Treatment Goals Patient/Caregiver Goals Walk without assistive device. Be able to manage preparation for moving with less pain. Return to yoga, pilates. Squat without pain. Prior Functional Status Baseline Function- Gait Independent without AD Current Functional Impairments (Reported) Functional Limitations- Mobility/Gait Pt needs 3WW for ambulation and is limited to household or short community distances. PT-OP-C Subjective Start: 02/09/21 09:18 Freq: Status: Active Protocol: Document 03/02/21 13:45 AW (Rec: 03/02/21 14:08 AW [id number]) OP-PT Subjective Patient Comments Patient Comments I was sleeping last night as I usually do with a pillow between my knees and woke up with hip pain. I had to get up and take Tylenol. That hasn't been happening much lately. PT-OP-D Balance Start: 02/09/21 09:18 Freq: Status: Active Protocol: Document 02/14/21 13:45 AW (Rec: 02/15/21 13:33 AW [email or web address]) Balance Tests Single Limb Standing Single Limb- Right unable Single Limb- Left 10 sec with fingertip support on wall PT-OP-E Functional Tests Start: 02/09/21 09:18 Freq: Status: Active Protocol: Document 02/14/21 13:45 AW (Rec: 02/15/21 13:46 AW [email or web address]) Functional Tests 6 Minute Walk Test Distance 840 feet Device Used 3WW Comments 0.7 m/s average speed with consistent split times PT-OP-F Manual Assessment Start: 02/09/21 09:18 Freq: Status: Active Protocol: Document 02/14/21 13:45 AW (Rec: 02/15/21 13:33 AW [email or web address]) Manual Assessments Soft Tissue Assessment Soft Tissue Mobility Assessment Increased tone in right groin/ adductors. Surgical scar is well-healed but with decreased mobility. PT-OP-G Mobility & Gait Start: 02/09/21 09:18 Freq: Status: Active Protocol: Document 02/14/21 13:45 AW (Rec: 02/15/21 13:33 AW [email or web address]) OP Mobility Evaluation Functional Movements Squats unable past 80 degrees due to pain OP Gait Assessment Comments Gait Comments Antalgic gait with need for walker. Pt currently using 3WW PT-OP-K Range of Motion Start: 02/09/21 09:18 Freq: Status: Active Protocol: Document 02/14/21 13:45 AW (Rec: 02/15/21 13:41 AW [email or web address]) Hip Goniometric Range of Motion Hip Right Hip ROM WFL No Testing Position Supine Flexion w/Knee Flexed 80 Comments PROM to 90 with report of pain Left Hip ROM WFL Yes Testing Position Supine Flexion w/Knee Flexed 110 Straight Leg Raise 85 Comments PROM to 125 without pain Hip ROM Limitations Hip ROM Limitations Pain Knee Goniometric Range of Motion Knee bilat Knee ROM WFL Yes Ankle and Foot Goniometric Range of Motion Ankle and Foot bilat Ankle/Foot ROM WFL Yes PT-OP-M Strength Start: 02/09/21 09:18 Freq: Status: Active Protocol: Document 02/14/21 13:45 AW (Rec: 02/15/21 13:41 AW [email or web address]) Hip Strength Hip Manual Muscle Testing Right Flexion (L2) 3+ Fair+ Abduction 3+ Fair+ Comments Extension and rotation not tested due to precautions Left Flexion (L2) 4+ Good+ Extension (S1) 4 Good Abduction 4 Good External Rotation 4+ Good+ Internal Rotation 4+ Good+ Knee Strength Knee Manual Muscle Testing Right Flexion (S2) 4 Good Extension (L3) 4 Good Left Flexion (S2) 4+ Good+ Extension (L3) 5 Normal Ankle/Foot Strength Ankle and Foot Manual Muscle Testing bilat Dorsiflexion (L4) 5 Normal Plantarflexion (S1) 4 Good PT-OP-Q Treatments Start: 02/09/21 09:18 Freq: Status: Active Protocol: Document 03/02/21 13:45 AW (Rec: 03/02/21 14:08 AW [id number]) Therapeutic Exercises Supine Exercises core stab/TA Supine Exercise Name core stab/TA Resistance w/ alternating hip flexor march - up up/down down Reps/Minutes 8 reps x 2 Comments good awareness of pelvic tilt bridge Supine Exercise Name bridge Reps/Minutes 5SH x 12 Comments good elevation Sidelying Exercises hip abduction Sidelying Exercise Name hip abduction Side bilateral Resistance AROM Reps/Minutes x15 Comments HEP clam Sidelying Exercise Name clam Side bilateral Resistance AROM Reps/Minutes 2x15 Comments HEP Standing Exercises step up Standing Exercise Name step up - fwd and lateral Side right Equipment Used 6 step in // for prn support Reps/Minutes x10 each direction Comments clinic only hip abduction Standing Exercise Name hip abduction, lateral stepping Side bilateral Resistance AROM Other Exercises sit to stand Other Exercise Name sit to stand Resistance no UE support - hands in front Equipment Used 20 mat, 18 mat Reps/Minutes x10 from each height Comments good weight shift; HEP Gait Training Gait Activity stairs Description stairs Device Used SPC + uni rail --> uni rail Level of Assistance SBA Surface 6 steps Distance/Duration 4 stairs x 8 Comments - SPC + rail step-to pattern - uni rail step-to - uni rail reciprocal x 3 reps gait with SPC Description gait without AD Level of Assistance SBA Surface tile, carpet Distance/Duration 100' x 3 Treatment Focus weightbearing RLE, equal stance time Comments Pt anxious at first but gained confidence with distance. Complains of increased R hip and L knee pain without device but has no significant gait deviations other than decreased RLE stance time and tendency for L knee to cave inward in WB. Self-Care/Home Management Treatment Education Patient Education Home Exercise Program Other Education Added clam, SL hip abd, and sit to stand for HEP. Asked pt to wear shorts under pants next visit for scar mobilization. PT-OP-T Assessment and Plan Start: 02/09/21 09:18 Freq: Status: Active Protocol: Document 03/02/21 13:45 AW (Rec: 03/02/21 14:08 AW [id number]) Physical Therapy Assessment Goals Four Impairment gait Impairment Pt requires 3WW for household and community ambulation Short Term Goal (STG) Pt will ambulate 1000 feet on 6MWT with LRAD as a measure of decreased pain and increased self-efficacy in gait. STG Duration 03/21/21 Recreation Specialist Goal (LTG) Pt will ambulate 1250 feet on 6MWT without assistive device as a measure of decreased pain and increased self-efficacy in gait. LTG Duration 04/14/21 Three Impairment balance Short Term Goal (STG) Pt will improve SLS to 10 seconds or greater bilaterally to improve stability in gait. STG Duration 03/21/21 Alf Goal (LTG) Pt will score 24 or greater on Functional Gait Assessment ( consistent with age-matched peers) as a measure of improved dynamic balance. LTG Duration 04/14/21 Two Impairment impaired right hip ROM Short Term Goal (STG) Pt will improve supine hip AROM (with knee flexed) to 100 degrees for improved safety with stair navigation STG Duration 03/21/21 Recreation Specialist Goal (LTG) Pt will improve supine hip AROM (with knee flexed) to 110 degrees or greater for ease with dressing tasks and other ADL's. LTG Duration 04/14/21 One Impairment lacks HEP Short Term Goal (STG) Pt will be instructed in progressive HEP for hip ROM, strength, and stability STG Duration 03/21/21 Alf Goal (LTG) Pt will be independent with progressive HEP for hip ROM, strength, and stability to improve her gait quality and reduce risk of falls. LTG Duration 04/14/21 Assessment Summary Assessment Abby's pain is now more concentrated around her surgical site. She no longer has groin pain but continues to report average pain level of ~5/10. She is walking at home with SPC ~90% of the time She still uses her walker for longer distances or if she is feeling fatigued. She complains of left knee pain and does have knee valgus in weightbearing. Physical Therapy Plan Frequency and Duration Frequency of Treatment 2x/Week Duration of Treatment 12 weeks Plan of Care Start Date 02/14/21 Plan of Care End Date 04/14/21 Therapeutic Interventions Therapeutic Interventions Aquatic Therapy,Balance Training,Gait Training,Home Exercise Program,Joint Mobilizations,Manual Therapy, Neuromuscular Re-education, Self-Care/Home Management,Soft Tissue Mobilization,Taping, Therapeutic Activities, Therapeutic Exercises Modalities Cold Pack/Ice Massage,Electric Stimulation,Hot Packs Next Visit Focus/Plan Next Note Type Treatment Note Next Visit Plan Progress HEP for core stab and hip ROM/strength within precautions. Gait training with no AD. Scar mobilization. Consider initiating balance interventions.
--- NOTE | 2021-03-06 13:07 | PT.OTN ---
Current Diagnoses Unilateral primary osteoarthritis, right hip (03/06/21) Difficulty in walking, not elsewhere classified (03/06/21) Physical Therapy Treatment Note PT-OP-A Visit Information Start: 02/09/21 09:18 Freq: Status: Active Protocol: Document 03/06/21 12:15 SP (Rec: 03/06/21 13:07 SP [id number]) Out-Patient Physical Therapy Visit Information Visit Information Visit Type Treatment Note Visit Start Time 12:15 Visit Stop Time 13:07 Total Visit Minutes 52 Visit Number 4 Number of [employer] COMPRESSOR Visits 1 Evaluation Information Evaluation Date 02/14/21 Precautions Precautions Anterior hip precautions. Osteoporosis. PT-OP-B Current Condition Start: 02/09/21 09:18 Freq: Status: Active Protocol: Document 02/14/21 13:45 AW (Rec: 02/09/21 09:26 AW [email or web address]) Current Condition History of Current Condition Onset Date 01/11/21 Current Complaints R hip pain s/p 01/11/21 R SILVER with anterior approach History of Current Condition Pt had R anterior SILVER on 01/11. She continues to have pain which is largely localized at her groin. Her surgical site is still very sore although swelling has decreased. She is using 3WW at all times but will take steps without it if she can cruise a countertop. She is not taking pain medication other than occasional ibuprofen. Her pain is sharp. She used cold initially but no longer. Pt has been doing glute sets, quad sets, and heel slides daily but reports that it hurts afterward. PMH includes levoscoliosis, low back pain, hypothyroid, L2-3 L3-4 medial branch rhizotomy 07/28/2019 with no relief. PMH also significant for bronchiolo- alveolar carcinoma and osteoporosis. Pt reports she and her spouse are moving to [place] in May 2021. Prior Treatments and Tests - Referral from LOUIE Mccabe: 01/24 - initiate gait training and work on pelvic imbalance. Avoid stretching until Future Testing and Treatments Planned None identified. Treatment Goals Patient/Caregiver Goals Walk without assistive device. Be able to manage preparation for moving with less pain. Return to yoga, pilates. Squat without pain. Prior Functional Status Baseline Function- Gait Independent without AD Current Functional Impairments (Reported) Functional Limitations- Mobility/Gait Pt needs 3WW for ambulation and is limited to household or short community distances. PT-OP-C Subjective Start: 02/09/21 09:18 Freq: Status: Active Protocol: Document 03/06/21 12:15 SP (Rec: 03/06/21 13:07 SP [id number]) OP-PT Subjective Patient Comments Patient Comments Pt reported not having groin pain anymore. She stated she had better balance on , thought maybe the Celebrex she took helped. She was going to take again today and see. Is compliant with HEP with no concerns. PT-OP-D Balance Start: 02/09/21 09:18 Freq: Status: Active Protocol: Document 02/14/21 13:45 AW (Rec: 02/15/21 13:33 AW [email or web address]) Balance Tests Single Limb Standing Single Limb- Right unable Single Limb- Left 10 sec with fingertip support on wall PT-OP-E Functional Tests Start: 02/09/21 09:18 Freq: Status: Active Protocol: Document 02/14/21 13:45 AW (Rec: 02/15/21 13:46 AW [email or web address]) Functional Tests 6 Minute Walk Test Distance 840 feet Device Used 3WW Comments 0.7 m/s average speed with consistent split times PT-OP-F Manual Assessment Start: 02/09/21 09:18 Freq: Status: Active Protocol: Document 02/14/21 13:45 AW (Rec: 02/15/21 13:33 AW [email or web address]) Manual Assessments Soft Tissue Assessment Soft Tissue Mobility Assessment Increased tone in right groin/ adductors. Surgical scar is well-healed but with decreased mobility. PT-OP-G Mobility & Gait Start: 02/09/21 09:18 Freq: Status: Active Protocol: Document 02/14/21 13:45 AW (Rec: 02/15/21 13:33 AW [email or web address]) OP Mobility Evaluation Functional Movements Squats unable past 80 degrees due to pain OP Gait Assessment Comments Gait Comments Antalgic gait with need for walker. Pt currently using 3WW PT-OP-K Range of Motion Start: 02/09/21 09:18 Freq: Status: Active Protocol: Document 02/14/21 13:45 AW (Rec: 02/15/21 13:41 AW [email or web address]) Hip Goniometric Range of Motion Hip Right Hip ROM WFL No Testing Position Supine Flexion w/Knee Flexed 80 Comments PROM to 90 with report of pain Left Hip ROM WFL Yes Testing Position Supine Flexion w/Knee Flexed 110 Straight Leg Raise 85 Comments PROM to 125 without pain Hip ROM Limitations Hip ROM Limitations Pain Knee Goniometric Range of Motion Knee bilat Knee ROM WFL Yes Ankle and Foot Goniometric Range of Motion Ankle and Foot bilat Ankle/Foot ROM WFL Yes PT-OP-M Strength Start: 02/09/21 09:18 Freq: Status: Active Protocol: Document 02/14/21 13:45 AW (Rec: 02/15/21 13:41 AW [email or web address]) Hip Strength Hip Manual Muscle Testing Right Flexion (L2) 3+ Fair+ Abduction 3+ Fair+ Comments Extension and rotation not tested due to precautions Left Flexion (L2) 4+ Good+ Extension (S1) 4 Good Abduction 4 Good External Rotation 4+ Good+ Internal Rotation 4+ Good+ Knee Strength Knee Manual Muscle Testing Right Flexion (S2) 4 Good Extension (L3) 4 Good Left Flexion (S2) 4+ Good+ Extension (L3) 5 Normal Ankle/Foot Strength Ankle and Foot Manual Muscle Testing bilat Dorsiflexion (L4) 5 Normal Plantarflexion (S1) 4 Good PT-OP-Q Treatments Start: 02/09/21 09:18 Freq: Status: Active Protocol: Document 03/06/21 12:15 SP (Rec: 03/06/21 13:07 SP [id number]) Therapeutic Exercises Supine Exercises core stab/TA Supine Exercise Name core stab/TA Resistance w/ alternating hip flexor may - up up/down down (90/90 ) Reps/Minutes 8 reps x 2 Comments good awareness of pelvic tilt bridge Supine Exercise Name bridge Resistance AROM Reps/Minutes 5SH x 12 (HEP, completed 5 reps today review) Comments good elevation heel slide Supine Exercise Name easy so DC Resistance AROM and AAROM Reps/Minutes 1 min x 3 Comments no groin pain today- easy, quad sets Supine Exercise Name easy DC glute sets Supine Exercise Name easy DC Sidelying Exercises hip abduction Sidelying Exercise Name hip abduction Side bilateral Resistance AROM Reps/Minutes x15 Comments HEP clam Sidelying Exercise Name clam Side bilateral Resistance AROM Reps/Minutes 2x15 Comments HEP Other Exercises self STMs Other Exercise Name rolling pin to quad: roling/ rocking, racquetball onwall to paraspinals/glu Side right Comments good response-sensitive but with tolerant pressure, helps relax tight quad sit to stand Other Exercise Name sit to stand Resistance no UE support - hands in front Equipment Used 18 chair Reps/Minutes 10 reps in 30 sec Comments good weight shift; HEP Manual Therapy Treatment Soft Tissue Mobilization TFL/IT band Body Location TFL/IT band Mobilization Type Strumming,Sustained Pressure Intensity/Depth Moderate Body Position Hooklying Comments manual, instructed rolling pin and racquetball on wall. scar mobilization Body Location scar mobilization Mobilization Type Cross-Friction Intensity/Depth Superficial Comments continued instruction pt in cross friction scar mob for home multidirectional PT-OP-T Assessment and Plan Start: 02/09/21 09:18 Freq: Status: Active Protocol: Document 03/06/21 12:15 SP (Rec: 03/06/21 13:07 SP [id number]) Physical Therapy Assessment Goals Four Impairment gait Impairment Pt requires 3WW for household and community ambulation Short Term Goal (STG) Pt will ambulate 1000 feet on 6MWT with LRAD as a measure of decreased pain and increased self-efficacy in gait. STG Duration 03/21/21 Fdc Goal (LTG) Pt will ambulate 1250 feet on 6MWT without assistive device as a measure of decreased pain and increased self-efficacy in gait. LTG Duration 04/14/21 Three Impairment balance Short Term Goal (STG) Pt will improve SLS to 10 seconds or greater bilaterally to improve stability in gait. STG Duration 03/21/21 Fdc Goal (LTG) Pt will score 24 or greater on Functional Gait Assessment ( consistent with age-matched peers) as a measure of improved dynamic balance. LTG Duration 04/14/21 Two Impairment impaired right hip ROM Short Term Goal (STG) Pt will improve supine hip AROM (with knee flexed) to 100 degrees for improved safety with stair navigation STG Duration 03/21/21 Fdc Goal (LTG) Pt will improve supine hip AROM (with knee flexed) to 110 degrees or greater for ease with dressing tasks and other ADL's. LTG Duration 04/14/21 One Impairment lacks HEP Short Term Goal (STG) Pt will be instructed in progressive HEP for hip ROM, strength, and stability STG Duration 03/21/21 Fdc Goal (LTG) Pt will be independent with progressive HEP for hip ROM, strength, and stability to improve her gait quality and reduce risk of falls. LTG Duration 04/14/21 Assessment Summary Assessment Extra time spent with manual and instruction self scar mobility and use of rolling pin rolling with musculature and see saw rocking, racquetball on wall for self STMs with good feedback very helpful. Pt able to complete 10 reps STS in 30 sec without UE support painfree. Pt good understanding core and hip abd strengthening HEP with importance manual flexibility at surgery site was able to perform HEP review without pain, just tiring work today . Physical Therapy Plan Frequency and Duration Frequency of Treatment 2x/Week Duration of Treatment 12 weeks Plan of Care Start Date 02/14/21 Plan of Care End Date 04/14/21 Therapeutic Interventions Therapeutic Interventions Aquatic Therapy,Balance Training,Gait Training,Home Exercise Program,Joint Mobilizations,Manual Therapy, Neuromuscular Re-education, Self-Care/Home Management,Soft Tissue Mobilization,Taping, Therapeutic Activities, Therapeutic Exercises Modalities Cold Pack/Ice Massage,Electric Stimulation,Hot Packs Next Visit Focus/Plan Next Note Type Treatment Note Next Visit Plan Assess response to manual/ rolling pin/ racquetball STMs to R quad last tx. POC: Progress HEP for core stab and hip ROM/strength within precautions. Gait training with no AD. Scar mobilization as needed. Consider initiating balance interventions.
--- NOTE | 2021-03-14 14:35 | PT.OTN ---
Current Diagnoses Unilateral primary osteoarthritis, right hip (03/14/21) Difficulty in walking, not elsewhere classified (03/14/21) Physical Therapy Treatment Note PT-OP-A Visit Information Start: 02/09/21 09:18 Freq: Status: Active Protocol: Document 03/14/21 14:25 [facility] (Rec: 03/14/21 16:16 [facility] [id number]) Out-Patient Physical Therapy Visit Information Visit Information Visit Type Treatment Note Visit Start Time 14:30 Visit Stop Time 15:15 Total Visit Minutes 45 Visit Number 5 Number of SUPER[employer]OR SPRING UP Visits 0 PT-OP-B Current Condition Start: 02/09/21 09:18 Freq: Status: Active Protocol: Document 02/14/21 13:45 AW (Rec: 02/09/21 09:26 AW [email or web address]) Current Condition History of Current Condition Onset Date 01/11/21 Current Complaints R hip pain s/p 01/11/21 R SILVER with anterior approach History of Current Condition Pt had R anterior SILVER on 01/11. She continues to have pain which is largely localized at her groin. Her surgical site is still very sore although swelling has decreased. She is using 3WW at all times but will take steps without it if she can cruise a countertop. She is not taking pain medication other than occasional ibuprofen. Her pain is sharp. She used cold initially but no longer. Pt has been doing glute sets, quad sets, and heel slides daily but reports that it hurts afterward. PMH includes levoscoliosis, low back pain, hypothyroid, L2-3 L3-4 medial branch rhizotomy 07/28/2019 with no relief. PMH also significant for bronchiolo- alveolar carcinoma and osteoporosis. Pt reports she and her spouse are moving to [facility] in May 2021. Prior Treatments and Tests - Referral from LOUIE Mccabe: 01/24 - initiate gait training and work on pelvic imbalance. Avoid stretching until Future Testing and Treatments Planned None identified. Treatment Goals Patient/Caregiver Goals Walk without assistive device. Be able to manage preparation for moving with less pain. Return to yoga, pilates. Squat without pain. Prior Functional Status Baseline Function- Gait Independent without AD Current Functional Impairments (Reported) Functional Limitations- Mobility/Gait Pt needs 3WW for ambulation and is limited to household or short community distances. PT-OP-C Subjective Start: 02/09/21 09:18 Freq: Status: Active Protocol: Document 03/14/21 14:25 [facility] (Rec: 03/14/21 16:16 [facility] [id number]) OP-PT Subjective Patient Comments Patient Comments pt ambulates into PT with her SPC, she notes she is doing better over all, she did feel a little bit of growning pain when lifting her leg yesterday but it was short lived. She hasn't been doing a lot of stairs but did do a flight yesterday and was able to manage them with her cane PT-OP-D Balance Start: 02/09/21 09:18 Freq: Status: Active Protocol: Document 02/14/21 13:45 AW (Rec: 02/15/21 13:33 AW [email or web address]) Balance Tests Single Limb Standing Single Limb- Right unable Single Limb- Left 10 sec with fingertip support on wall PT-OP-E Functional Tests Start: 02/09/21 09:18 Freq: Status: Active Protocol: Document 02/14/21 13:45 AW (Rec: 02/15/21 13:46 AW [email or web address]) Functional Tests 6 Minute Walk Test Distance 840 feet Device Used 3WW Comments 0.7 m/s average speed with consistent split times PT-OP-F Manual Assessment Start: 02/09/21 09:18 Freq: Status: Active Protocol: Document 02/14/21 13:45 AW (Rec: 02/15/21 13:33 AW [email or web address]) Manual Assessments Soft Tissue Assessment Soft Tissue Mobility Assessment Increased tone in right groin/ adductors. Surgical scar is well-healed but with decreased mobility. PT-OP-G Mobility & Gait Start: 02/09/21 09:18 Freq: Status: Active Protocol: Document 02/14/21 13:45 AW (Rec: 02/15/21 13:33 AW [email or web address]) OP Mobility Evaluation Functional Movements Squats unable past 80 degrees due to pain OP Gait Assessment Comments Gait Comments Antalgic gait with need for walker. Pt currently using 3WW PT-OP-K Range of Motion Start: 02/09/21 09:18 Freq: Status: Active Protocol: Document 02/14/21 13:45 AW (Rec: 02/15/21 13:41 AW [email or web address]) Hip Goniometric Range of Motion Hip Right Hip ROM WFL No Testing Position Supine Flexion w/Knee Flexed 80 Comments PROM to 90 with report of pain Left Hip ROM WFL Yes Testing Position Supine Flexion w/Knee Flexed 110 Straight Leg Raise 85 Comments PROM to 125 without pain Hip ROM Limitations Hip ROM Limitations Pain Knee Goniometric Range of Motion Knee bilat Knee ROM WFL Yes Ankle and Foot Goniometric Range of Motion Ankle and Foot bilat Ankle/Foot ROM WFL Yes PT-OP-M Strength Start: 02/09/21 09:18 Freq: Status: Active Protocol: Document 02/14/21 13:45 AW (Rec: 02/15/21 13:41 AW [email or web address]) Hip Strength Hip Manual Muscle Testing Right Flexion (L2) 3+ Fair+ Abduction 3+ Fair+ Comments Extension and rotation not tested due to precautions Left Flexion (L2) 4+ Good+ Extension (S1) 4 Good Abduction 4 Good External Rotation 4+ Good+ Internal Rotation 4+ Good+ Knee Strength Knee Manual Muscle Testing Right Flexion (S2) 4 Good Extension (L3) 4 Good Left Flexion (S2) 4+ Good+ Extension (L3) 5 Normal Ankle/Foot Strength Ankle and Foot Manual Muscle Testing bilat Dorsiflexion (L4) 5 Normal Plantarflexion (S1) 4 Good PT-OP-Q Treatments Start: 02/09/21 09:18 Freq: Status: Active Protocol: Document 03/14/21 14:25 [facility] (Rec: 03/14/21 16:16 [facility] [id number]) Therapeutic Exercises Supine Exercises core stab/TA Supine Exercise Name core stab/TA Resistance w/ alternating hip flexor march - up up/down down (90/90 ) Reps/Minutes 8 reps x 2 Comments good awareness of pelvic tilt bridge Supine Exercise Name bridge Resistance AROM Reps/Minutes 5SH x 12 (HEP, completed 5 reps today review) Comments good elevation Sidelying Exercises hip abduction Sidelying Exercise Name hip abduction Side bilateral Resistance AROM Reps/Minutes x15 Comments HEP clam Sidelying Exercise Name clam Side bilateral Resistance AROM Reps/Minutes 2x15 Comments HEP Standing Exercises step up Standing Exercise Name step up - fwd and lateral Side right Equipment Used 6 step in // for prn support Reps/Minutes x10 each direction Comments clinic only hip abduction Standing Exercise Name hip abduction, lateral stepping Side bilateral Resistance AROM Manual Therapy Treatment Soft Tissue Mobilization TFL/IT band Body Location TFL/IT band Mobilization Type Strumming,Sustained Pressure Intensity/Depth Moderate Body Position Hooklying Comments manual MFR, good tolerance by pt. Followed up with ice x 10 min PT-OP-T Assessment and Plan Start: 02/09/21 09:18 Freq: Status: Active Protocol: Document 03/14/21 14:35 [facility] (Rec: 03/21/21 12:13 [facility] [id number]) Physical Therapy Assessment Assessment Summary Assessment pt doing much better overall with squatting and ability to perform single leg stance. Time was spent on MFR over the right ITB, pt tolerated this well. No pain with ther ex today and she is ambulating much better with SPC now. Physical Therapy Plan Frequency and Duration Frequency of Treatment 2x/Week Duration of Treatment 12 weeks Plan of Care Start Date 02/14/21 Plan of Care End Date 04/14/21 Therapeutic Interventions Therapeutic Interventions Aquatic Therapy,Balance Training,Gait Training,Home Exercise Program,Joint Mobilizations,Manual Therapy, Neuromuscular Re-education, Self-Care/Home Management,Soft Tissue Mobilization,Taping, Therapeutic Activities, Therapeutic Exercises Modalities Cold Pack/Ice Massage,Electric Stimulation,Hot Packs Next Visit Focus/Plan Next Note Type Treatment Note Next Visit Plan progress single leg stance and dynamic stability exercises.
--- NOTE | 2021-03-24 12:51 | PT.OTN ---
Current Diagnoses Unilateral primary osteoarthritis, right hip (03/24/21) Difficulty in walking, not elsewhere classified (03/24/21) Physical Therapy Treatment Note PT-OP-A Visit Information Start: 02/09/21 09:18 Freq: Status: Active Protocol: Document 03/24/21 12:06 MA (Rec: 03/24/21 12:50 MA [id number]) Out-Patient Physical Therapy Visit Information Visit Information Visit Type Treatment Note Visit Start Time 12:00 Visit Stop Time 12:45 PT-OP-B Current Condition Start: 02/09/21 09:18 Freq: Status: Active Protocol: Document 02/14/21 13:45 AW (Rec: 02/09/21 09:26 AW [email or web address]) Current Condition History of Current Condition Onset Date 01/11/21 Current Complaints R hip pain s/p 01/11/21 R SILVER with anterior approach History of Current Condition Pt had R anterior SILVER on 01/11. She continues to have pain which is largely localized at her groin. Her surgical site is still very sore although swelling has decreased. She is using 3WW at all times but will take steps without it if she can cruise a countertop. She is not taking pain medication other than occasional ibuprofen. Her pain is sharp. She used cold initially but no longer. Pt has been doing glute sets, quad sets, and heel slides daily but reports that it hurts afterward. PMH includes levoscoliosis, low back pain, hypothyroid, L2-3 L3-4 medial branch rhizotomy 07/28/2019 with no relief. PMH also significant for bronchiolo- alveolar carcinoma and osteoporosis. Pt reports she and her spouse are moving to [facility] in May 2021. Prior Treatments and Tests - Referral from LOUIE Ruff: 01/24 - initiate gait training and work on pelvic imbalance. Avoid stretching until Future Testing and Treatments Planned None identified. Treatment Goals Patient/Caregiver Goals Walk without assistive device. Be able to manage preparation for moving with less pain. Return to yoga, pilates. Squat without pain. Prior Functional Status Baseline Function- Gait Independent without AD Current Functional Impairments (Reported) Functional Limitations- Mobility/Gait Pt needs 3WW for ambulation and is limited to household or short community distances. PT-OP-C Subjective Start: 02/09/21 09:18 Freq: Status: Active Protocol: Document 03/24/21 12:06 MA (Rec: 03/24/21 12:51 MA [id number]) OP-PT Subjective Patient Comments Patient Comments Pt only uses her cane now later in the day when she is more tired or feels like she needs it. She did not bring it to session today. She states she feels she has been moving well but has some difficulty with stairs more because of knee pain, but has some hip pain when stepping up. PT-OP-D Balance Start: 02/09/21 09:18 Freq: Status: Active Protocol: Document 02/14/21 13:45 AW (Rec: 02/15/21 13:33 AW [email or web address]) Balance Tests Single Limb Standing Single Limb- Right unable Single Limb- Left 10 sec with fingertip support on wall PT-OP-E Functional Tests Start: 02/09/21 09:18 Freq: Status: Active Protocol: Document 02/14/21 13:45 AW (Rec: 02/15/21 13:46 AW [email or web address]) Functional Tests 6 Minute Walk Test Distance 840 feet Device Used 3WW Comments 0.7 m/s average speed with consistent split times PT-OP-F Manual Assessment Start: 02/09/21 09:18 Freq: Status: Active Protocol: Document 02/14/21 13:45 AW (Rec: 02/15/21 13:33 AW [email or web address]) Manual Assessments Soft Tissue Assessment Soft Tissue Mobility Assessment Increased tone in right groin/ adductors. Surgical scar is well-healed but with decreased mobility. PT-OP-G Mobility & Gait Start: 02/09/21 09:18 Freq: Status: Active Protocol: Document 02/14/21 13:45 AW (Rec: 02/15/21 13:33 AW [email or web address]) OP Mobility Evaluation Functional Movements Squats unable past 80 degrees due to pain OP Gait Assessment Comments Gait Comments Antalgic gait with need for walker. Pt currently using 3WW PT-OP-K Range of Motion Start: 02/09/21 09:18 Freq: Status: Active Protocol: Document 02/14/21 13:45 AW (Rec: 02/15/21 13:41 AW [email or web address]) Hip Goniometric Range of Motion Hip Right Hip ROM WFL No Testing Position Supine Flexion w/Knee Flexed 80 Comments PROM to 90 with report of pain Left Hip ROM WFL Yes Testing Position Supine Flexion w/Knee Flexed 110 Straight Leg Raise 85 Comments PROM to 125 without pain Hip ROM Limitations Hip ROM Limitations Pain Knee Goniometric Range of Motion Knee bilat Knee ROM WFL Yes Ankle and Foot Goniometric Range of Motion Ankle and Foot bilat Ankle/Foot ROM WFL Yes PT-OP-M Strength Start: 02/09/21 09:18 Freq: Status: Active Protocol: Document 02/14/21 13:45 AW (Rec: 02/15/21 13:41 AW [email or web address]) Hip Strength Hip Manual Muscle Testing Right Flexion (L2) 3+ Fair+ Abduction 3+ Fair+ Comments Extension and rotation not tested due to precautions Left Flexion (L2) 4+ Good+ Extension (S1) 4 Good Abduction 4 Good External Rotation 4+ Good+ Internal Rotation 4+ Good+ Knee Strength Knee Manual Muscle Testing Right Flexion (S2) 4 Good Extension (L3) 4 Good Left Flexion (S2) 4+ Good+ Extension (L3) 5 Normal Ankle/Foot Strength Ankle and Foot Manual Muscle Testing bilat Dorsiflexion (L4) 5 Normal Plantarflexion (S1) 4 Good PT-OP-Q Treatments Start: 02/09/21 09:18 Freq: Status: Active Protocol: Document 03/24/21 12:06 MA (Rec: 03/24/21 12:50 MA [id number]) Therapeutic Exercises Supine Exercises core stab/TA Supine Exercise Name core stab/TA Resistance w/ alternating hip flexor march - up up/down down (90/90 ) Reps/Minutes 8 reps x 2 Comments good awareness of pelvic tilt bridge Supine Exercise Name bridge Resistance AROM Reps/Minutes 5SH x 12 (HEP, completed 5 reps today review) Comments good elevation Standing Exercises step up Standing Exercise Name step up - fwd and lateral Side bilateral Equipment Used 6 step in // for prn support Reps/Minutes x10 each direction Comments clinic only hip abduction Standing Exercise Name hip abduction, lateral stepping Side bilateral Resistance AROM Other Exercises sit to stand Other Exercise Name sit to stand Resistance no UE support - hands in front Equipment Used 18 chair Reps/Minutes 10 reps Manual Therapy Treatment Soft Tissue Mobilization TFL/IT band Body Location TFL/IT band & R glute med, scar mobs Mobilization Type Strumming,Sustained Pressure Intensity/Depth Moderate Body Position Sidelying Comments pillow b/w knees. good tolerance by pt. no ice this session Neuro Re-Education Treatment Balance Activities Marching Details working on balance Equipment no rail Reps/Duration x20 SLS Details SLS trials Comments 21 seconds RLE, 30 sec LLE PT-OP-T Assessment and Plan Start: 02/09/21 09:18 Freq: Status: Active Protocol: Document 03/24/21 12:06 MA (Rec: 03/24/21 12:50 MA [id number]) Physical Therapy Assessment Goals Four Impairment gait Impairment Pt requires 3WW for household and community ambulation Short Term Goal (STG) Pt will ambulate 1000 feet on 6MWT with LRAD as a measure of decreased pain and increased self-efficacy in gait. STG Duration 03/21/21 Net Trainer Goal (LTG) Pt will ambulate 1250 feet on 6MWT without assistive device as a measure of decreased pain and increased self-efficacy in gait. LTG Duration 04/14/21 Three Impairment balance Short Term Goal (STG) Pt will improve SLS to 10 seconds or greater bilaterally to improve stability in gait. STG Duration 03/21/21 Net Trainer Goal (LTG) Pt will score 24 or greater on Functional Gait Assessment ( consistent with age-matched peers) as a measure of improved dynamic balance. LTG Duration 04/14/21 Two Impairment impaired right hip ROM Short Term Goal (STG) Pt will improve supine hip AROM (with knee flexed) to 100 degrees for improved safety with stair navigation STG Duration 03/21/21 Net Trainer Goal (LTG) Pt will improve supine hip AROM (with knee flexed) to 110 degrees or greater for ease with dressing tasks and other ADL's. LTG Duration 04/14/21 One Impairment lacks HEP Short Term Goal (STG) Pt will be instructed in progressive HEP for hip ROM, strength, and stability STG Duration 03/21/21 Prison Goal (LTG) Pt will be independent with progressive HEP for hip ROM, strength, and stability to improve her gait quality and reduce risk of falls. LTG Duration 04/14/21 Assessment Summary Assessment Pt does well on stairs but has knee pain instead of hip pain when ascending & descending. Pt states she has more difficulty with ascending on her hip but feels her step-up exercises are helping with her strength. Worked on SLS and standing balance while marching with pt demonstrating good dynamic balance and not requiring rail assist. She was able to hold SLS on RLE for 21 seconds and surpassed 30 second goal on LLE. Physical Therapy Plan Frequency and Duration Frequency of Treatment 2x/Week Duration of Treatment 12 weeks Plan of Care Start Date 02/14/21 Plan of Care End Date 04/14/21 Therapeutic Interventions Therapeutic Interventions Aquatic Therapy,Balance Training,Gait Training,Home Exercise Program,Joint Mobilizations,Manual Therapy, Neuromuscular Re-education, Self-Care/Home Management,Soft Tissue Mobilization,Taping, Therapeutic Activities, Therapeutic Exercises Modalities Cold Pack/Ice Massage,Electric Stimulation,Hot Packs Next Visit Focus/Plan Next Note Type Treatment Note Next Visit Plan progress single leg stance and dynamic stability exercises.
--- NOTE | 2021-03-28 13:52 | PT.OTN ---
Current Diagnoses Unilateral primary osteoarthritis, right hip (03/28/21) Difficulty in walking, not elsewhere classified (03/28/21) Physical Therapy Treatment Note PT-OP-A Visit Information Start: 02/09/21 09:18 Freq: Status: Active Protocol: Document 03/28/21 13:03 SP (Rec: 03/28/21 14:29 SP [id number]) Out-Patient Physical Therapy Visit Information Visit Information Visit Type Treatment Note Visit Start Time 13:03 Visit Stop Time 13:52 Total Visit Minutes 49 Visit Number 6 Number of MASONRY CONTRACTOR ADMINISTRATOR Visits 2 Evaluation Information Evaluation Date 02/14/21 Precautions Precautions Anterior hip precautions. Osteoporosis. PT-OP-B Current Condition Start: 02/09/21 09:18 Freq: Status: Active Protocol: Document 02/14/21 13:45 AW (Rec: 02/09/21 09:26 AW [email or web address]) Current Condition History of Current Condition Onset Date 01/11/21 Current Complaints R hip pain s/p 01/11/21 R SILVER with anterior approach History of Current Condition Pt had R anterior SILVER on 01/11. She continues to have pain which is largely localized at her groin. Her surgical site is still very sore although swelling has decreased. She is using 3WW at all times but will take steps without it if she can cruise a countertop. She is not taking pain medication other than occasional ibuprofen. Her pain is sharp. She used cold initially but no longer. Pt has been doing glute sets, quad sets, and heel slides daily but reports that it hurts afterward. PMH includes levoscoliosis, low back pain, hypothyroid, L2-3 L3-4 medial branch rhizotomy 07/28/2019 with no relief. PMH also significant for bronchiolo- alveolar carcinoma and osteoporosis. Pt reports she and her spouse are moving to [place] in May 2021. Prior Treatments and Tests - Referral from LOUIE Mccabe: 01/24 - initiate gait training and work on pelvic imbalance. Avoid stretching until Future Testing and Treatments Planned None identified. Treatment Goals Patient/Caregiver Goals Walk without assistive device. Be able to manage preparation for moving with less pain. Return to yoga, pilates. Squat without pain. Prior Functional Status Baseline Function- Gait Independent without AD Current Functional Impairments (Reported) Functional Limitations- Mobility/Gait Pt needs 3WW for ambulation and is limited to household or short community distances. PT-OP-C Subjective Start: 02/09/21 09:18 Freq: Status: Active Protocol: Document 03/28/21 13:03 SP (Rec: 03/28/21 14:29 SP [id number]) OP-PT Subjective Patient Comments Patient Comments Pt stated doing well, DC'd the cane, doesn't feel needs it anymore. Pt asked when do you know you are done with therapy? Pt reports hasn't walked outside yet with weather not consistant. Pt is moving to [place] beginning of May and hasn't felt comfortable with lifting objects, balance as good as wants to get back to normal activities. Wants to focus on funtional strengthening mobility. Pt reported in past PT thought the bike warm up was helpful. PT-OP-D Balance Start: 02/09/21 09:18 Freq: Status: Active Protocol: Document 02/14/21 13:45 AW (Rec: 02/15/21 13:33 AW [email or web address]) Balance Tests Single Limb Standing Single Limb- Right unable Single Limb- Left 10 sec with fingertip support on wall PT-OP-E Functional Tests Start: 02/09/21 09:18 Freq: Status: Active Protocol: Document 02/14/21 13:45 AW (Rec: 02/15/21 13:46 AW [email or web address]) Functional Tests 6 Minute Walk Test Distance 840 feet Device Used 3WW Comments 0.7 m/s average speed with consistent split times PT-OP-F Manual Assessment Start: 02/09/21 09:18 Freq: Status: Active Protocol: Document 02/14/21 13:45 AW (Rec: 02/15/21 13:33 AW [email or web address]) Manual Assessments Soft Tissue Assessment Soft Tissue Mobility Assessment Increased tone in right groin/ adductors. Surgical scar is well-healed but with decreased mobility. PT-OP-G Mobility & Gait Start: 02/09/21 09:18 Freq: Status: Active Protocol: Document 02/14/21 13:45 AW (Rec: 02/15/21 13:33 AW [email or web address]) OP Mobility Evaluation Functional Movements Squats unable past 80 degrees due to pain OP Gait Assessment Comments Gait Comments Antalgic gait with need for walker. Pt currently using 3WW PT-OP-K Range of Motion Start: 02/09/21 09:18 Freq: Status: Active Protocol: Document 02/14/21 13:45 AW (Rec: 02/15/21 13:41 AW [email or web address]) Hip Goniometric Range of Motion Hip Right Hip ROM WFL No Testing Position Supine Flexion w/Knee Flexed 80 Comments PROM to 90 with report of pain Left Hip ROM WFL Yes Testing Position Supine Flexion w/Knee Flexed 110 Straight Leg Raise 85 Comments PROM to 125 without pain Hip ROM Limitations Hip ROM Limitations Pain Knee Goniometric Range of Motion Knee bilat Knee ROM WFL Yes Ankle and Foot Goniometric Range of Motion Ankle and Foot bilat Ankle/Foot ROM WFL Yes PT-OP-M Strength Start: 02/09/21 09:18 Freq: Status: Active Protocol: Document 02/14/21 13:45 AW (Rec: 02/15/21 13:41 AW [email or web address]) Hip Strength Hip Manual Muscle Testing Right Flexion (L2) 3+ Fair+ Abduction 3+ Fair+ Comments Extension and rotation not tested due to precautions Left Flexion (L2) 4+ Good+ Extension (S1) 4 Good Abduction 4 Good External Rotation 4+ Good+ Internal Rotation 4+ Good+ Knee Strength Knee Manual Muscle Testing Right Flexion (S2) 4 Good Extension (L3) 4 Good Left Flexion (S2) 4+ Good+ Extension (L3) 5 Normal Ankle/Foot Strength Ankle and Foot Manual Muscle Testing bilat Dorsiflexion (L4) 5 Normal Plantarflexion (S1) 4 Good PT-OP-Q Treatments Start: 02/09/21 09:18 Freq: Status: Active Protocol: Document 03/28/21 13:03 SP (Rec: 03/28/21 14:29 SP [id number]) Cardio Equipment Recumbent Stepper (Sci-Fit) Duration (Minutes) 6 Resistance 1 (increase 2+ next tx) Seat Position 7 Other UE/ LEs, 0.6 miles, 45- 55 RPMs (liked the warm up!!) Therapeutic Exercises Standing Exercises band walk Standing Exercise Name f/b/ lateral- added to HEP Side bilateral Resistance TB #1 Equipment Used near rail for contact PRN safety, not needed today Reps/Minutes 20 ft x3 laps each Comments cued slow eccentric return and little more than normal PHIL stance step up Standing Exercise Name recheck next tx. Other Exercises self STMs Other Exercise Name discussed Side right Equipment Used rolling pin to quad/ITB/HS/ calf, racquetball to piriformis, TFL (gently) Comments good response-sensitive but with tolerant pressure, helps relax tight quad sit to stand Other Exercise Name sit to stand Resistance no UE support - hands in front Equipment Used 18 chair Reps/Minutes 10 reps Gait Training Gait Activity dynamic gait Description head turns, vertical, EC f/b, obstacle course Device Used light contact rail/ wall for self success for progress HEP Comments start next tx outside gait w/ AD Device Used 0 Level of Assistance SBA- S Surface uneven pavement, incline/ decline Distance/Duration 1322ft Treatment Focus stability with improved trunk alignment w/ core/ hip abd facilitation Comments improved more even cadance, improved decrease to no R SB trunk lean during LLE advancement post cuing for awareness. stairs Description stairs Device Used 0 Level of Assistance CGA Surface outside stairs Distance/Duration 4 stairs x 8 sets, rail PRN if needed (descend, light contact rail last 2) Treatment Focus core/ hip abd/ quad strengthening, soft landing descend stability Comments ascend good stability post core/hip abd fac and trunk alignment education, improved decrease amount rail contact last 2 sets stairs. Manual Therapy Treatment Soft Tissue Mobilization TFL/IT band Body Location TFL/IT band & R glute med, scar mobs Mobilization Type Strumming,Sustained Pressure Intensity/Depth Moderate Body Position Sidelying Comments pillow b/w knees. good tolerance with education self application carryover. scar mobilization Body Location scar mobilization Mobilization Type Cross-Friction,Myofascial Release,Rolling,Sustained Pressure Intensity/Depth Moderate Comments manual and reiewed pt carryover self mysfacial skin and scar mob for home multidirectional, good feedback response. Pt stated still needs to get racqetball for STMs hip abd/ TLF helped during past txs. Self-Care/Home Management Treatment Education Patient Education Home Exercise Program,Joint Protection,Posture Other Education Added band walk for hip abductor strengthening, good response. Time spent side sleeping for jt alignment: education for pillows between BLE with good feeeback very comfortable. Good understanding of self STMs found benificial to continue at home: rac. ball wall, skin rolling and scar mob to help decrease anterior hip tightness found helpful. PT-OP-T Assessment and Plan Start: 02/09/21 09:18 Freq: Status: Active Protocol: Document 03/28/21 13:03 SP (Rec: 03/28/21 14:29 SP [id number]) Physical Therapy Assessment Goals Four Impairment gait Impairment Pt requires 3WW for household and community ambulation Short Term Goal (STG) Pt will ambulate 1000 feet on 6MWT with LRAD as a measure of decreased pain and increased self-efficacy in gait. 03/28/21: GOAL MET 1322 ft , no AD STG Duration 03/21/21 GOAL MET Senior Living Goal (LTG) Pt will ambulate 1250 feet on 6MWT without assistive device as a measure of decreased pain and increased self-efficacy in gait. 03/28/21: progressin ft, no AD outdoor gait- little pain 3-4/10 over lateral hip and fatigued after scifit, outdoor gait and outdoor stairs. LTG Duration 04/14/21 progressing. Three Impairment balance Short Term Goal (STG) Pt will improve SLS to 10 seconds or greater bilaterally to improve stability in gait. 03/28/21: GOAL MET: 30 sec SLS R and L. STG Duration 03/21/21 GOAL MET Senior Living Goal (LTG) Pt will score 24 or greater on Functional Gait Assessment ( consistent with age-matched peers) as a measure of improved dynamic balance. LTG Duration 04/14/21 Two Impairment impaired right hip ROM Short Term Goal (STG) Pt will improve supine hip AROM (with knee flexed) to 100 degrees for improved safety with stair navigation STG Duration 03/21/21 Senior Living Goal (LTG) Pt will improve supine hip AROM (with knee flexed) to 110 degrees or greater for ease with dressing tasks and other ADL's. LTG Duration 04/14/21 One Impairment lacks HEP Short Term Goal (STG) Pt will be instructed in progressive HEP for hip ROM, strength, and stability STG Duration 03/21/21 Side Seam Envelope Machine Operator Goal (LTG) Pt will be independent with progressive HEP for hip ROM, strength, and stability to improve her gait quality and reduce risk of falls. LTG Duration 04/14/21 Progress Towards Goals Progress Towards Goals Progressing Toward Goals Progress Comments MET GOALS: STG #4, #3. Next tx assess FGA ## and ROM #2 goals. Assessment Summary Assessment Pt responded well to progressing outdoor uneven parkinglot surface gait no AD needed, stairs with better understanding alignment, core and hip abd facilitation to allow improved balance/ stability.Pt good response to added scifit, band walks this tx. Physical Therapy Plan Frequency and Duration Frequency of Treatment 2x/Week Duration of Treatment 12 weeks Plan of Care Start Date 02/14/21 Plan of Care End Date 04/14/21 Therapeutic Interventions Therapeutic Interventions Aquatic Therapy,Balance Training,Gait Training,Home Exercise Program,Joint Mobilizations,Manual Therapy, Neuromuscular Re-education, Self-Care/Home Management,Soft Tissue Mobilization,Taping, Therapeutic Activities, Therapeutic Exercises Modalities Cold Pack/Ice Massage,Electric Stimulation,Hot Packs Next Visit Focus/Plan Next Note Type Treatment Note Next Visit Plan next tx: body mechanics lifting (for packign boxes), uneven surface gait and dynamic stability activities for carryover home.
--- NOTE | 2021-03-30 17:17 | PT.OTN ---
Current Diagnoses Unilateral primary osteoarthritis, right hip (03/30/21) Difficulty in walking, not elsewhere classified (03/30/21) Physical Therapy Treatment Note PT-OP-A Visit Information Start: 02/09/21 09:18 Freq: Status: Active Protocol: Document 03/30/21 13:50 [facility] (Rec: 03/30/21 14:40 [facility] [id number]) Out-Patient Physical Therapy Visit Information Visit Information Visit Type Treatment Note Visit Start Time 13:50 Visit Stop Time 14:30 Total Visit Minutes 50 Visit Number 7 PT-OP-B Current Condition Start: 02/09/21 09:18 Freq: Status: Active Protocol: Document 02/14/21 13:45 AW (Rec: 02/09/21 09:26 AW [email or web address]) Current Condition History of Current Condition Onset Date 01/11/21 Current Complaints R hip pain s/p 01/11/21 R SILVER with anterior approach History of Current Condition Pt had R anterior SILVER on 01/11. She continues to have pain which is largely localized at her groin. Her surgical site is still very sore although swelling has decreased. She is using 3WW at all times but will take steps without it if she can cruise a countertop. She is not taking pain medication other than occasional ibuprofen. Her pain is sharp. She used cold initially but no longer. Pt has been doing glute sets, quad sets, and heel slides daily but reports that it hurts afterward. PMH includes levoscoliosis, low back pain, hypothyroid, L2-3 L3-4 medial branch rhizotomy 07/28/2019 with no relief. PMH also significant for bronchiolo- alveolar carcinoma and osteoporosis. Pt reports she and her spouse are moving to [place] in May 2021. Prior Treatments and Tests - Referral from LOUIE Mccabe: 01/24 - initiate gait training and work on pelvic imbalance. Avoid stretching until Future Testing and Treatments Planned None identified. Treatment Goals Patient/Caregiver Goals Walk without assistive device. Be able to manage preparation for moving with less pain. Return to yoga, pilates. Squat without pain. Prior Functional Status Baseline Function- Gait Independent without AD Current Functional Impairments (Reported) Functional Limitations- Mobility/Gait Pt needs 3WW for ambulation and is limited to household or short community distances. PT-OP-C Subjective Start: 02/09/21 09:18 Freq: Status: Active Protocol: Document 03/30/21 13:50 [facility] (Rec: 03/30/21 17:14 [facility] [id number]) OP-PT Subjective Patient Comments Patient Comments pt reports overall she is doing better with her hip, she describes her pain as more muscular tightness on her lateral thigh and hip and is no longer experiencing any groin pain. She plans on working on stairs at her condo at home as when she moves in 1 month to [facility] there will be a lot of stairs to climb Patient Reported Progress Improving PT-OP-D Balance Start: 02/09/21 09:18 Freq: Status: Active Protocol: Document 02/14/21 13:45 AW (Rec: 02/15/21 13:33 AW [email or web address]) Balance Tests Single Limb Standing Single Limb- Right unable Single Limb- Left 10 sec with fingertip support on wall PT-OP-E Functional Tests Start: 02/09/21 09:18 Freq: Status: Active Protocol: Document 02/14/21 13:45 AW (Rec: 02/15/21 13:46 AW [email or web address]) Functional Tests 6 Minute Walk Test Distance 840 feet Device Used 3WW Comments 0.7 m/s average speed with consistent split times PT-OP-F Manual Assessment Start: 02/09/21 09:18 Freq: Status: Active Protocol: Document 02/14/21 13:45 AW (Rec: 02/15/21 13:33 AW [email or web address]) Manual Assessments Soft Tissue Assessment Soft Tissue Mobility Assessment Increased tone in right groin/ adductors. Surgical scar is well-healed but with decreased mobility. PT-OP-G Mobility & Gait Start: 02/09/21 09:18 Freq: Status: Active Protocol: Document 02/14/21 13:45 AW (Rec: 02/15/21 13:33 AW [email or web address]) OP Mobility Evaluation Functional Movements Squats unable past 80 degrees due to pain OP Gait Assessment Comments Gait Comments Antalgic gait with need for walker. Pt currently using 3WW PT-OP-K Range of Motion Start: 02/09/21 09:18 Freq: Status: Active Protocol: Document 02/14/21 13:45 AW (Rec: 02/15/21 13:41 AW [email or web address]) Hip Goniometric Range of Motion Hip Right Hip ROM WFL No Testing Position Supine Flexion w/Knee Flexed 80 Comments PROM to 90 with report of pain Left Hip ROM WFL Yes Testing Position Supine Flexion w/Knee Flexed 110 Straight Leg Raise 85 Comments PROM to 125 without pain Hip ROM Limitations Hip ROM Limitations Pain Knee Goniometric Range of Motion Knee bilat Knee ROM WFL Yes Ankle and Foot Goniometric Range of Motion Ankle and Foot bilat Ankle/Foot ROM WFL Yes PT-OP-M Strength Start: 02/09/21 09:18 Freq: Status: Active Protocol: Document 02/14/21 13:45 AW (Rec: 02/15/21 13:41 AW [email or web address]) Hip Strength Hip Manual Muscle Testing Right Flexion (L2) 3+ Fair+ Abduction 3+ Fair+ Comments Extension and rotation not tested due to precautions Left Flexion (L2) 4+ Good+ Extension (S1) 4 Good Abduction 4 Good External Rotation 4+ Good+ Internal Rotation 4+ Good+ Knee Strength Knee Manual Muscle Testing Right Flexion (S2) 4 Good Extension (L3) 4 Good Left Flexion (S2) 4+ Good+ Extension (L3) 5 Normal Ankle/Foot Strength Ankle and Foot Manual Muscle Testing bilat Dorsiflexion (L4) 5 Normal Plantarflexion (S1) 4 Good PT-OP-Q Treatments Start: 02/09/21 09:18 Freq: Status: Active Protocol: Document 03/30/21 13:53 AMH (Rec: 03/30/21 14:40 AMH [id number]) Cardio Equipment Recumbent Elliptical (Biodex) Duration (Minutes) 8 Seat Position 5 Therapeutic Exercises Supine Exercises bridge Supine Exercise Name bridge with theraband around thighs Resistance AROM Reps/Minutes 3 x 10 reps Comments good elevation Sidelying Exercises clam Sidelying Exercise Name clam Side bilateral Resistance AROM Reps/Minutes 2x15 with yellow theraband Comments HEP Standing Exercises step up Standing Exercise Name step ups on both 4 and 6 stairs Reps/Minutes x 5 each Gait Training Gait Activity stairs Description stairs Level of Assistance CGA Surface inside stairs Distance/Duration pt completed 3 sets of both sides of the stairs with step over step gait Comments good ability for step over step gait, right hand on rail only Manual Therapy Treatment Soft Tissue Mobilization TFL/IT band Body Location TFL/IT band & R glute med, scar mobs Mobilization Type Strumming,Sustained Pressure Intensity/Depth Moderate Body Position Sidelying Comments pillow b/w knees. good tolerance with education self application carryover. PT-OP-T Assessment and Plan Start: 02/09/21 09:18 Freq: Status: Active Protocol: Document 03/30/21 13:50 [facility] (Rec: 03/30/21 17:14 [facility] [id number]) Physical Therapy Assessment Assessment Summary Assessment Abby was able to demonstrate step over step on stairs in the clinic today. I reviewed her therabands she has at home with her and let her know which ones to use. Continue progressing strength as Abby has one month until she moves. I added in the biodex today which she tolerated well Physical Therapy Plan Frequency and Duration Frequency of Treatment 2x/Week Duration of Treatment 12 weeks Plan of Care Start Date 02/14/21 Plan of Care End Date 04/14/21 Therapeutic Interventions Therapeutic Interventions Aquatic Therapy,Balance Training,Gait Training,Home Exercise Program,Joint Mobilizations,Manual Therapy, Neuromuscular Re-education, Self-Care/Home Management,Soft Tissue Mobilization,Taping, Therapeutic Activities, Therapeutic Exercises Modalities Cold Pack/Ice Massage,Electric Stimulation,Hot Packs Next Visit Focus/Plan Next Note Type Treatment Note Next Visit Plan biodex, dynamic gait training, continue working on balance and stairs
--- NOTE | 2021-04-04 14:08 | PT.OTN ---
Current Diagnoses Unilateral primary osteoarthritis, right hip (04/04/21) Difficulty in walking, not elsewhere classified (04/04/21) Physical Therapy Treatment Note PT-OP-A Visit Information Start: 02/09/21 09:18 Freq: Status: Active Protocol: Document 04/04/21 11:26 AMH (Rec: 04/04/21 12:58 AM[facility] [id number]) Out-Patient Physical Therapy Visit Information Visit Information Visit Type Treatment Note Visit Start Time 11:20 Visit Stop Time 12:05 Total Visit Minutes 45 Visit Number 8 PT-OP-B Current Condition Start: 02/09/21 09:18 Freq: Status: Active Protocol: Document 02/14/21 13:45 AW (Rec: 02/09/21 09:26 AW [email or web address]) Current Condition History of Current Condition Onset Date 01/11/21 Current Complaints R hip pain s/p 01/11/21 R SILVER with anterior approach History of Current Condition Pt had R anterior SILVER on 01/11. She continues to have pain which is largely localized at her groin. Her surgical site is still very sore although swelling has decreased. She is using 3WW at all times but will take steps without it if she can cruise a countertop. She is not taking pain medication other than occasional ibuprofen. Her pain is sharp. She used cold initially but no longer. Pt has been doing glute sets, quad sets, and heel slides daily but reports that it hurts afterward. PMH includes levoscoliosis, low back pain, hypothyroid, L2-3 L3-4 medial branch rhizotomy 07/28/2019 with no relief. PMH also significant for bronchiolo- alveolar carcinoma and osteoporosis. Pt reports she and her spouse are moving to [place] in May 2021. Prior Treatments and Tests - Referral from LOUIE Mccabe: 01/24 - initiate gait training and work on pelvic imbalance. Avoid stretching until Future Testing and Treatments Planned None identified. Treatment Goals Patient/Caregiver Goals Walk without assistive device. Be able to manage preparation for moving with less pain. Return to yoga, pilates. Squat without pain. Prior Functional Status Baseline Function- Gait Independent without AD Current Functional Impairments (Reported) Functional Limitations- Mobility/Gait Pt needs 3WW for ambulation and is limited to household or short community distances. PT-OP-C Subjective Start: 02/09/21 09:18 Freq: Status: Active Protocol: Document 04/04/21 11:20 AMH (Rec: 04/04/21 14:08 AM[facility] [id number]) OP-PT Subjective Patient Comments Patient Comments pt reports she is doing better with stairs. She notes her ankle was giving her more trouble than her hip when doing her stairs at her home. Patient Reported Progress Improving PT-OP-D Balance Start: 02/09/21 09:18 Freq: Status: Active Protocol: Document 02/14/21 13:45 AW (Rec: 02/15/21 13:33 AW [email or web address]) Balance Tests Single Limb Standing Single Limb- Right unable Single Limb- Left 10 sec with fingertip support on wall PT-OP-E Functional Tests Start: 02/09/21 09:18 Freq: Status: Active Protocol: Document 02/14/21 13:45 AW (Rec: 02/15/21 13:46 AW [email or web address]) Functional Tests 6 Minute Walk Test Distance 840 feet Device Used 3WW Comments 0.7 m/s average speed with consistent split times PT-OP-F Manual Assessment Start: 02/09/21 09:18 Freq: Status: Active Protocol: Document 02/14/21 13:45 AW (Rec: 02/15/21 13:33 AW [email or web address]) Manual Assessments Soft Tissue Assessment Soft Tissue Mobility Assessment Increased tone in right groin/ adductors. Surgical scar is well-healed but with decreased mobility. PT-OP-G Mobility & Gait Start: 02/09/21 09:18 Freq: Status: Active Protocol: Document 02/14/21 13:45 AW (Rec: 02/15/21 13:33 AW [email or web address]) OP Mobility Evaluation Functional Movements Squats unable past 80 degrees due to pain OP Gait Assessment Comments Gait Comments Antalgic gait with need for walker. Pt currently using 3WW PT-OP-K Range of Motion Start: 02/09/21 09:18 Freq: Status: Active Protocol: Document 02/14/21 13:45 AW (Rec: 02/15/21 13:41 AW [email or web address]) Hip Goniometric Range of Motion Hip Right Hip ROM WFL No Testing Position Supine Flexion w/Knee Flexed 80 Comments PROM to 90 with report of pain Left Hip ROM WFL Yes Testing Position Supine Flexion w/Knee Flexed 110 Straight Leg Raise 85 Comments PROM to 125 without pain Hip ROM Limitations Hip ROM Limitations Pain Knee Goniometric Range of Motion Knee bilat Knee ROM WFL Yes Ankle and Foot Goniometric Range of Motion Ankle and Foot bilat Ankle/Foot ROM WFL Yes PT-OP-M Strength Start: 02/09/21 09:18 Freq: Status: Active Protocol: Document 02/14/21 13:45 AW (Rec: 02/15/21 13:41 AW [email or web address]) Hip Strength Hip Manual Muscle Testing Right Flexion (L2) 3+ Fair+ Abduction 3+ Fair+ Comments Extension and rotation not tested due to precautions Left Flexion (L2) 4+ Good+ Extension (S1) 4 Good Abduction 4 Good External Rotation 4+ Good+ Internal Rotation 4+ Good+ Knee Strength Knee Manual Muscle Testing Right Flexion (S2) 4 Good Extension (L3) 4 Good Left Flexion (S2) 4+ Good+ Extension (L3) 5 Normal Ankle/Foot Strength Ankle and Foot Manual Muscle Testing bilat Dorsiflexion (L4) 5 Normal Plantarflexion (S1) 4 Good PT-OP-Q Treatments Start: 02/09/21 09:18 Freq: Status: Active Protocol: Document 04/04/21 11:20 AMH (Rec: 04/04/21 14:08 AMH [id number]) Cardio Equipment Recumbent Stepper (Sci-Fit) Duration (Minutes) 8 Resistance 3 Seat Position 7 Manual Therapy Treatment Soft Tissue Mobilization TFL/IT band Body Location TFL/IT band & R glute med, scar mobs Mobilization Type Strumming,Sustained Pressure Intensity/Depth Moderate Body Position Sidelying Comments pillow b/w knees. good tolerance with education self application carryover. scar mobilization Body Location scar mobilization Mobilization Type Cross-Friction,Myofascial Release,Rolling,Sustained Pressure Intensity/Depth Moderate Comments manual and reiewed pt carryover self mysfacial skin and scar mob for home multidirectional, good feedback response. Pt stated still needs to get racqetball for STMs hip abd/ TLF helped during past txs. PT-OP-T Assessment and Plan Start: 02/09/21 09:18 Freq: Status: Active Protocol: Document 04/04/21 11:20 AMH (Rec: 04/04/21 14:08 [facility] [id number]) Physical Therapy Assessment Assessment Summary Assessment Abby is doing better with stairs, she was able to take resistance on the biodex today and tolerated this well. Her ITB is still tight but is slowing improving. Physical Therapy Plan Frequency and Duration Frequency of Treatment 2x/Week Duration of Treatment 12 weeks Plan of Care Start Date 02/14/21 Plan of Care End Date 04/14/21 Therapeutic Interventions Therapeutic Interventions Aquatic Therapy,Balance Training,Gait Training,Home Exercise Program,Joint Mobilizations,Manual Therapy, Neuromuscular Re-education, Self-Care/Home Management,Soft Tissue Mobilization,Taping, Therapeutic Activities, Therapeutic Exercises Modalities Cold Pack/Ice Massage,Electric Stimulation,Hot Packs Next Visit Focus/Plan Next Note Type Progress Note Next Visit Plan biodex, dynamic gait training, continue working on balance and stairs
--- NOTE | 2021-04-06 15:40 | PT.OTN ---
Current Diagnoses Unilateral primary osteoarthritis, right hip (04/06/21) Difficulty in walking, not elsewhere classified (04/06/21) Physical Therapy Treatment Note PT-OP-A Visit Information Start: 02/09/21 09:18 Freq: Status: Active Protocol: Document 04/06/21 13:00 AMH (Rec: 04/06/21 15:34 AMH [id number]) Out-Patient Physical Therapy Visit Information Visit Information Visit Type Treatment Note Visit Start Time 13:00 Visit Stop Time 13:45 Total Visit Minutes 45 Visit Number 9 PT-OP-B Current Condition Start: 02/09/21 09:18 Freq: Status: Active Protocol: Document 02/14/21 13:45 AW (Rec: 02/09/21 09:26 AW [email or web address]) Current Condition History of Current Condition Onset Date 01/11/21 Current Complaints R hip pain s/p 01/11/21 R SILVER with anterior approach History of Current Condition Pt had R anterior SILVER on 01/11. She continues to have pain which is largely localized at her groin. Her surgical site is still very sore although swelling has decreased. She is using 3WW at all times but will take steps without it if she can cruise a countertop. She is not taking pain medication other than occasional ibuprofen. Her pain is sharp. She used cold initially but no longer. Pt has been doing glute sets, quad sets, and heel slides daily but reports that it hurts afterward. PMH includes levoscoliosis, low back pain, hypothyroid, L2-3 L3-4 medial branch rhizotomy 07/28/2019 with no relief. PMH also significant for bronchiolo- alveolar carcinoma and osteoporosis. Pt reports she and her spouse are moving to [place] in May 2021. Prior Treatments and Tests - Referral from LOUIE Mccabe: 01/24 - initiate gait training and work on pelvic imbalance. Avoid stretching until Future Testing and Treatments Planned None identified. Treatment Goals Patient/Caregiver Goals Walk without assistive device. Be able to manage preparation for moving with less pain. Return to yoga, pilates. Squat without pain. Prior Functional Status Baseline Function- Gait Independent without AD Current Functional Impairments (Reported) Functional Limitations- Mobility/Gait Pt needs 3WW for ambulation and is limited to household or short community distances. PT-OP-C Subjective Start: 02/09/21 09:18 Freq: Status: Active Protocol: Document 04/06/21 13:00 AMH (Rec: 04/06/21 15:34 AMH [id number]) OP-PT Subjective Patient Comments Patient Comments Abby reports she continues to make progress. She did do 70 stairs at her condo and is a little stiff today. PT-OP-D Balance Start: 02/09/21 09:18 Freq: Status: Active Protocol: Document 02/14/21 13:45 AW (Rec: 02/15/21 13:33 AW [email or web address]) Balance Tests Single Limb Standing Single Limb- Right unable Single Limb- Left 10 sec with fingertip support on wall PT-OP-E Functional Tests Start: 02/09/21 09:18 Freq: Status: Active Protocol: Document 02/14/21 13:45 AW (Rec: 02/15/21 13:46 AW [email or web address]) Functional Tests 6 Minute Walk Test Distance 840 feet Device Used 3WW Comments 0.7 m/s average speed with consistent split times PT-OP-F Manual Assessment Start: 02/09/21 09:18 Freq: Status: Active Protocol: Document 02/14/21 13:45 AW (Rec: 02/15/21 13:33 AW [email or web address]) Manual Assessments Soft Tissue Assessment Soft Tissue Mobility Assessment Increased tone in right groin/ adductors. Surgical scar is well-healed but with decreased mobility. PT-OP-G Mobility & Gait Start: 02/09/21 09:18 Freq: Status: Active Protocol: Document 02/14/21 13:45 AW (Rec: 02/15/21 13:33 AW [email or web address]) OP Mobility Evaluation Functional Movements Squats unable past 80 degrees due to pain OP Gait Assessment Comments Gait Comments Antalgic gait with need for walker. Pt currently using 3WW PT-OP-K Range of Motion Start: 02/09/21 09:18 Freq: Status: Active Protocol: Document 02/14/21 13:45 AW (Rec: 02/15/21 13:41 AW [email or web address]) Hip Goniometric Range of Motion Hip Right Hip ROM WFL No Testing Position Supine Flexion w/Knee Flexed 80 Comments PROM to 90 with report of pain Left Hip ROM WFL Yes Testing Position Supine Flexion w/Knee Flexed 110 Straight Leg Raise 85 Comments PROM to 125 without pain Hip ROM Limitations Hip ROM Limitations Pain Knee Goniometric Range of Motion Knee bilat Knee ROM WFL Yes Ankle and Foot Goniometric Range of Motion Ankle and Foot bilat Ankle/Foot ROM WFL Yes PT-OP-M Strength Start: 02/09/21 09:18 Freq: Status: Active Protocol: Document 02/14/21 13:45 AW (Rec: 02/15/21 13:41 AW [email or web address]) Hip Strength Hip Manual Muscle Testing Right Flexion (L2) 3+ Fair+ Abduction 3+ Fair+ Comments Extension and rotation not tested due to precautions Left Flexion (L2) 4+ Good+ Extension (S1) 4 Good Abduction 4 Good External Rotation 4+ Good+ Internal Rotation 4+ Good+ Knee Strength Knee Manual Muscle Testing Right Flexion (S2) 4 Good Extension (L3) 4 Good Left Flexion (S2) 4+ Good+ Extension (L3) 5 Normal Ankle/Foot Strength Ankle and Foot Manual Muscle Testing bilat Dorsiflexion (L4) 5 Normal Plantarflexion (S1) 4 Good PT-OP-Q Treatments Start: 02/09/21 09:18 Freq: Status: Active Protocol: Document 04/06/21 13:00 AMH (Rec: 04/06/21 13:22 [facility] [id number]) Cardio Equipment Recumbent Stepper (Sci-Fit) Duration (Minutes) 8 Resistance 3 Seat Position 7 Gym Equipment Shuttle Recovery Bilateral Squats Resistance 37# Reps/Time 3 x 10 reps Therapeutic Exercises Supine Exercises single knee to chest Reps/Minutes 2 reps holding 30nseconds to 1 minute Standing Exercises side steps in a mini squat Reps/Minutes x 2 minutes hip abduction Standing Exercise Name hip abduction, laterl leg lifts Side bilateral Reps/Minutes 3x 10 reps Manual Therapy Treatment Soft Tissue Mobilization TFL/IT band Body Location TFL/IT band & R glute med, scar mobs Mobilization Type Strumming,Sustained Pressure Intensity/Depth Moderate Body Position Sidelying Comments pillow b/w knees. good tolerance with education self application carryover. scar mobilization Body Location scar mobilization Mobilization Type Cross-Friction,Myofascial Release,Rolling,Sustained Pressure Intensity/Depth Moderate PT-OP-T Assessment and Plan Start: 02/09/21 09:18 Freq: Status: Active Protocol: Document 04/06/21 13:00 AMH (Rec: 04/06/21 15:34 AMH [id number]) Physical Therapy Assessment Assessment Summary Assessment Pt's balance is showing good improvement, she was able to do squats with side steps today without hand hold. I did talk to her about pacing herself with the stairs Physical Therapy Plan Frequency and Duration Frequency of Treatment 2x/Week Duration of Treatment 12 weeks Plan of Care Start Date 02/14/21 Plan of Care End Date 04/14/21 Next Visit Focus/Plan Next Note Type Progress Note Next Visit Plan biodex, dynamic gait training, continue working on balance and stairs, MFR over the ITB
--- NOTE | 2021-04-11 14:53 | PT.OTN ---
Current Diagnoses Unilateral primary osteoarthritis, right hip (04/11/21) Difficulty in walking, not elsewhere classified (04/11/21) Physical Therapy Treatment Note PT-OP-A Visit Information Start: 02/09/21 09:18 Freq: Status: Active Protocol: Document 04/11/21 11:15 [facility] (Rec: 04/11/21 11:43 [facility] [id number]) Out-Patient Physical Therapy Visit Information Visit Information Visit Type Treatment Note Visit Start Time 11:15 Visit Stop Time 12:00 Total Visit Minutes 45 Visit Number 10 Evaluation Information Evaluation Date 02/14/21 PT-OP-B Current Condition Start: 02/09/21 09:18 Freq: Status: Active Protocol: Document 02/14/21 13:45 AW (Rec: 02/09/21 09:26 AW [email or web address]) Current Condition History of Current Condition Onset Date 01/11/21 Current Complaints R hip pain s/p 01/11/21 R SILVER with anterior approach History of Current Condition Pt had R anterior SILVER on 01/11. She continues to have pain which is largely localized at her groin. Her surgical site is still very sore although swelling has decreased. She is using 3WW at all times but will take steps without it if she can cruise a countertop. She is not taking pain medication other than occasional ibuprofen. Her pain is sharp. She used cold initially but no longer. Pt has been doing glute sets, quad sets, and heel slides daily but reports that it hurts afterward. PMH includes levoscoliosis, low back pain, hypothyroid, L2-3 L3-4 medial branch rhizotomy 07/28/2019 with no relief. PMH also significant for bronchiolo- alveolar carcinoma and osteoporosis. Pt reports she and her spouse are moving to [place] in May 2021. Prior Treatments and Tests - Referral from LOUIE Mccabe: 01/24 - initiate gait training and work on pelvic imbalance. Avoid stretching until Future Testing and Treatments Planned None identified. Treatment Goals Patient/Caregiver Goals Walk without assistive device. Be able to manage preparation for moving with less pain. Return to yoga, pilates. Squat without pain. Prior Functional Status Baseline Function- Gait Independent without AD Current Functional Impairments (Reported) Functional Limitations- Mobility/Gait Pt needs 3WW for ambulation and is limited to household or short community distances. PT-OP-C Subjective Start: 02/09/21 09:18 Freq: Status: Active Protocol: Document 04/11/21 11:15 [facility] (Rec: 04/11/21 11:43 [facility] [id number]) OP-PT Subjective Patient Comments Patient Comments pt reports this will be her last visit. She is feeling improved with her hip overall and feels independent with her HEP and is preparing for her move so needs the extra time. Pt has little to no complaints of hip pain at this time Patient Reported Progress Improving PT-OP-D Balance Start: 02/09/21 09:18 Freq: Status: Active Protocol: Document 02/14/21 13:45 AW (Rec: 02/15/21 13:33 AW [email or web address]) Balance Tests Single Limb Standing Single Limb- Right unable Single Limb- Left 10 sec with fingertip support on wall PT-OP-E Functional Tests Start: 02/09/21 09:18 Freq: Status: Active Protocol: Document 02/14/21 13:45 AW (Rec: 02/15/21 13:46 AW [email or web address]) Functional Tests 6 Minute Walk Test Distance 840 feet Device Used 3WW Comments 0.7 m/s average speed with consistent split times PT-OP-F Manual Assessment Start: 02/09/21 09:18 Freq: Status: Active Protocol: Document 02/14/21 13:45 AW (Rec: 02/15/21 13:33 AW [email or web address]) Manual Assessments Soft Tissue Assessment Soft Tissue Mobility Assessment Increased tone in right groin/ adductors. Surgical scar is well-healed but with decreased mobility. PT-OP-G Mobility & Gait Start: 02/09/21 09:18 Freq: Status: Active Protocol: Document 02/14/21 13:45 AW (Rec: 02/15/21 13:33 AW [email or web address]) OP Mobility Evaluation Functional Movements Squats unable past 80 degrees due to pain OP Gait Assessment Comments Gait Comments Antalgic gait with need for walker. Pt currently using 3WW PT-OP-K Range of Motion Start: 02/09/21 09:18 Freq: Status: Active Protocol: Document 02/14/21 13:45 AW (Rec: 02/15/21 13:41 AW [email or web address]) Hip Goniometric Range of Motion Hip Right Hip ROM WFL No Testing Position Supine Flexion w/Knee Flexed 80 Comments PROM to 90 with report of pain Left Hip ROM WFL Yes Testing Position Supine Flexion w/Knee Flexed 110 Straight Leg Raise 85 Comments PROM to 125 without pain Hip ROM Limitations Hip ROM Limitations Pain Knee Goniometric Range of Motion Knee bilat Knee ROM WFL Yes Ankle and Foot Goniometric Range of Motion Ankle and Foot bilat Ankle/Foot ROM WFL Yes PT-OP-M Strength Start: 02/09/21 09:18 Freq: Status: Active Protocol: Document 02/14/21 13:45 AW (Rec: 02/15/21 13:41 AW [email or web address]) Hip Strength Hip Manual Muscle Testing Right Flexion (L2) 3+ Fair+ Abduction 3+ Fair+ Comments Extension and rotation not tested due to precautions Left Flexion (L2) 4+ Good+ Extension (S1) 4 Good Abduction 4 Good External Rotation 4+ Good+ Internal Rotation 4+ Good+ Knee Strength Knee Manual Muscle Testing Right Flexion (S2) 4 Good Extension (L3) 4 Good Left Flexion (S2) 4+ Good+ Extension (L3) 5 Normal Ankle/Foot Strength Ankle and Foot Manual Muscle Testing bilat Dorsiflexion (L4) 5 Normal Plantarflexion (S1) 4 Good PT-OP-Q Treatments Start: 02/09/21 09:18 Freq: Status: Active Protocol: Document 04/11/21 11:15 [facility] (Rec: 04/11/21 14:52 [facility] [id number]) Cardio Equipment Recumbent Stepper (Sci-Fit) Duration (Minutes) 10 Resistance 3 Seat Position 7 Gym Equipment Shuttle Recovery Bilateral Squats Resistance 50# Reps/Time 3 x 10 reps Therapeutic Exercises Standing Exercises side steps in a mini squat Reps/Minutes x 2 minutes hip abduction Standing Exercise Name hip abduction, laterl leg lifts Side bilateral Reps/Minutes 3x 10 reps Other Exercises sit to stand Reps/Minutes 2 x 10 reps Comments no use of hands Manual Therapy Treatment Soft Tissue Mobilization TFL/IT band Body Location TFL/IT band & R glute med, scar mobs Mobilization Type Strumming,Sustained Pressure Intensity/Depth Moderate Body Position Sidelying Comments pillow b/w knees. good tolerance with education self application carryover. PT-OP-T Assessment and Plan Start: 02/09/21 09:18 Freq: Status: Active Protocol: Document 04/11/21 11:15 [facility] (Rec: 04/11/21 14:52 [facility] [id number] Physical Therapy Assessment Goals Four Impairment gait Impairment Pt requires 3WW for household and community ambulation Short Term Goal (STG) Pt will ambulate 1000 feet on 6MWT with LRAD as a measure of decreased pain and increased self-efficacy in gait. 03/28/21: GOAL MET 1322 ft , no AD STG Duration 03/21/21 GOAL MET Toolroom Attendant Goal (LTG) Pt will ambulate 1250 feet on 6MWT without assistive device as a measure of decreased pain and increased self-efficacy in gait. 04/11/21 GOAL MET LTG Duration 04/14/21 progressing. Three Impairment balance Short Term Goal (STG) Pt will improve SLS to 10 seconds or greater bilaterally to improve stability in gait. 03/28/21: GOAL MET: 30 sec SLS R and L. STG Duration 03/21/21 GOAL MET Residential Goal (LTG) Pt will score 24 or greater on Functional Gait Assessment ( consistent with age-matched peers) as a measure of improved dynamic balance. GOAL MET LTG Duration 04/14/21 Two Impairment impaired right hip ROM Short Term Goal (STG) Pt will improve supine hip AROM (with knee flexed) to 100 degrees for improved safety with stair navigation GOAL MET STG Duration 03/21/21 Toolroom Attendant Goal (LTG) Pt will improve supine hip AROM (with knee flexed) to 110 degrees or greater for ease with dressing tasks and other ADL's. GOAL MET LTG Duration 04/14/21 One Impairment lacks HEP Short Term Goal (STG) Pt will be instructed in progressive HEP for hip ROM, strength, and stability GOAL MET STG Duration 03/21/21 Toolroom Attendant Goal (LTG) Pt will be independent with progressive HEP for hip ROM, strength, and stability to improve her gait quality and reduce risk of falls. GOAL MET LTG Duration 04/14/21 Assessment Summary Assessment pt is ambulating now without a visable limp, her speed has increased and she has no pain. She was able to ambulate up and down stairs without a hand hold today. Abby is moving to [facility] and today will be her last scheduled visit in PT . She will be discharged at this time. Physical Therapy Plan Therapeutic Interventions Therapeutic Interventions Aquatic Therapy,Balance Training,Gait Training,Home Exercise Program,Joint Mobilizations,Manual Therapy, Neuromuscular Re-education, Self-Care/Home Management,Soft Tissue Mobilization,Taping, Therapeutic Activities, Therapeutic Exercises Modalities Cold Pack/Ice Massage,Electric Stimulation,Hot Packs Discharge Physical Therapy Discharge Reasons Goals Met Discharge Comments Discharge to a I HEP
== END 2021-04-11 11:16 ==
LOC: PHYS 11:15
PROVIDERS: Family Provider Family Medicine; PCP Family Medicine; Referring Provider Family Medicine; Visit Provider Family Medicine
DX: M16.11 Unilateral primary osteoarthritis, right hip (principal); R26.2 Difficulty in walking, not elsewhere classified
CPT/HCPCS: 97110; 97112; 97116; 97140; 97161

== ENCOUNTER → 2021-04-17 14:20 | Outpatient (CLI) | payer MEDICARE, OTHER, SELFPAY ==
[2021-04-17 15:46] LABS: Iron 78 ug/dL (37-170)
[2021-04-17 16:36] LABS: Vitamin B12 399 pg/mL (239-931)
[2021-04-17 17:31] LABS: Folate 7.3 ng/mL (2.76-20.0)
[2021-04-18 17:43] LABS: Zinc 68 ug/dL (44-115)
== END ==
PROVIDERS: Family Provider Family Medicine; PCP Family Medicine; Referring Provider Dentist; Visit Provider Dentist
DX: B37.0 Candidal stomatitis (principal); K14.6 Glossodynia; D64.9 Anemia, unspecified
CPT/HCPCS: 36415; 82607; 82746; 83540; 84630